=== PATIENT | male | born 1940 | race African-American/Black ===

== ENCOUNTER 2018-01-08 12:09 | Inpatient (IN) ==
[2018-01-08] MEDS ORDERED: FUROSEMIDE 40 MG/4 ML INJECTION IVP ONE (12:33)
--- NOTE | 2018-01-08 12:44 | Emergency Department Report ---
SOB HPI - General Chief Complaint: Shortness of Breath/Dyspnea Stated Complaint: unknown Time Seen by Provider: 01/08/18 12:24 Source: patient, EMS, RN notes reviewed, old records reviewed Mode of arrival: EMS Limitations: no limitations - History of Present Illness 77yo man presents to the ER by EMS for evaluation of dyspnea. Pt was being evaluated by his home health nurse today, when she noted a persistent hypoxemia. Pt has had problems with ERIC and dyspnea since his CABG less than 30 days ago. He was hospitalized less than one week ago for similar sx in [place]; while there, he was diuresed. When discharged, he was not given any diuretics. He normally desat's into the 70-80s with exertion, but pops back up quickly with rest. Today, he did not improve after 10min of rest. Pts legs have been significantly swollen since last night. PT had AMI on 12/25 followed by CABG at [facility]. He was released 12/29 with known slightly elevated creatine. Pt had repeat labs drawn yesterday with an even greater increase and was instructed to go to the ER for further eval. Pt denies any additioanl complaints however family reports decreased appetite, increased foot swelling as well increased difficulty breathing with ambulation. Pt denies fever, chills, cough, nausea, vomiting, diarrhea or chest pain. MD Complaint: shortness of breath Onset (ago): hour(s) Context: recent illness Severity: similar to previous episodes Consistency/Duration: constant Relieving factors: oxygen, rest, upright position Exacerbating factors: lying flat, exertion Known history of: congestive heart failure, other (CABG) Associated symptoms: other (ERIC) Treatment prior to arrival: oxygen - Related Data Home oxygen amount: 4 liters (to 6cm by DE) Home Medications Medication Instructions Recorded Confirmed Aspirin [Adult Aspirin] 81 mg PO DAILY 01/02/18 01/08/18 Atorvastatin [Lipitor] 40 mg PO DAILY 01/02/18 01/08/18 Carvedilol 6.25 mg PO BID 01/02/18 01/08/18 Finasteride [Proscar] 5 mg PO DAILY 01/02/18 01/08/18 Multi-Vitamin Plain [Theragran] 1 tab PO DAILY 01/02/18 01/08/18 PredniSONE [Deltasone 5 mg] 5 mg PO DAILY 01/02/18 01/08/18 Allergies Allergy/AdvReac Type Severity Reaction Status Date / Time No Known Allergies Allergy Verified 01/08/18 12:48 Review of Systems All systems: reviewed and negative except as stated Cardiovascular: Reports: as per HPI, palpitations, dyspnea on exertion, orthopnea, edema. Denies: chest pain, syncope, paroxysmal nocturnal dyspnea Respiratory: Reports: as per HPI, dyspnea. Denies: cough, wheezes, hemoptysis, stridor PFS Patient Stated Medical History Coronary Artery Disease Yes Myocardial Infarction Yes Diabetes Mellitus Type 2 Yes Gastroesophageal Reflux Yes Disease Hx Benign Prostatic Yes Hyperplasia - Social History Smoking status: Former smoker Course - Consultations Consultation #1: Hospitalist: Concern that there is another condition underlying his recent hypoxia, besides just CHF exacerbation. Will admit for further eval. Time: 15:00 Vital Signs Temperature 97.9 F 01/08/18 12:10 Pulse Rate 116 H 01/08/18 12:10 Respiratory Rate 21 01/08/18 12:10 Blood Pressure 135/74 01/08/18 12:10 Pulse Oximetry 91 01/08/18 12:10 Temperature 97.9 F 01/08/18 12:10 Pulse Rate 106 H 01/08/18 13:30 Respiratory Rate 24 01/08/18 13:30 Blood Pressure 139/85 01/08/18 13:30 Pulse Oximetry 93 01/08/18 14:44 Shortness of Breath/Dyspnea - MDM Narrative Medical decision making narrative: Pt with ERIC and hypoxia/dyspnea at rest. Pts renal function has dramatically improved since last ER visit, 6 days ago. However, after diuresis here, hypoxia has not improved to baseline. Discussed care with hospitalist, who has concerns for another, underlying condition contributing to his hypoxia. Will admit for further eval and treatment. - Differential Diagnosis Likely: acute exacerbation of chronic obstructive airways disease, congestive heart failure, community acquired pneumonia, asthma with exacerbation - Medical Records Attestation: I reviewed the patient's medical records. - Lab Data Attestation: I reviewed the patient's lab results. Result diagrams: 01/08/18 13:19 01/08/18 13:19 Lab Results 01/08/18 01/08/18 01/08/18 Range/Units 13:19 13:19 13:24 WBC 13.7 H (4.5-11.0) T/MM3 RBC 4.14 L (4.50-5.90) M/MM3 Hgb 12.3 L (13.5-17.5) GM/DL Hct 38.1 L (41-53) % MCV 92.0 (80-100) UM3 MCH 29.7 (26-34) UUG MCHC 32.3 (31-37) GM/DL RDW Std Deviation 47.9 (36.9-50.2) FL Plt Count 288 (130-400) T/MM3 MPV 8.3 L (9.4-12.4) UM3 Immature Gran % (Auto) 0.2 (0.0-0.5) % Neut % (Auto) 70.9 H (33-66) % Lymph % (Auto) 17.5 L (23-45) % Baldwin % (Auto) 8.4 (0-9.0) % Eos % (Auto) 2.6 (0-4) % Baso % (Auto) 0.4 (0-2) % Neut # (Auto) 9.7 H (1.8-7.7) T/MM3 Lymph # (Auto) 2.4 (1-4.8) T/MM3 Baldwin # (Auto) 1.2 H (0-0.8) T/MM3 Eos # (Auto) 0.4 (0-0.5) T/MM3 Baso # (Auto) 0.1 (0-0.2) T/MM3 Abs Immat Gran (auto) 0.03 (0.00-0.03) T/MM3 Turbidity < 20 (0-20) Sodium 147 H (134-144) MEQ/L Potassium 4.1 (3.6-5) MEQ/L Chloride 110 H (98-107) MEQ/L Carbon Dioxide 26 (22-30) MEQ/L Anion Gap 11 (5-15) meq/L BUN 33.0 H (9-20) MG/DL Creatinine 1.9 H (0.8-1.5) mg/dL GFR Calculation 34 BUN/Creatinine Ratio 17 (6-26) RATIO Glucose 115 H (75-110) MG/DL Glucometer 116 (65-110) mg/dL Calculated Osmolality 290 H (261-280) MOSM/KG Calcium 8.9 (8.4-10.2) MG/DL Icterus Index < 2 (0-7) Troponin I 0.079 (0-0.12) ng/ml NT-Pro-B Natriuret Pep 2370 H (0-175) pg/mL Specimen Hemolysis < 15 (0-25) - Radiology Data Attestation: I reviewed the patient's radiology results. CXR: Findings: Persistent airspace consolidation in the left mid to lower lung field with patchy areas of airspace consolidation in the right midlung and lower lobe. No pneumothorax. No obvious pleural effusion. Heart size and mediastinal contours are stable. Prior CABG. Impression: Stable abnormal appearance of the chest with bilateral airspace disease. - EKG Data EKG #1 EKG attestation: Yes: I reviewed and interpreted this EKG. EKG shows normal: sinus rhythm, intervals, ST-T waves Rate: tachycardia Mckinney/QRS: left axis deviation Voltage: c/w LVH When compared to previous EKG there are: no significant changes Interpretation: no acute changes Disposition Clinical Impression: Hypoxia Congestive heart failure Qualifiers: Heart failure type: unspecified Heart failure chronicity: acute on chronic Qualified Code(s): I50.9 - Heart failure, unspecified CRF (chronic renal failure) Qualifiers: Chronic kidney disease stage: stage 4 (severe) Qualified Code(s): N18.4 - Chronic kidney disease, stage 4 (severe) Disposition: 02 To [facility] Print Language: Romanian Condition: Improved Prescriptions: No Action Aspirin [Adult Aspirin] 81 mg PO DAILY PredniSONE [Deltasone 5 mg] 5 mg PO DAILY Carvedilol 6.25 mg PO BID Atorvastatin [Lipitor] 40 mg PO DAILY Multi-Vitamin Plain [Theragran] 1 tab PO DAILY Finasteride [Proscar] 5 mg PO DAILY Referrals: Ankit Calderón MD [Primary Care Provider] - Time of Disposition: 15:13 - Seen By: physician
[2018-01-08] MEDS: SALINE FLUSH 10ml SYRINGE IVF PRN ×2 (13:05→18:49)
--- NOTE | 2018-01-08 13:10 | XRay Report ---
Indication: dyspnea PROCEDURE: XR chest 1V: Encounter: Initial Comparison: January 02, 2018 Findings: Persistent airspace consolidation in the left mid to lower lung field with patchy areas of airspace consolidation in the right midlung and lower lobe. No pneumothorax. No obvious pleural effusion. Heart size and mediastinal contours are stable. Prior CABG. Impression: Stable abnormal appearance of the chest with bilateral airspace disease. .
[2018-01-08] MEDS ORDERED: SENNA + DOCUSATE TABLET PO PRN (15:19)
[2018-01-08] MEDS ORDERED: ONDANSETRON 4 MG/2 ML INJECTION IVP PRN (15:19)
[2018-01-08] MEDS ORDERED: ACETAMINOPHEN 325 MG TABLET PO PRN (15:19)
[2018-01-08] MEDS ORDERED: MORPHINE SULFATE 4mg INJECTION IVP PRN (15:19)
[2018-01-08] MEDS: BUDESONIDE INH.SOLN 0.5mg/2ml NEB AEROSOL SCH (16:00)
[2018-01-08] MEDS: ALBUTEROL/IPRATROPIUM 2.5mg-0.5mg/3ml NEB AEROSOL SCH ×2 (16:00→21:19)
[2018-01-08 16:37] VITALS: BMI 31.8
--- NOTE | 2018-01-08 17:25 | History & Physical Report ---
History of Present Illness Date: 01/08/18 Chief complaint: acute on chronic respiratory failure, hypernatremia HPI: Jaime Villegas is a very pleasant 77[facility]year-old [facility] today, 01/08/18, for evaluation of hypoxia. He reports that on 12/20/17 he was admitted to [facility] in [place] and found to be having an acute STEMI. He subsequently underwent an emergent CABG x [address] Hawley on 12/20/17. He has a reported history of pulmonary fibrosis which complicated his respiratory status post-operatively. He was noted to have a leukocytosis but remained afebrile. He was treated with prednisone 10mg daily as well as IV Cefepime. Sputum culture on 12/24/17 revealed pseudomonas aeruginosa. He was discharged home on 12/29/17 on Levaquin as well as prednisone 5mg daily for continued pulmonary treatment. He also sustained an acute kidney injury with his SCr increasing to 1.84 post-operatively after receiving Bumex and metolazone. His reported baseline SCr is 1.3-1.6. Diuretics were held and he was given a slow bolus of IV fluids. His renal function slowly began trending down at time of discharge on 12/29/17 at 1.76. He reports that after returning home where he lives alone, he was doing well. He had follow-up labs done on 01/02/18 and was notified by his manufacturing scheduler that his SCr was elevated at 3. He was instructed to go to the emergency department. He presented to [facility] and was transferred to [facility] for continuation of care. Upon arrival to [facility], his weight was noted to be 100.6 kg (decreased from his weight of 106kg at time of CABG). His respiratory status was reportedly stable on his baseline 4L NC with no peripheral edema noted. Dr. Brandon, nephrology, was consulted and all nephrotoxic drugs were held including diuresis. Renal ultrasound was unremarkable. Pulmonary was consulted for further evaluation of his idiopathic pulmonary fibrosis and recommended continuation of prednisone 5mg daily with consideration of PFTs and sleep evaluation as an outpatient. He was treated with gentle hydration with slow improvement in his renal function, trending down to 1.99 on discharge from 3.06 on admission. At the time of discharge, he was recommended to consider SNU but he refused. He was discharged home with home health. Today, 01/08/18, he reports that his home health nurse was checking on him and reported that his oxygen saturation was low at 78% on 4L. He denies any increased shortness of breath, chest pain, abdominal pain, nausea, vomiting or dysuria. He does admit to having increased pedal edema though denies any cough , sputum production, dizziness or lightheadedness. He was brought to [facility] via EMS. Upon arrival, he was requiring 10L high flow oxygen which was able to be decreased to 6L with a pulse ox of 91%. Labs were obtained and revealed persistent leukocytosis (WBC 13.7) which is decreased from prior labs at [facility]. Anemia (Hgb 12.3) also noted with hypernatremia (Na 147). SCr remains elevated from base line at 1.9 with BUN 33. Troponin wsa 0.079 and BNP was 2370. CXR was obtained and revealed stable abnormal appearance of chest with bilateral airspace disease. Given his acute on chronic respiratory failure with leukocytosis and hypernatremia, Dr. Beaver was consulted and he was admitted into observation status for further evaluation and treatment. While in the ED, he was given Lasix 40mg IV x 1 dose. Weight on admission was found to be 101kg (as compared to his prior weight on 01/03/18 at 100.6 kg). Review of Systems All systems PM: 10-point ROS was reviewed, no additional remarkable complaints except - Constitutional Constitutional: Absent: chills, fatigue, fever(s), weakness - EENMT Eyes: Absent: change in vision, photophobia Ears: Absent: ear pain Balance: Absent: falling to one side Nose: Absent: nosebleeds Mouth/Throat: Absent: pain, changes in swallowing, dry mouth - Cardiovascular Cardiovascular: Present: chest pain (secondary to recent surgery), dyspnea on exertion, edema. Absent: palpitations, syncope Rhythm: Present: regular rhythm Vascular: Present: pedal edema. Absent: pallor of an extermity, unilateral swelling - Respiratory Respiratory: Present: dyspnea, dyspnea on exertion. Absent: cough, hemoptysis, wheezing - Gastrointestinal Gastrointestinal: Absent: abdominal pain, diarrhea, melena, nausea, vomiting - Genitourinary Genitourinary: Absent: dysuria, flank pain, hematuria - Musculoskeletal Musculoskeletal: Absent: deformity, muscle weakness - Integumentary/Breasts Integumentary: Absent: rash - Neurological Neurological: Absent: dizziness, headache(s), vertigo, weakness - Psychiatric Psychiatric: Absent: anxiety, depression - Endocrine Endocrine: Absent: flushing, palpitations - Hematologic/Lymphatic Hematologic/Lymphatic: Present: easy bruising (recent treatment with heparin) - Allergic/Immunologic Allergic/Immunologic: Absent: seasonal rhinorrhea Past Medical History Medical History Updates: Chronic hypoxic respiratory failure. Supplemental home oxygen dependence at 4L NC. Idiopathic pulmonary fibrosis. Former tobaccoism. Obesity - BMI >30. CAD - CABG x 3 on 12/20/17. CHF - grade 1 diastolic dysfunction - EF 40-45%, mild MR/TR. Recent AMELIA - SCr increased to 3.06 on 01/02/18. Chronic kidney disease, stage 3 - baseline SCr 1.3-1.6. Hyperlipidemia. BPH. GERD. Surgical History: CABG x 3 - 12/20/17, Dr. Hawley. Tonsillectomy. Family History: Unable to obtain as patient is a poor historian. Possible family history of TB. Family History: As Above - Social History Smoking status: Former smoker (quit 1973) Packs per day: 1 Packs-years: 20 Substance use type: does not use Alcohol intake frequency: does not drink Housing: house Household members: none service: Yes Current occupational status: retired Does patient use chewing tobacco?: No Current residence: Apartment/Private Home Social history: PCP - Dr. Ankit Calderón ([facility]). Nephro - Dr. Brandon. Cardio - Dr. Hawley. Pulm - Dr. Hi. Medications Home Medications Medication Instructions Recorded Confirmed Type Aspirin [Adult Aspirin] 81 mg PO DAILY 01/02/18 01/08/18 History Atorvastatin [Lipitor] 40 mg PO DAILY 01/02/18 01/08/18 History Carvedilol 6.25 mg PO BID 01/02/18 01/08/18 History Finasteride [Proscar] 5 mg PO DAILY 01/02/18 01/08/18 History Multi-Vitamin Plain [Theragran] 1 tab PO DAILY 01/02/18 01/08/18 History PredniSONE [Deltasone 5 mg] 5 mg PO DAILY 01/02/18 01/08/18 History Allergies Allergy/AdvReac Type Severity Reaction Status Date / Time No Known Allergies Allergy Verified 01/08/18 12:48 Exam Vital Signs: Temperature 97.9 F 01/08/18 12:10 Pulse Rate 106 H 01/08/18 16:27 Respiratory Rate 24 01/08/18 16:27 Blood Pressure 135/72 01/08/18 15:44 Pulse Oximetry 97 01/08/18 16:27 Telemetry Rhythm: Sinus Tachycardia Height/Weight/BMI: Height 5 ft 10 in Weight 222 lb 7.143 oz Body Mass Index 31.8 Comments: Patient sitting up in bed having just received a breathing treatment. Breathing easily on 6L NC. - Constitutional Present: no acute distress, well nourished, well developed, obese, cooperative - Routine HEENT Exam Head: Present: normocephalic, atraumatic Eye: Present: PERRL. Absent: conjunctival icterus ENT: Present: mucous membranes moist, oropharynx clear - Routine Neck Exam Present: supple, full ROM, trachea midline - Routine Chest/Breast/Axilla Exam Chest wall: Absent: pacemaker - Routine Respiratory Exam Present: decreased breath sounds. Absent: wheezes Comments: Diminished breath sounds bilaterally with course breath sounds in bilateral bases. - Routine Cardiovascular Exam Present: S1, S2, tachycardia Comments: healing surgical incision along sternum without signs of infection. - Routine Abdominal Exam Present: soft, normoactive bowel sounds, non tender - Routine Extremities Exam Present: edema (2+ bilateral pedal), non tender, full ROM, pulses intact - Routine Back/Spine/Pelvis Exam Back/Spine: Present: full ROM. Absent: vertebral tenderness - Routine Skin Exam Present: intact, dry, warm Comments: Afebrile. - Routine Neurological Exam Present: alert, moving all extremities, hearing grossly intact, normal speech some difficulty recalling details regarding past history and recent events. - Routine Psychiatric Exam Present: cooperative Results - Labs CBC & Chem 7: 01/08/18 13:19 01/08/18 13:19 Assessment and Plan Assessment and Plan: Assessment: Acute medical conditions present on admission: Acute on chronic hypoxic and hypercapnic respiratory failure. Leukocytosis (WBC 13.7). Anemia (Hgb 12.3). Hypernatremia (Na 147). Chronic medical conditions: Supplemental home oxygen dependence at 4L NC. Idiopathic pulmonary fibrosis. Former tobaccoism. Obesity - BMI >30. CAD - CABG x 3 on 12/20/17. CHF - grade 1 diastolic dysfunction - EF 40-45%, mild MR/TR. Recent AMELIA - SCr increased to 3.06 on 01/02/18. Chronic kidney disease, stage 3 - baseline SCr 1.3-1.6. Hyperlipidemia. BPH. GERD. Plan - 01/08/18: Patient admitted to observation status under the care of Dr. Beaver. Concern for SIRS/sepsis, though no infection identified. Suspect pulmonary source. Initiate zosyn IV for empiric pulmonary coverage. Lasix 40mg IV x 1 dose given in ED due to concern for fluid overload. Weight up 1 kg in 1 week. Monitor urinary output closely as well as daily weight. Given persistent leukocytosis with respiratory failure, will obtain blood cultures as well as sputum culture. Sputum culture on 12/24/17 revealed pseudomonas aeruginosa which was treated with Cefepime while inpatient and Levaquin as outpatient - course complete. Initial lactate 1.8. Troponin 0.079 and BNP 2370. Will monitor serial troponins and lactates. Will monitor closely on telemetry with continuous pulse oximetry. Supplemental oxygen as needed to maintain SAO2 >90%. Baseline on 4L NC at home. Will consult pulmonology given history of pulmonary fibrosis. Continue home prednisone 5mg daily. Initiate DuoNeb treatments as well as Pulmicort. Incentive spirometry. SCr elevated compared to baseline at 1.9. 1.99 on 01/06/18. Continue to monitor closely. Recheck labs in AM to monitor blood counts, electrolytes and renal function. Upon discharge, his care will be returned to his PCP at the [place]. He requests to be a FULL CODE. DVT Prophylaxis: SCD's Resuscitation Status: Full Code - Time spent with patient Time with patient PN: 70 minutes - Physician Narrative Physician: Olga Beaver MD Narrative: Date: 01/08/18 Time: 1800 Mr. Villegas was independently interviewed and examined by me. He is resting comfortably. He tells me the only reason he's here is because his home health nurse came and found his oxygen saturation lower than it should be. He denies feeling bad. He denies shortness of breath. He denies cough or sputum production. He denies any fevers or chills. He denies any chest pain or palpitations. He does have lower extremity edema but reports that is actually better than it has been. He denies any nausea, vomiting, diarrhea, constipation. His most recent bowel movement was yesterday. He denies any problems urinating. PE: Gen: alert and oriented. NAD, oxygen in place Skin: warm and dry HEENT: NC/AT PERRL, EOMI, Sclera, lids and conjunctiva wnl, MMM, OP clear Neck: supple. No JVD, Carotids 2+ without bruits. Lungs: coarse BS, No rales or wheezes CV: regular. No murmur, rub or gallop Abd: soft. NT/ND, +BS MS: 2+ edema, some wrinkling indicating decreased edema. SCDs in place. Good strength and ROM. Neuro: No focal deficit Psy: normal mood and affect Assessment and plan: Acute on chronic hypoxic and hypercapnic respiratory failure. -On chronic oxygen therapy -May need diureses but for now will hold off -Antibiotics -Pt did receive Lasix 40mg IV in ED Leukocytosis (WBC 13.7). -Initiate zosyn for pseudomonas -Repeat lab in am Anemia (Hgb 12.3). Hypernatremia (Na 147). -Follow labs Idiopathic pulmonary fibrosis. -Consult Pulm -On predisone Obesity - BMI >30. CAD - CABG x 3 on 12/20/17. -On aspirin, statin and BBL CHF - grade 1 diastolic dysfunction - EF 40-45%, mild MR/TR. -Diurese as needed Recent AMELIA - SCr increased to 3.06 on 01/02/18. Chronic kidney disease, stage 3 - baseline SCr 1.3-1.6. -Follow renal function Hyperlipidemia. -On lipitor BPH. -On finasteride GERD. -Start PPI Upon discharge, [facility] He requests to be a FULL CODE. DVT Prophylaxis: SCD's I have reviewed the patient's labs, notes and imaging. The assessment and plan has been done in conjunction with Edith turner physician ict sales assistant. I agree with was documented above. Hospital Course Summary Disclaimer: The visit summary below is not to be considered part of the above Progress Note. Hospital Course: Plan - 01/08/18: Patient admitted to observation status under the care of Dr. Sd. Concern for SIRS/sepsis, though no infection identified. Suspect pulmonary source. Initiate zosyn IV for empiric pulmonary coverage. Lasix 40mg IV x 1 dose given in ED due to concern for fluid overload. Weight up 1 kg in 1 week. Monitor urinary output closely as well as daily weight. Given persistent leukocytosis with respiratory failure, will obtain blood cultures as well as sputum culture. Sputum culture on 12/24/17 revealed pseudomonas aeruginosa which was treated with Cefepime while inpatient and Levaquin as outpatient - course complete. Initial lactate 1.8. Troponin 0.079 and BNP 2370. Will monitor serial troponins and lactates. Will monitor closely on telemetry with continuous pulse oximetry. Supplemental oxygen as needed to maintain SAO2 >90%. Baseline on 4L NC at home. Will consult pulmonology given history of pulmonary fibrosis. Continue home prednisone 5mg daily. Initiate DuoNeb treatments as well as Pulmicort. Incentive spirometry. SCr elevated compared to baseline at 1.9. 1.99 on 01/06/18. Continue to monitor closely. Recheck labs in AM to monitor blood counts, electrolytes and renal function. Upon discharge, his care will be returned to his PCP at the [place]. He requests to be a FULL CODE.
[2018-01-08] MEDS: CARVEDILOL 6.25 MG TABLET PO SCH (18:04)
[2018-01-08] MEDS: PIPERACILLIN/TAZOBACTAM 3.375 GM in NS 100 ML IV SCH (18:48)
[2018-01-08] MEDS: NS FLUSH BAG 500ml IV PRN (18:53)
[2018-01-08] MEDS ORDERED: ALBUTEROL/IPRATROPIUM 2.5mg-0.5mg/3ml NEB AEROSOL SCH (19:00)
[2018-01-08] MEDS: ATORVASTATIN 40 MG TABLET PO SCH (21:36)
[2018-01-09] MEDS: ALBUTEROL/IPRATROPIUM 2.5mg-0.5mg/3ml NEB AEROSOL SCH ×6 (02:01→21:20)
[2018-01-09] MEDS: PIPERACILLIN/TAZOBACTAM 3.375 GM in NS 100 ML IV SCH ×2 (02:44→11:04)
--- NOTE | 2018-01-09 09:31 | XRay Report ---
INDICATION: Pna PROCEDURE: CHEST 2-VIEWS UPRIGHT (PA & LAT) Encounter: Initial COMPARISON: January 08, 2018 FINDINGS: Lungs are hypoinflated with bilateral airspace disease, much greater on the left. No pneumothorax or obvious pleural effusion. Heart size and mediastinal contours are stable. Prior sternotomy changes. Impression: Continued severe airspace disease on the left could be due to pneumonia, aspiration or edema. Chest CT may be helpful to exclude mass as clinically indicated. .
[2018-01-09] MEDS: BUDESONIDE INH.SOLN 0.5mg/2ml NEB AEROSOL SCH ×2 (09:46→21:20)
--- NOTE | 2018-01-09 10:09 | Progress Note ---
- Date 01/09/18 Subjective: F/U: acute on chronic respiratory failure, anemia, hypernatremia. Jaime is seen while resting in bed. He reports that he is feeling good and denies any complaints or concerns. No chest pain, increased shortness of breath , abdominal pain, nausea, vomiting or dysuria. He states he didn't have much of an appetite today. Urinary output stable. WBC remains stable at 13.7. Slight decrease in hemoglobin at 11.8. Persistent hypernatremia (Na 148) and slight increase in SCr to 2.0 (up from 1.9). Patient received Lasix 40mg IV x 1 dose in ED prior to admission. Serial troponins tended up, but now trending down (0.079, 0.089, 0.105, 0.106, 0.098). He remains tachycardic with low grade temperature at 99.0. Serial lactate 1.8 then decreased to 1.6. Procalcitonin 0.08. Repeat CXR this morning revealed continued severe airspace disease on left could be pneumonia, aspiration or edema. Recommends CT chest. Objective Vital signs: Temperature 99.0 F 01/09/18 04:00 Pulse Rate 103 H 01/09/18 04:00 Respiratory Rate 18 01/09/18 05:41 Blood Pressure 132/79 01/09/18 04:00 Pulse Oximetry 92 01/09/18 05:41 Rhythm: Sinus Tachycardia Height/Weight/BMI: Height 5 ft 10 in Weight 222 lb 7.143 oz Body Mass Index 31.8 Comments: Resting in bed. - Constitutional Present: no acute distress, well nourished, well developed, cooperative - Routine HEENT Exam Head: Present: normocephalic, atraumatic Eye: Present: PERRL. Absent: conjunctival icterus ENT: Present: mucous membranes dry, oropharynx clear - Routine Respiratory Exam Comments: Diminished breath sounds bilaterally with bilateral course sounds. No cough or conversational dyspnea. - Routine Cardiovascular Exam Present: S1, S2, tachycardia - Routine Abdominal Exam Present: soft, normoactive bowel sounds, non tender - Routine Extremities Exam Present: edema (trace), non tender, pulses intact - Routine Back/Spine/Pelvis Exam Back/Spine: Present: full ROM. Absent: vertebral tenderness - Routine Musculoskeletal Exam Musculoskeletal: Present: no clubbing or cyanosis, moving extremities well - Routine Skin Exam Present: intact, dry, warm Comments: low grade temperature 99.0. - Routine Neurological Exam Present: alert, moving all extremities, hearing grossly intact, normal speech - Routine Lymphatic Exam Lymphatic: Absent: lymphedema - Routine Psychiatric Exam Present: cooperative Results - Labs CBC & Chem 7: 01/09/18 04:41 01/09/18 04:41 Microbiology Results: Microbiology 01/08/18 23:55 Sputum, Expectorated Gram Stain - Final Not performed 01/08/18 23:55 Sputum, Expectorated Sputum Culture - Preliminary Culture Initiated - Results Pending 01/08/18 17:35 Sputum, Induced Gram Stain - Final 01/08/18 17:35 Sputum, Induced Sputum Culture - Final 01/08/18 17:12 Peripheral/Iv Start Blood Culture - Preliminary Culture Initiated - Results Pending 01/08/18 17:07 Peripheral/Iv Start Blood Culture - Preliminary Culture Initiated - Results Pending - Imaging and Cardiology Chest x-ray Status: image reviewed by me Additional comments: Date of Exam: 01/09/18 Type of Exam(s): XR chest 2V Reason for Exam(s): Pna INDICATION: Pna PROCEDURE: CHEST 2-VIEWS UPRIGHT (PA & LAT) Encounter: Initial COMPARISON: January 08, 2018 FINDINGS: Lungs are hypoinflated with bilateral airspace disease, much greater on the left. No pneumothorax or obvious pleural effusion. Heart size and mediastinal contours are stable. Prior sternotomy changes. Impression: Continued severe airspace disease on the left could be due to pneumonia, aspiration or edema. Chest CT may be helpful to exclude mass as clinically indicated. Assessment and Plan Assessment and Plan: Assessment: Acute medical conditions present on admission: Pneumonia Acute on chronic hypoxic and hypercapnic respiratory failure. Leukocytosis (WBC 13.7). Anemia (Hgb 12.3). Hypernatremia (Na 147). Chronic medical conditions: Supplemental home oxygen dependence at 4L NC. Idiopathic pulmonary fibrosis. Former tobaccoism. CAD - CABG x 3 on 12/20/17. CHF - grade 1 diastolic dysfunction - EF 40-45%, mild MR/TR. Recent AMELIA - SCr increased to 3.06 on 01/02/18. Chronic kidney disease, stage 3 - baseline SCr 1.3-1.6. Hyperlipidemia. BPH. GERD. Obesity - BMI >30. Plan - 01/09/18: Continued increased oxygen demand, elevated renal function and white count. Continued concern for SIRS/sepsis, though no infection identified. Suspect pulmonary source. Continue Zosyn IV for empiric pulmonary coverage (day 2). Blood and sputum cultures pending. Slight increase in SCr to 2.0 (up from 1.9). Lasix 40mg IV x 1 dose given in ED prior to admission. Urinary output adequate. Continue to monitor urinary output closely. Hypernatremia with slight increase in Na to 148. Patient appears clinical dry. Will initiate NS 75cc/hr for gentle hydration. Sputum culture on 12/24/17 revealed pseudomonas aeruginosa which was treated with Cefepime while inpatient and Levaquin as outpatient - course complete. Initial lactate 1.8 - decreased to 1.6. Troponin 0.079, 0.089, 0.105, 0.106, 0.098. Will consult cardiology given recent CABG and persistent tachycardia. Will monitor closely on telemetry with continuous pulse oximetry. Supplemental oxygen as needed to maintain SAO2 >90%. Baseline on 4L NC at home. Wean as able. Continues to have increased oxygen demands. Will consult pulmonology given history of pulmonary fibrosis. Continue home prednisone 5mg daily. Initiate DuoNeb treatments as well as Pulmicort. Incentive spirometry. Continue respiratory cares. Recheck labs in AM to monitor blood counts, electrolytes and renal function. [place] With continued increased need for oxygen above and beyond baseline, coupled with pneumonia, will change admission status to inpatient. DVT Prophylaxis: SCD's Resuscitation Status: Full Code - Time spent with patient Time with patient PN: 30 minutes - Physician Narrative Physician: Remigio Coleman MD Narrative: Date: 01/09/18 Time: 1317 Have independently interviewed & examined pt. Chart reviewed. Cased discussed with CM & my PA. Care plan developed with my supervision; agree with above. Feel like he is improving. Still notes SOA, notes work of breathing both at rest and with activities increased from baseline. Does feel needs increase O2 flow to help. Not having cough/congestion. No pain with breathing. No f/c. Denies nausea or ab pain. Urinating well - feels is able to empty bladder and not having to struggle or strain at urine. Strength decreased-fatigues with activities. Lungs: decreased breath sounds CV: regular AB: soft nt BS present MSE: awake alert appropriate Plan: With continued increased need for oxygen above and beyond baseline, coupled with pneumonia, will change admission status to inpatient. Continue with Zosyn for pulmonary coverage. Continue supplemental O2, weaning as able. Cautious use of IVF. Monitor lab. Pulm and Cardiology to see today. Hospital Course Summary Disclaimer: The visit summary below is not to be considered part of the above Progress Note. Hospital Course: 01/08/18 OBS Patient admitted to observation status under the care of Dr. Beaver. Concern for SIRS/sepsis, though no infection identified. Suspect pulmonary source. Initiate zosyn IV for empiric pulmonary coverage. Lasix 40mg IV x 1 dose given in ED due to concern for fluid overload. Weight up 1 kg in 1 week. Monitor urinary output closely as well as daily weight. Given persistent leukocytosis with respiratory failure, will obtain blood cultures as well as sputum culture. Sputum culture on 12/24/17 revealed pseudomonas aeruginosa which was treated with Cefepime while inpatient and Levaquin as outpatient - course complete. Initial lactate 1.8. Troponin 0.079 and BNP 2370. Will monitor serial troponins and lactates. Will monitor closely on telemetry with continuous pulse oximetry. Supplemental oxygen as needed to maintain SAO2 >90%. Baseline on 4L NC at home. Will consult pulmonology given history of pulmonary fibrosis. Continue home prednisone 5mg daily. Initiate DuoNeb treatments as well as Pulmicort. Incentive spirometry. SCr elevated compared to baseline at 1.9. 1.99 on 01/06/18. Continue to monitor closely. Recheck labs in AM to monitor blood counts, electrolytes and renal function. Upon discharge, his care will be returned to his PCP at the [facility]. He requests to be a FULL CODE. 01/09/18 With continued increased need for oxygen above and beyond baseline, coupled with pneumonia, will change admission status to inpatient. Continued increased oxygen demand, elevated renal function and white blood count. Suspect pulmonary source - pneumonia. Continue Zosyn IV for empiric pulmonary coverage (day 2). Blood and sputum cultures pending. Slight increase in SCr to 2.0 (up from 1.9). Lasix 40mg IV x 1 dose given in ED prior to admission. Urinary output adequate. Continue to monitor urinary output closely. Hypernatremia with slight increase in Na to 148. Patient appears clinical dry. Will initiate NS 75cc/hr for gentle hydration. Sputum culture on 12/24/17 revealed pseudomonas aeruginosa which was treated with Cefepime while inpatient and Levaquin as outpatient - course complete. Initial lactate 1.8 - decreased to 1.6. Troponin 0.079, 0.089, 0.105, 0.106, 0.098. Will consult cardiology given recent CABG and persistent tachycardia. Will monitor closely on telemetry with continuous pulse oximetry. Supplemental oxygen as needed to maintain SAO2 >90%. Baseline on 4L NC at home. Wean as able. Continues to have increased oxygen demands. Will consult pulmonology given history of pulmonary fibrosis. Continue home prednisone 5mg daily. Initiate DuoNeb treatments as well as Pulmicort. Incentive spirometry. Continue respiratory cares.
[2018-01-09] MEDS: FINASTERIDE 5 MG TABLET PO SCH (10:57)
[2018-01-09] MEDS: ASPIRIN *EC* 81 MG TABLET PO SCH (10:58)
[2018-01-09] MEDS: MULTI-VITAMIN PLAIN TABLET PO SCH (10:58)
[2018-01-09] MEDS: PredniSONE 5 MG TABLET PO SCH (10:58)
[2018-01-09] MEDS: CARVEDILOL 6.25 MG TABLET PO SCH ×2 (10:58→18:39)
[2018-01-09] MEDS: POLYETHYL GLYCOL 3350 17gm PACKET PO SCH (10:58)
[2018-01-09] MEDS: NS 1,000 ML IV SCH ×3 (10:59→23:09)
--- NOTE | 2018-01-09 12:47 | Cardiology Consult Note ---
<Chely Cano - Last Filed: 01/10/18 11:23> History of Present Illness Consult date: 01/09/18 Requesting physician: Remigio Coleman Consult reason: shortness of breath Chief complaint: SOA History of present illness: Jaime is a 77 year old male patient who presented to [facility] for evaluation of hypoxia. He reports that on 12/20/17 he was admitted to [facility] in [place] and found to be having an acute STEMI. He subsequently underwent an emergent LHC with aortic balloon pump placement by Dr. Hawley and CABG x [address] Reena Dean on 12/20/17. He has a reported history of pulmonary fibrosis which complicated his respiratory status post-operatively. He reports that after returning home where he lives alone, he was doing well. He had follow-up labs done on 01/02/18 and was notified by his manager of recruiting that his SCr was elevated at 3. He was instructed to go to the ED. He presented to [facility] and was transferred to [facility] for continuation of care. Upon arrival to [facility], his weight was noted to be 100.6 kg (decreased from his weight of 106kg at time of CABG). His respiratory status was reportedly stable on his baseline 4L NC with no peripheral edema noted. Dr. Brandon, nephrology, was consulted and all nephrotoxic drugs were held including diuresis. Renal ultrasound was unremarkable. Pulmonary was consulted for further evaluation of his idiopathic pulmonary fibrosis and recommended continuation of prednisone 5mg daily with consideration of PFTs and sleep evaluation as an outpatient. He was treated with gentle hydration with slow improvement in his renal function, trending down to 1.99 on discharge from 3.06 on admission. At the time of discharge, he was recommended to consider SNU but he refused. He was discharged home with home health. Yesterday, his home health nurse was checking on him and reported that his oxygen saturation was low at 78% on 4L with increased pedal edema. He was brought to [facility] via EMS. Upon arrival, he was requiring 10L high flow oxygen which was able to be decreased to 6L with a pulse ox of 91%. Labs revealed WBC 13.7, Hgb 12.3, Na 147, SCr 1.9, BUN 33, Troponin 0.079 and BNP 2370. CXR revealed stable abnormal appearance of chest with bilateral airspace disease. He denied any increased shortness of breath, chest pain, abdominal pain, nausea , vomiting or dysuria. Denies any cough, sputum production, dizziness or lightheadedness. Given his acute on chronic respiratory failure with leukocytosis and hypernatremia, Dr. Beaver was consulted and he was admitted into observation status for further evaluation and treatment. Today Dr. Riley is consulted for further evaluation s/p CABG with SOA. Echo obtained 12/23/17: Mildly reduced systolic function with EF 40-45%, moderate concentric hypertrophy, LAD, Mild MR, trivial AoR, mild TR Review of Systems - Constitutional Constitutional: Present: fatigue. Absent: chills, fever(s) - EENMT Eyes: Absent: change in vision Balance: Absent: vertigo Mouth/Throat: Absent: sore throat - Cardiovascular Cardiovascular: Present: dyspnea on exertion, orthopnea, edema. Absent: chest pain, palpitations Vascular: Present: pedal edema - Respiratory Respiratory: Present: dyspnea, dyspnea on exertion. Absent: cough - Gastrointestinal Gastrointestinal: Absent: abdominal pain, diarrhea, nausea, vomiting - Genitourinary Genitourinary: Absent: dysuria - Neurological Neurological: Absent: dizziness - Endocrine Endocrine: Absent: palpitations PFSH Patient Stated Medical History Coronary Artery Disease Yes Myocardial Infarction Yes Diabetes Mellitus Type 2 Yes Gastroesophageal Reflux Yes Disease Hx Benign Prostatic Yes Hyperplasia Depression Yes Medical History Updates: Chronic hypoxic respiratory failure. Supplemental home oxygen dependence at 4L NC. Idiopathic pulmonary fibrosis. Former tobaccoism. Obesity - BMI >30. CAD - CABG x 3 on 12/20/17. CHF - grade 1 diastolic dysfunction - EF 40-45%, mild MR/TR. Recent AMELIA - SCr increased to 3.06 on 01/02/18. Chronic kidney disease, stage 3 - baseline SCr 1.3-1.6. Hyperlipidemia. BPH. GERD. Surgical History: CABG x 3 - 12/20/17, Dr. Reena Dean. . Tonsillectomy. Family History: Unable to obtain as patient is a poor historian. Possible family history of TB. - Social History Smoking status: Former smoker (quit 1973) Packs per day: 1 Packs-years: 20 Substance use type: does not use Alcohol intake frequency: does not drink Housing: house Household members: none service: Yes Current occupational status: retired Does patient use chewing tobacco?: No Current residence: Apartment/Private Home Medications Home Medications Medication Instructions Recorded Confirmed Type Aspirin [Adult Aspirin] 81 mg PO DAILY 01/02/18 01/08/18 History Atorvastatin [Lipitor] 40 mg PO DAILY 01/02/18 01/08/18 History Carvedilol 6.25 mg PO BID 01/02/18 01/08/18 History Finasteride [Proscar] 5 mg PO DAILY 01/02/18 01/08/18 History Multi-Vitamin Plain [Theragran] 1 tab PO DAILY 01/02/18 01/08/18 History PredniSONE [Deltasone 5 mg] 5 mg PO DAILY 01/02/18 01/08/18 History Allergies Allergy/AdvReac Type Severity Reaction Status Date / Time No Known Allergies Allergy Verified 01/08/18 12:48 Exam Vital signs: Temperature 98 F 01/09/18 08:00 Pulse Rate 94 01/09/18 08:00 Respiratory Rate 20 01/09/18 09:50 Blood Pressure 130/83 01/09/18 08:00 Pulse Oximetry 92 01/09/18 09:50 - Constitutional no acute distress, well nourished, cooperative - Routine HEENT Exam Head: Present: normocephalic ENT: Present: mucous membranes dry - Routine Neck Exam Absent: JVD, carotid bruit - Routine Chest/Breast/Axilla Exam Chest wall: Absent: tenderness - Routine Respiratory Exam Present: dyspnea, rhonchi (bases). Absent: CTA bilaterally - Routine Cardiovascular Exam Present: RRR, no murmur. Absent: JVD - Routine Abdominal Exam Present: soft, non tender - Routine Extremities Exam Present: edema - Routine Skin Exam Present: intact, dry, warm - Routine Neurological Exam Present: alert, oriented X3 - Routine Psychiatric Exam Present: normal affect, normal thought process Results 01/10/18 03:53 01/10/18 03:53 Cardiac Enzymes 01/08/18 01/08/18 01/09/18 Range/Units 17:07 22:18 04:41 AST (17-59) U/L Troponin I 0.089 0.105 0.106 (0-0.12) ng/ml 01/09/18 01/09/18 Range/Units 09:24 09:24 AST 37 (17-59) U/L Troponin I 0.098 (0-0.12) ng/ml CBC 01/09/18 Range/Units 04:41 WBC 13.7 H (4.5-11.0) T/MM3 RBC 4.00 L (4.50-5.90) M/MM3 Hgb 11.8 L (13.5-17.5) GM/DL Hct 36.6 L (41-53) % Plt Count 271 (130-400) T/MM3 Neut # (Auto) 10.1 H (1.8-7.7) T/MM3 Lymph # (Auto) 2.2 (1-4.8) T/MM3 [place] # (Auto) 1.0 H (0-0.8) T/MM3 Eos # (Auto) 0.4 (0-0.5) T/MM3 Baso # (Auto) 0.0 (0-0.2) T/MM3 Comprehensive Metabolic Panel 01/09/18 01/09/18 Range/Units 04:41 09:24 Sodium 148 H (134-144) MEQ/L Potassium 4.0 (3.6-5) MEQ/L Chloride 108 H (98-107) MEQ/L Carbon Dioxide 29 (22-30) MEQ/L BUN 30.0 H (9-20) MG/DL Creatinine 2.0 H (0.8-1.5) mg/dL Glucose 112 H (75-110) MG/DL Calcium 8.4 (8.4-10.2) MG/DL Unconjugated Bilirubin 0.70 (0.00-1.1) mg/dL AST 37 (17-59) U/L ALT 53 H (1-50) U/L Alkaline Phosphatase 85 (38-126) U/L Total Protein 6.4 (6.3-8.2) g/dL Albumin 2.9 L (3.5-5.0) g/dL Intake and Output 01/08/18 01/09/18 01/09/18 22:59 06:59 14:59 Intake Total 218 / 218 650 / 650 Output Total 550 / 550 500 / 500 Balance -332 / -332 150 / 150 Intake: IV 100 / 100 100 / 100 Piperacillin/Tazobactam 3.375 100 / 100 100 / 100 gm In Ns 100 ml @ 200 mls/hr IV Q8H [facility] Rx#:[id number] Oral 118 / 118 550 / 550 Output: Urine 550 / 550 500 / 500 Other: Urine Appearance Clear Clear Urine Color Yellow Yellow Urine Odor Normal # Voids 1 Weight 222 lb 7.143 oz 228 lb 6.382 oz Patient Weight 01/10/18 06:59 Weight 228 lb 6.382 oz - Imaging and Cardiology Echo: pending Imaging & Cardiology Narrative: Date of Exam: 01/09/18 Ordering Provider: Olga Beaver MD Type of Exam(s): XR chest 2V Reason for Exam(s): Pna INDICATION: Pna PROCEDURE: CHEST 2-VIEWS UPRIGHT (PA & LAT) Encounter: Initial COMPARISON: January 08, 2018 FINDINGS: Lungs are hypoinflated with bilateral airspace disease, much greater on the left. No pneumothorax or obvious pleural effusion. Heart size and mediastinal contours are stable. Prior sternotomy changes. Impression: Continued severe airspace disease on the left could be due to pneumonia, aspiration or edema. Chest CT may be helpful to exclude mass as clinically indicated. 01/09/18 15:19 EKG interpretations - EKG EKG results cardiology: sinus rhythm EKG shows: tachycardia - Dysrhythmias Ventricular dysrhythmias: ventricular premature complexes (occasional) - Blocks, axis, hypertrophy, ST abn Chamber hypertrophy or enlargement: left ventricular hypertrophy or enlargement (LVE) Assessment and Plan - Assessment and Plan (1) Acute and chronic respiratory failure Current visit: Yes Status: Acute On chronic O2 4L at home - currently on high flow NC at 11L. - Antibiotics, nebulizers per attending (2) Atherosclerotic heart disease of [place] coronary artery without angina pectoris Current visit: Yes Status: Chronic - CABG x 3 on 12/20/17. - On aspirin, statin and BB - Serial troponin negative (3) Congestive heart failure Current visit: Yes Status: Chronic - grade 1 diastolic dysfunction - EF 40-45%, mild MR/TR. - Repeat 2D Echo - BNP (4) CKD (chronic kidney disease) Current visit: Yes Status: Chronic stage 3 - baseline SCr 1.3-1.6. -Follow renal function (5) Mixed hyperlipidemia Current visit: Yes Status: Chronic -On Atorvastatin - Assessment and Plan Acute on chronic Respiratory failure: On chronic O2 4L at home - currently on high flow NC at 11L. 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 Dr. Reena Dean -On aspirin, statin and BB - serial troponin negative CHF - grade 1 diastolic dysfunction - EF 40-45%, mild MR/TR. - Repeat 2 D echo - BNP CKD: Recent AMELIA - SCr increased to 3.06 on 01/02/18. - stage 3 - baseline SCr 1.3-1.6. -Follow renal function HLD: -On Atorvastatin Thank you for allowing us to participate in the care of this patient. Hospital Course Summary Disclaimer: The visit summary below is not to be considered part of the above Progress Note. Hospital Course: Plan - 01/08/18: Patient admitted to observation status under the care of Dr. Beaver. Concern for SIRS/sepsis, though no infection identified. Suspect pulmonary source. Initiate zosyn IV for empiric pulmonary coverage. Lasix 40mg IV x 1 dose given in ED due to concern for fluid overload. Weight up 1 kg in 1 week. Monitor urinary output closely as well as daily weight. Given persistent leukocytosis with respiratory failure, will obtain blood cultures as well as sputum culture. Sputum culture on 12/24/17 revealed pseudomonas aeruginosa which was treated with Cefepime while inpatient and Levaquin as outpatient - course complete. Initial lactate 1.8. Troponin 0.079 and BNP 2370. Will monitor serial troponins and lactates. Will monitor closely on telemetry with continuous pulse oximetry. Supplemental oxygen as needed to maintain SAO2 >90%. Baseline on 4L NC at home. Will consult pulmonology given history of pulmonary fibrosis. Continue home prednisone 5mg daily. Initiate DuoNeb treatments as well as Pulmicort. Incentive spirometry. SCr elevated compared to baseline at 1.9. 1.99 on 01/06/18. Continue to monitor closely. Recheck labs in AM to monitor blood counts, electrolytes and renal function. Upon discharge, [facility] He requests to be a FULL CODE. Plan - 01/09/18: Continued increased oxygen demand, elevated renal function and Continued concern for SIRS/sepsis, though no infection identified. Suspect pulmonary source. Continue zosyn IV for empiric pulmonary coverage (day 2). Blood and sputum cultures pending. Slight increase in SCr to 2.0 (up from 1.9). Lasix 40mg IV x 1 dose given in ED prior to admission. Urinary output adequate. Continue to monitor urinary output closely. Hypernatremia with slight increase in Na to 148. Patient appears clinical dry. Will initiate NS 75cc/hr for gentle hydration. Sputum culture on 12/24/17 revealed pseudomonas aeruginosa which was treated with Cefepime while inpatient and Levaquin as outpatient - course complete. Initial lactate 1.8 - decreased to 1.6. Troponin 0.079, 0.089, 0.105, 0.106, 0.098. Will consult cardiology given recent CABG and persistent tachycardia. Will monitor closely on telemetry with continuous pulse oximetry. Supplemental oxygen as needed to maintain SAO2 >90%. Baseline on 4L NC at home. Wean as able. Continues to have increased oxygen demands. Will consult pulmonology given history of pulmonary fibrosis. Continue home prednisone 5mg daily. Initiate DuoNeb treatments as well as Pulmicort. Incentive spirometry. Continue respiratory cares. Recheck labs in AM to monitor blood counts, electrolytes and renal function. <Mina Riley - Last Filed: 01/15/18 15:58> Exam Vital signs: Temperature 96.5 F L 01/15/18 15:35 Pulse Rate 75 01/15/18 15:35 Respiratory Rate 22 01/15/18 15:35 Blood Pressure 97/65 01/15/18 15:35 Pulse Oximetry 95 01/15/18 15:35 Results 01/15/18 04:18 01/15/18 04:18 CBC 01/15/18 Range/Units 04:18 WBC 16.4 H (4.5-11.0) T/MM3 RBC 4.08 L (4.50-5.90) M/MM3 Hgb 11.9 L (13.5-17.5) GM/DL Hct 36.5 L (41-53) % Plt Count 232 (130-400) T/MM3 Comprehensive Metabolic Panel 01/15/18 Range/Units 04:18 Sodium 142 (134-144) MEQ/L Potassium 3.6 D (3.6-5) MEQ/L Chloride 92 L (98-107) MEQ/L Carbon Dioxide 40 H (22-30) MEQ/L BUN 54.0 H* (9-20) MG/DL Creatinine 2.5 H D (0.8-1.5) mg/dL Glucose 160 H (75-110) MG/DL Calcium 8.5 (8.4-10.2) MG/DL Albumin 3.3 L (3.5-5.0) g/dL Intake and Output 01/15/18 01/15/18 01/15/18 06:59 14:59 22:59 Intake Total 1000 / 1000 Output Total 1350 / 1350 800 / 800 Balance -1350 / -1350 200 / 200 Intake: IV 200 / 200 Piperacillin/Tazobactam 2.25 gm 200 / 200 In Ns 100 ml @ 200 mls/hr IV Q6H [facility] Rx#:[id number] Oral 800 / 800 Output: Urine 1350 / 1350 800 / 800 Other: Urine Appearance Clear Clear Urine Color Yellow Yellow Weight 100.7 kg Patient Weight 01/16/18 06:59 Weight 100.7 kg Assessment and Plan - Attestation Attestation Narrative: 01/15/18 15:58 Recommendation After examining the patient I agree with the above assessment. I am involved in the formulation of the patient's plan of care. - Assessment and Plan (1) Congestive heart failure Current visit: Yes Status: Chronic (2) Acute and chronic respiratory failure Current visit: Yes Status: Acute (3) Atherosclerotic heart disease of [place] coronary artery without angina pectoris Current visit: Yes Status: Chronic (4) CKD (chronic kidney disease) Current visit: Yes Status: Chronic (5) Mixed hyperlipidemia Current visit: Yes Status: Chronic Hospital Course Summary Disclaimer: The visit summary below is not to be considered part of the above Progress Note.
--- NOTE | 2018-01-09 13:08 | Pulmonology Consult Note ---
History of Present Illness Consult date: 01/09/18 Requesting physician: Olga Beaver Reason for consult: hypoxemia Chief complaint: low oxygen, breathing problems History of present illness: HPI: Jaime Villegas is a 77-year-old male patient of the [place] who [place] [facility] [place] [facility] [place], for evaluation of hypoxia. He states that his home health nurse noted that on his usual 4 lpm O2 his O2 sats were in the upper 70's to low 80's. He has seen a special programs director at the [place] in the past and has been on O2 for the past 4 months, but cannot tell me what his pulmonary diagnosis is. He state he has been on prednisone in the past but that he didn't benefit from that. He reports that on 12/20/17 he was admitted to [facility] in [place] and found to be having an acute STEMI. He subsequently underwent an emergent CABG x [address] Hawley on 12/20/17. He has a reported history of pulmonary fibrosis which complicated his respiratory status post-operatively. He was noted to have a leukocytosis but remained afebrile. He was treated with prednisone 10mg daily as well as IV Cefepime. Sputum culture on 12/24/17 revealed pseudomonas aeruginosa. He was discharged home on 12/29/17 on Levaquin as well as prednisone 5mg daily for continued pulmonary treatment. He also sustained an acute kidney injury with his SCr increasing to 1.84 post- operatively after receiving Bumex and metolazone. His reported baseline SCr is 1.3-1.6. Diuretics were held and he was given a slow bolus of IV fluids. His renal function slowly began trending down at time of discharge on 12/29/17 at 1.76. He reports that after returning home where he lives alone, he was doing well. He had follow-up labs done on 01/02/18 and was notified by his [place] [employer] that his SCr was elevated at 3. He was instructed to go to the emergency department. He presented [place] [facility] and was transferred to [facility] for continuation of care. Upon arrival to [facility], his weight was noted to be 100.6 kg (decreased from his weight of 106kg at time of CABG). His respiratory status was reportedly stable on his baseline 4L NC with no peripheral edema noted. Dr. Brandon, nephrology, was consulted and all nephrotoxic drugs were held including diuresis. Renal ultrasound was unremarkable. Pulmonary was consulted for further evaluation of his idiopathic pulmonary fibrosis and recommended continuation of prednisone 5mg daily with consideration of PFTs and sleep evaluation as an outpatient. He was treated with gentle hydration with slow improvement in his renal function, trending down to 1.99 on discharge from 3.06 on admission. At the time of discharge, he was recommended to consider SNU but he refused. He was discharged home with home health. Today, 01/08/18, he reports that his home health nurse was checking on him and reported that his oxygen saturation was low at 78% on 4L. He denies any increased shortness of breath, chest pain, abdominal pain, nausea, vomiting or dysuria. He does admit to having increased pedal edema though denies any cough , sputum production, dizziness or lightheadedness. He was brought to [facility] [place]. Upon arrival, he was requiring 10L high flow oxygen which was able to be decreased to 6L with a pulse ox of 91%. Labs were obtained and revealed persistent leukocytosis (WBC 13.7) which is decreased from prior labs at [facility]. Anemia (Hgb 12.3) also noted with hypernatremia (Na 147). SCr remains elevated from base line at 1.9 with BUN 33. Troponin wsa 0.079 and BNP was 2370. CXR was obtained and revealed stable abnormal appearance of chest with bilateral airspace disease. Given his acute on chronic respiratory failure with leukocytosis and hypernatremia, Dr. Beaver was consulted and he was admitted into observation status for further evaluation and treatment. While in the ED, he was given Lasix 40mg IV x 1 dose. Weight on admission was found to be 101kg (as compared to his prior weight on 01/03/18 at 100.6 kg). Review of Systems All systems PM: 10-point ROS was reviewed, no additional remarkable complaints except - Constitutional Constitutional: Absent: chills, fatigue, fever(s), weakness - EENMT Eyes: Absent: change in vision, photophobia Ears: Absent: ear pain Balance: Absent: falling to one side Nose: Absent: nosebleeds Mouth/Throat: Absent: pain, changes in swallowing, dry mouth - Cardiovascular Cardiovascular: Present: chest pain (secondary to recent surgery), dyspnea on exertion, edema. Absent: palpitations, syncope Rhythm: Present: regular rhythm Vascular: Present: pedal edema. Absent: pallor of an extermity, unilateral swelling - Respiratory Respiratory: Present: dyspnea, dyspnea on exertion. Absent: cough, hemoptysis, wheezing - Gastrointestinal Gastrointestinal: Absent: abdominal pain, diarrhea, melena, nausea, vomiting - Genitourinary Genitourinary: Absent: dysuria, flank pain, hematuria - Musculoskeletal Musculoskeletal: Absent: deformity, muscle weakness - Integumentary/Breasts Integumentary: Absent: rash - Neurological Neurological: Absent: dizziness, headache(s), vertigo, weakness - Psychiatric Psychiatric: Absent: anxiety, depression - Endocrine Endocrine: Absent: flushing, palpitations - Hematologic/Lymphatic Hematologic/Lymphatic: Present: easy bruising (recent treatment with heparin) - Allergic/Immunologic Allergic/Immunologic: Absent: seasonal rhinorrhea Past Medical History Medical History Updates: Chronic hypoxic respiratory failure. Supplemental home oxygen dependence at 4L NC. Idiopathic pulmonary fibrosis. Former tobaccoism. Obesity - BMI >30. CAD - CABG x 3 on 12/20/17. CHF - grade 1 diastolic dysfunction - EF 40-45%, mild MR/TR. Recent AMELIA - SCr increased to 3.06 on 01/02/18. Chronic kidney disease, stage 3 - baseline SCr 1.3-1.6. Hyperlipidemia. BPH. GERD. Surgical History: CABG x 3 - 12/20/17, Dr. Hawley. Tonsillectomy. Family History: Unable to obtain as patient is a poor historian. Possible family history of TB. Family History: As Above - Social History Smoking status: Former smoker (quit 1973) Packs per day: 1 Packs-years: 20 Substance use type: does not use Alcohol intake frequency: does not drink Housing: house Household members: none service: Yes Current occupational status: retired Does patient use chewing tobacco?: No Current residence: Apartment/Private Home Social history: PCP - Dr. Ankit Calderón ([facility] Nephro - Dr. Brandon. Cardio - Dr. Hawley. Pulm - Dr. Hi. Review of Systems All systems: reviewed and no additional remarkable complaints except as stated PFSH Patient Stated Medical History Coronary Artery Disease Yes Myocardial Infarction Yes Diabetes Mellitus Type 2 Yes Gastroesophageal Reflux Yes Disease Hx Benign Prostatic Yes Hyperplasia Depression Yes Medical History Updates: Chronic hypoxic respiratory failure. Supplemental home oxygen dependence at 4L NC. Idiopathic pulmonary fibrosis. Former tobaccoism. Obesity - BMI >30. CAD - CABG x 3 on 12/20/17. CHF - grade 1 diastolic dysfunction - EF 40-45%, mild MR/TR. Recent AMELIA - SCr increased to 3.06 on 01/02/18. Chronic kidney disease, stage 3 - baseline SCr 1.3-1.6. Hyperlipidemia. BPH. GERD. Surgical History: CABG x 3 - 12/20/17, Dr. Hawley. Tonsillectomy. - Social History Smoking status: Former smoker (quit 1973) Packs per day: 1 Packs-years: 20 Substance use type: does not use Alcohol intake frequency: does not drink Housing: house Household members: none service: Yes Current occupational status: retired Does patient use chewing tobacco?: No Current residence: Apartment/Private Home Medications Home Medications Medication Instructions Recorded Confirmed Type Aspirin [Adult Aspirin] 81 mg PO DAILY 01/02/18 01/08/18 History Atorvastatin [Lipitor] 40 mg PO DAILY 01/02/18 01/08/18 History Carvedilol 6.25 mg PO BID 01/02/18 01/08/18 History Finasteride [Proscar] 5 mg PO DAILY 01/02/18 01/08/18 History Multi-Vitamin Plain [Theragran] 1 tab PO DAILY 01/02/18 01/08/18 History PredniSONE [Deltasone 5 mg] 5 mg PO DAILY 01/02/18 01/08/18 History Allergies Allergy/AdvReac Type Severity Reaction Status Date / Time No Known Allergies Allergy Verified 01/08/18 12:48 Exam Vital signs: Temperature 99.3 F 01/09/18 12:00 Pulse Rate 89 01/09/18 12:00 Respiratory Rate 18 01/09/18 12:00 Blood Pressure 124/78 01/09/18 12:00 Pulse Oximetry 97 01/09/18 12:00 - Constitutional no acute distress - Routine HEENT Exam Head: Present: normocephalic Eye: Absent: conjunctival icterus ENT: Present: mucous membranes moist - Routine Neck Exam Present: supple, full ROM - Routine Respiratory Exam Present: rales. Absent: accessory muscle use Comments: bilateral rales on exam - Routine Cardiovascular Exam Present: RRR - Routine Abdominal Exam Present: soft Results - Laboratory Findings CBC and BMP: 01/09/18 04:41 01/09/18 04:41 Abnormal lab findings: Abnormal Labs 01/09/18 01/09/18 01/09/18 04:41 04:41 09:24 WBC 13.7 H RBC 4.00 L Hgb 11.8 L Hct 36.6 L MPV 8.4 L Neut % (Auto) 73.3 H Lymph % (Auto) 16.1 L Neut # (Auto) 10.1 H [place] # (Auto) 1.0 H Sodium 148 H Chloride 108 H BUN 30.0 H Creatinine 2.0 H Glucose 112 H Calculated Osmolality 291 H ALT 53 H Albumin 2.9 L Albumin/Globulin Ratio 0.8 L - Diagnostic Findings Chest x-ray: report reviewed, image reviewed Assessment and Plan - Assessment and Plan Acute on chronic hypoxemic respiratory failure pulmonary fibrosis, unclear etiology Pseudomonas pneumonia PLAN: 1. CT chest, high resolution 2. check sputum culture and start empiric antibiotics to cover MDR Pseudomonas 3. continue prednisone 5 mg daily 4. We will follow with you - Time Spent With Patient Total time spent is greater than 50% in coordination of care (as documented) at patient's floor/unit and/or counseling patient: 25 - 35 minutes
--- NOTE | 2018-01-09 17:50 | CT Scan Report ---
Indication: pulmonary fibrosis, pneumonia PROCEDURE: CT chest high res: Encounter: Initial Comparison: Chest x-ray dated January 09, 2018 Technique: Axial CT images were performed through the chest without intravenous contrast. Coronal and sagittal two-dimensional reformats. Automated Exposure Control and Iterative Reconstruction dose reducing techniques were utilized. Findings: Severe emphysema, fibrosis and honeycombing is seen in both lung apices with regions of cylindrical bronchiectasis in both lower lobes. No discrete lobar pneumonia is seen. There are scattered groundglass opacities with a basilar predominance, greater on the left side. No pleural fluid. No pneumothorax. The heart size is moderately enlarged without significant pericardial effusion. No axillary or mediastinal lymphadenopathy by CT size criteria. The upper abdomen shows no acute findings. Bone windows show no gross lytic or blastic lesions. Prior CABG. Impression: Severe emphysema and pulmonary fibrotic changes. This does not have the typical distribution for usual interstitial pneumonitis. Chronic hypersensitivity pneumonitis and drug reaction are within the differential. Superimposed acute pneumonia cannot be excluded given the lack of comparison studies. .
[2018-01-09] MEDS: PIPERACILLIN/TAZOBACTAM 2.25 GM in NS 100 ML IV SCH ×2 (18:40→22:24)
[2018-01-09] MEDS: ATORVASTATIN 40 MG TABLET PO SCH (20:10)
[2018-01-10] MEDS: ALBUTEROL/IPRATROPIUM 2.5mg-0.5mg/3ml NEB AEROSOL SCH ×6 (00:43→20:49)
[2018-01-10] MEDS: PIPERACILLIN/TAZOBACTAM 2.25 GM in NS 100 ML IV SCH ×4 (04:23→23:51)
[2018-01-10] MEDS ORDERED: LR 1,000 ML IV SCH (04:30)
[2018-01-10] MEDS: BUDESONIDE INH.SOLN 0.5mg/2ml NEB AEROSOL SCH ×2 (07:56→20:49)
[2018-01-10] MEDS: POLYETHYL GLYCOL 3350 17gm PACKET PO SCH (08:25)
[2018-01-10] MEDS: MULTI-VITAMIN PLAIN TABLET PO SCH (08:25)
[2018-01-10] MEDS: CARVEDILOL 6.25 MG TABLET PO SCH (08:25)
[2018-01-10] MEDS: FINASTERIDE 5 MG TABLET PO SCH (08:25)
[2018-01-10] MEDS: PredniSONE 5 MG TABLET PO SCH (08:25)
[2018-01-10] MEDS: ASPIRIN *EC* 81 MG TABLET PO SCH (08:25)
--- NOTE | 2018-01-10 10:01 | Pulmonology Progress Note ---
Subjective Interval history: Pt in bed, states he doesn't feel much better today. + SOB but no real cough or sputum at this time. Exam Vital signs: Temperature 98.7 F 01/10/18 07:00 Pulse Rate 114 H 01/10/18 07:00 Respiratory Rate 22 01/10/18 07:59 Blood Pressure 155/88 H 01/10/18 07:00 Pulse Oximetry 97 01/10/18 07:59 Inpatient Medications: Generic Name Dose Route Start Last Admin Trade Name Freq PRN Reason Stop Dose Admin Acetaminophen 650 mg 01/08/18 15:19 Tylenol PO Q5H PRN Discomfort Albuterol/Ipratropium 3 ml 01/08/18 20:00 01/10/18 07:56 Duoneb AEROSOL 3 ml Q4HR CRISTAL Administration Albuterol/Ipratropium 3 ml 01/08/18 16:36 Duoneb AEROSOL PRN PRN Aspirin 81 mg 01/09/18 09:00 01/10/18 08:25 Ecotrin PO 81 mg DAILY CRISTAL Administration Atorvastatin Calcium 40 mg 01/08/18 21:00 01/09/18 20:10 Lipitor PO 40 mg HS CRISTAL Administration Budesonide 0.5 mg 01/08/18 19:00 01/10/18 07:56 Pulmicort Inhalation AEROSOL 0.5 mg RTBID CRISTAL Administration Carvedilol 6.25 mg 01/08/18 17:30 01/10/18 08:25 Coreg PO 6.25 mg BIDWM CRISTAL Administration Finasteride 5 mg 01/09/18 09:00 01/10/18 08:25 Proscar PO 5 mg DAILY CRISTAL Administration Furosemide 40 mg 01/10/18 10:00 Lasix 40 Mg/4 Ml IVP Q12HR CRISTAL Piperacillin Sod/Tazobactam 100 mls @ 200 mls/hr 01/09/18 17:00 01/10/18 07: 09 Sod 2.25 gm/ Sodium Chloride IV Infused Q6H CRISTAL Infusion Lactated Ringer's 1,000 mls @ 100 mls/hr 01/10/18 04:30 01/10/18 04:25 Lactated Ringers IV 100 mls/hr .Q10H CRISTAL Administration Magnesium Hydroxide 30 ml 01/08/18 15:19 Mom PO DAILY PRN Constipation Morphine Sulfate 1 - 2 mg 01/08/18 15:19 01/10/18 04:48 Morphine Sulfate Inj IVP 2 mg Q2H PRN Administration Pain Multivitamins 1 tab 01/09/18 09:00 01/10/18 08:25 Theragran PO 1 tab DAILY CRISTAL Administration Ondansetron HCl 4 mg 01/08/18 15:19 Zofran IVP Q6H PRN Nausea &/or vomiting Polyethylene Glycol 17 gm 01/09/18 09:00 01/10/18 08:25 Miralax PO Not Given DAILY CRISTAL Prednisone 5 mg 01/09/18 08:00 01/10/18 08:25 Deltasone 5 Mg PO 5 mg WB CRISTAL Administration Senna/Docusate Sodium 1 tab 01/08/18 15:19 Senna Plus Tablet PO BID PRN Constipation Sodium Chloride 10 - 80 ml 01/08/18 12:27 01/08/18 18:49 Iv Flush IVF 10 ml PRN PRN Administration Flushing Sodium Chloride 500 ml 01/08/18 18:49 01/08/18 18:53 Normal Saline IV 500 ml PRN PRN Administration Discontinued Medications Generic Name Dose Route Start Last Admin Trade Name Freq PRN Reason Stop Dose Admin Furosemide 40 mg 01/08/18 12:33 01/08/18 13:04 Lasix 40 Mg/4 Ml IVP 01/08/18 12:34 40 mg O ONE Administration Piperacillin Sod/Tazobactam 100 mls @ 200 mls/hr 01/08/18 18:00 01/09/18 11: 34 Sod 3.375 gm/ Sodium Chloride IV Infused Q8H CRISTAL Infusion Sodium Chloride 1,000 mls @ 75 mls/hr 01/09/18 09:15 01/10/18 04:25 Normal Saline IV Infused .[id number] CRISTAL Infusion - Constitutional mild distress, obese, cooperative - Routine HEENT Exam Head: Present: normocephalic, atraumatic Eye: Present: EOMI, PERRL ENT: Present: mucous membranes moist - Routine Neck Exam Present: supple, full ROM, trachea midline - Routine Respiratory Exam Present: decreased breath sounds, crackles. Absent: patient mechanically ventilated - Routine Cardiovascular Exam Present: RRR, S1, S2, no murmur - Routine Abdominal Exam Present: soft, normoactive bowel sounds - Routine Extremities Exam Present: no edema, non tender, full ROM - Routine Back/Spine/Pelvis Exam Back/Spine: Present: full ROM - Routine Skin Exam Present: intact, dry - Routine Neurological Exam Present: alert, oriented X3, CN II-XII intact - Routine Psychiatric Exam Present: normal affect, normal thought process Results - Laboratory Findings Laboratory: Laboratory Results - last 48 hr 01/09/18 01/09/18 01/10/18 15:06 21:35 03:53 WBC 14.9 H RBC 3.79 L Hgb 11.3 L Hct 34.5 L MCV 91.0 MCH 29.8 MCHC 32.8 RDW Std Deviation 44.8 Plt Count 234 MPV 8.2 L Immature Gran % (Auto) 0.3 Neut % (Auto) 77.0 H Lymph % (Auto) 13.2 L [place] % (Auto) 7.0 Eos % (Auto) 2.4 Baso % (Auto) 0.1 Neut # (Auto) 11.5 H Lymph # (Auto) 2.0 [place] # (Auto) 1.0 H Eos # (Auto) 0.4 Baso # (Auto) 0.0 Abs Immat Gran (auto) 0.04 H Turbidity Sodium Potassium Chloride Carbon Dioxide Anion Gap BUN Creatinine GFR Calculation BUN/Creatinine Ratio Glucose Calculated Osmolality Calcium Total Bilirubin Icterus Index AST ALT Alkaline Phosphatase Troponin I 0.091 0.099 NT-Pro-B Natriuret Pep 4970 H Total Protein Albumin Globulin Albumin/Globulin Ratio Specimen Hemolysis < 15 < 15 01/10/18 03:53 WBC RBC Hgb Hct MCV MCH MCHC RDW Std Deviation Plt Count MPV Immature Gran % (Auto) Neut % (Auto) Lymph % (Auto) [place] % (Auto) Eos % (Auto) Baso % (Auto) Neut # (Auto) Lymph # (Auto) [place] # (Auto) Eos # (Auto) Baso # (Auto) Abs Immat Gran (auto) Turbidity < 20 Sodium 146 H Potassium 3.9 Chloride 110 H Carbon Dioxide 27 Anion Gap 9 BUN 23.0 H Creatinine 1.8 H D GFR Calculation 37 BUN/Creatinine Ratio 13 Glucose 114 H Calculated Osmolality 286 H Calcium 8.4 Total Bilirubin 1.30 Icterus Index < 2 AST 35 ALT 42 Alkaline Phosphatase 80 Troponin I NT-Pro-B Natriuret Pep Total Protein 6.4 Albumin 3.1 L Globulin 3.3 Albumin/Globulin Ratio 0.9 L Specimen Hemolysis < 15 - Diagnostic Findings CT scan - chest: image reviewed (HRCT with severe emphydsema, fibrosis and bronchiectasis noted in bases) Assessment and Plan - Assessment and Plan Acute on chronic hypoxemic respiratory failure pulmonary fibrosis, unclear etiology Pseudomonas pneumonia PLAN: Pt currently on 15L NRB, states his breathing hasn't changed much. Still on BT' s with a/a q4hr, pulmicort BID and prednisone 5mg daily. Previously with psa pna , currently on zosyn, WBC still elevated 13.7>14.9, afebrile, sputum stain with moderate WBC, and few GPC and GPR noted, await final culture, may benefit from adding vanco. Previous terminal gauger steroid use without benefit noted. Will add 3% saline and acapella to help with mucous clearance. - Time Spent With Patient Total time spent is greater than 50% in coordination of care (as documented) at patient's floor/unit and/or counseling patient: less than 15 minutes
[2018-01-10] MEDS ORDERED: VANCOMYCIN - PHARMACY CONSULT MC ONE (10:51)
[2018-01-10] MEDS: FUROSEMIDE 40 MG/4 ML INJECTION IVP SCH ×2 (11:24→21:15)
--- NOTE | 2018-01-10 13:05 | Pharmacy Consult-Antibiotics ---
Pharmacy Consult-Vancomycin - Laboratory Information WBC 14.9 T/MM3 (4.5-11.0) H 01/10/18 03:53 BUN 23.0 MG/DL (9-20) H 01/10/18 03:53 Creatinine 1.8 mg/dL (0.8-1.5) H D 01/10/18 03:53 Procalcitonin 0.08 NG/ML 01/08/18 17:07 - Consult Information Vancomycin consult noted by Dr Coleman for Mr Villegas, who is 77 years old and weighs 82.5kg. His serum creatinine is 1.8 mg/dl. He has a diagnosis of pneumonia. Will give a vancomycin loading dose of 1500mg followed by vancomycin 1250mg q24h. Thank you.
--- NOTE | 2018-01-10 13:15 | Cardiology Progress Note ---
<Chely Cano M - Last Filed: 01/10/18 19:21> Subjective Principal diagnosis: SOA, CHF Interval history: Jaime is seen in follow up for SOA and DCHF. He is in bed on Bi-Pap, his son is at he bedside. He denies chest pain or pressure, falls asleep during exam. Exam Vital signs: Temperature 99.0 F 01/10/18 12:29 Pulse Rate 109 H 01/10/18 12:29 Respiratory Rate 24 01/10/18 12:29 Blood Pressure 117/77 01/10/18 12:29 Pulse Oximetry 91 01/10/18 12:36 Inpatient Medications: Generic Name Dose Route Start Last Admin Trade Name Freq PRN Reason Stop Dose Admin Acetaminophen 650 mg 01/08/18 15:19 Tylenol PO Q5H PRN Discomfort Albuterol/Ipratropium 3 ml 01/08/18 20:00 01/10/18 11:49 Duoneb AEROSOL 3 ml Q4HR C[facility]STAL Administration Albuterol/Ipratropium 3 ml 01/08/18 16:36 Duoneb AEROSOL PRN PRN Aspirin 81 mg 01/09/18 09:00 01/10/18 08:25 Ecotrin PO 81 mg DAILY CRISTAL Administration Atorvastatin Calcium 40 mg 01/08/18 21:00 01/09/18 20:10 Lipitor PO 40 mg HS CRISTAL Administration Budesonide 0.5 mg 01/08/18 19:00 01/10/18 07:56 Pulmicort Inhalation AEROSOL 0.5 mg RTBID CRISTAL Administration Carvedilol 6.25 mg 01/08/18 17:30 01/10/18 08:25 Coreg PO 6.25 mg BIDWM CRISTAL Administration Finasteride 5 mg 01/09/18 09:00 01/10/18 08:25 Proscar PO 5 mg DAILY C[facility]STAL Administration Furosemide 40 mg 01/10/18 10:00 01/10/18 11:24 Lasix 40 Mg/4 Ml IVP 40 mg Q12HR C[facility]STAL Administration Piperacillin Sod/Tazobactam 100 mls @ 200 mls/hr 01/09/18 17:00 01/10/18 12: 04 Sod 2.25 gm/ Sodium Chloride IV Infused Q6H C[facility]STAL Infusion Lactated Ringer's 1,000 mls @ 100 mls/hr 01/10/18 04:30 01/10/18 12:04 Lactated Ringers IV 100 mls/hr .Q10H C[facility]AL Infusion Vancomycin HCl 1,500 mg/ 500 mls @ 250 mls/hr 01/10/18 13:00 Sodium Chloride IV 01/10/18 14:59 O ONE Vancomycin HCl 1,250 mg/ 250 mls @ 200 mls/hr 01/11/18 13:00 Sodium Chloride IV 1300 CRISTAL Magnesium Hydroxide 30 ml 01/08/18 15:19 Mom PO DAILY PRN Constipation Morphine Sulfate 1 - 2 mg 01/08/18 15:19 01/10/18 04:48 Morphine Sulfate Inj IVP 2 mg Q2H PRN Administration Pain Multivitamins 1 tab 01/09/18 09:00 01/10/18 08:25 Theragran PO 1 tab DAILY C[facility]STAL Administration Ondansetron HCl 4 mg 01/08/18 15:19 Zofran IVP Q6H PRN Nausea &/or vomiting Polyethylene Glycol 17 gm 01/09/18 09:00 01/10/18 08:25 Miralax PO Not Given DAILY C[facility]AL Prednisone 5 mg 01/09/18 08:00 01/10/18 08:25 Deltasone 5 Mg PO 5 mg WB CRISTAL Administration Senna/Docusate Sodium 1 tab 01/08/18 15:19 Senna Plus Tablet PO BID PRN Constipation Sodium Chloride 10 - 80 ml 01/08/18 12:27 01/08/18 18:49 Iv Flush IVF 10 ml PRN PRN Administration Flushing Sodium Chloride 500 ml 01/08/18 18:49 01/08/18 18:53 Normal Saline IV 500 ml PRN PRN Administration Sodium Chloride 4 ml 01/10/18 17:00 Hyper-Brant AEROSOL Q8HR [facility] Discontinued Medications Generic Name Dose Route Start Last Admin Trade Name Freq PRN Reason Stop Dose Admin Furosemide 40 mg 01/08/18 12:33 01/08/18 13:04 Lasix 40 Mg/4 Ml IVP 01/08/18 12:34 40 mg O ONE Administration Piperacillin Sod/Tazobactam 100 mls @ 200 mls/hr 01/08/18 18:00 01/09/18 11: 34 Sod 3.375 gm/ Sodium Chloride IV Infused Q8H CRISTAL Infusion Sodium Chloride 1,000 mls @ 75 mls/hr 01/09/18 09:15 01/10/18 04:25 Normal Saline IV Infused .[id number] CRISTAL Infusion Vancomycin HCl 1 each 01/10/18 10:51 01/10/18 11:33 Pharmacy Consult - Vancomycin 01/10/18 10:52 Not Given O ONE - Constitutional no acute distress, well nourished, cooperative - Routine HEENT Exam Head: Present: normocephalic ENT: Present: mucous membranes dry - Routine Neck Exam Absent: JVD, carotid bruit - Routine Chest/Breast/Axilla Exam Chest wall: Absent: tenderness - Routine Respiratory Exam Present: diminished air movement. Absent: dyspnea - Routine Cardiovascular Exam Present: RRR, tachycardia - Routine Abdominal Exam Present: soft, non tender - Routine Extremities Exam Present: edema - Routine Skin Exam Present: intact, dry, warm - Routine Neurological Exam Present: alert, oriented X3 - Routine Psychiatric Exam Present: normal affect, normal thought process Results 01/10/18 03:53 01/10/18 03:53 Cardiac Enzymes 01/09/18 01/09/18 01/10/18 Range/Units 15:06 21:35 03:53 AST 35 (17-59) U/L Troponin I 0.091 0.099 (0-0.12) ng/ml CBC 01/10/18 Range/Units 03:53 WBC 14.9 H (4.5-11.0) T/MM3 RBC 3.79 L (4.50-5.90) M/MM3 Hgb 11.3 L (13.5-17.5) GM/DL Hct 34.5 L (41-53) % Plt Count 234 (130-400) T/MM3 Neut # (Auto) 11.5 H (1.8-7.7) T/MM3 Lymph # (Auto) 2.0 (1-4.8) T/MM3 [place] # (Auto) 1.0 H (0-0.8) T/MM3 Eos # (Auto) 0.4 (0-0.5) T/MM3 Baso # (Auto) 0.0 (0-0.2) T/MM3 Comprehensive Metabolic Panel 01/10/18 Range/Units 03:53 Sodium 146 H (134-144) MEQ/L Potassium 3.9 (3.6-5) MEQ/L Chloride 110 H (98-107) MEQ/L Carbon Dioxide 27 (22-30) MEQ/L BUN 23.0 H (9-20) MG/DL Creatinine 1.8 H D (0.8-1.5) mg/dL Glucose 114 H (75-110) MG/DL Calcium 8.4 (8.4-10.2) MG/DL AST 35 (17-59) U/L ALT 42 (1-50) U/L Alkaline Phosphatase 80 (38-126) U/L Total Protein 6.4 (6.3-8.2) g/dL Albumin 3.1 L (3.5-5.0) g/dL Intake and Output 01/09/18 01/10/18 01/10/18 22:59 06:59 14:59 Intake Total 1596.25 / 1596.25 504.167 / 504.167 895.000 / 895.000 Output Total 600 / 600 300 / 300 900 / 900 Balance 996.25 / 996.25 204.167 / 204.167 -5.000 / -5.000 Intake: IV 956.25 / 956.25 504.167 / 504.167 895.000 / 895.000 Lr 1,000 ml @ 100 mls/hr IV . 701.667 / 701.667 Q10H C[facility]STAL Rx#:[id number] Ns 1,000 ml @ 75 mls/hr IV . 856.25 / 856.25 397.5 / 397.5 [id number] CRISTAL Rx#:[id number] Piperacillin/Tazobactam 2.25 gm 100 / 100 106.667 / 106.667 193.333 / 193.333 In Ns 100 ml @ 200 mls/hr IV Q6H CRISTAL Rx#:[id number] Oral 640 / 640 Output: Urine 600 / 600 300 / 300 900 / 900 Other: Urine Appearance Clear Urine Color Yellow Urine Odor Normal Weight 181 lb 14.102 oz Patient Weight 01/11/18 06:59 Weight 181 lb 14.102 oz - Imaging and Cardiology Imaging & Cardiology Narrative: Date of Exam: 01/09/18 Type of Exam(s): US echo doppler complete DATE OF PROCEDURE January 09, 2018 REFERRING PHYSICIAN Olga Beaver MD This is a two-dimensional echo with spectral Doppler, color-flow and M-mode. It was obtained in a patient with congestive heart failure. Left atrial dimension is normal. Left ventricle end-diastolic dimension is normal. Left ventricle wall thickness is increased. Inferior wall appears to be akinetic with ejection fraction of about 45%. Right atrium is normal. Right ventricle is normal. Aortic root dimension is normal. Mitral valve annulus is calcified. Mitral valve leaflets are normal with mild mitral regurgitation. Aortic valve shows fibrocalcific changes with no stenosis. Mild aortic insufficiency is present. Tricuspid valve shows mild tricuspid regurgitation with moderate to severe pulmonary hypertension with estimated pulmonary artery systolic pressure of 65. Pulmonary valve shows mild pulmonary insufficiency. There is no pericardial effusion. IMPRESSION 1. Inferior akinesia with ejection fraction of about 45%. 2. Concentric left ventricular hypertrophy. 3. Mitral annulus calcification with mild mitral regurgitation. 4. Aortic sclerosis with mild aortic insufficiency. 5. Mild tricuspid regurgitation with moderate to severe pulmonary hypertension with estimated pulmonary artery systolic pressure of 65. 6. Mild pulmonary insufficiency. 01/10/18 14:52 01/10/18 14:53 Date of Exam: 01/09/18 Ordering Provider: Tito Drummond MD Type of Exam(s): CT chest high res Reason for Exam(s): pulmonary fibrosis, pneumonia Indication: pulmonary fibrosis, pneumonia PROCEDURE: CT chest high res: Encounter: Initial Comparison: Chest x-ray dated January 09, 2018 Technique: Axial CT images were performed through the chest without intravenous contrast. Coronal and sagittal two-dimensional reformats. Automated Exposure Control and Iterative Reconstruction dose reducing techniques were utilized. Findings: Severe emphysema, fibrosis and honeycombing is seen in both lung apices with regions of cylindrical bronchiectasis in both lower lobes. No discrete lobar pneumonia is seen. There are scattered groundglass opacities with a basilar predominance, greater on the left side. No pleural fluid. No pneumothorax. The heart size is moderately enlarged without significant pericardial effusion. No axillary or mediastinal lymphadenopathy by CT size criteria. The upper abdomen shows no acute findings. Bone windows show no gross lytic or blastic lesions. Prior CABG. Impression: Severe emphysema and pulmonary fibrotic changes. This does not have the typical distribution for usual interstitial pneumonitis. Chronic hypersensitivity pneumonitis and drug reaction are within the differential. Superimposed acute pneumonia cannot be excluded given the lack of comparison studies. . Assessment and Plan - Assessment and Plan (1) Acute and chronic respiratory failure Current visit: Yes Status: Acute (2) Atherosclerotic heart disease of [place] coronary artery without angina pectoris Current visit: Yes Status: Chronic (3) Congestive heart failure Current visit: Yes Status: Chronic (4) CKD (chronic kidney disease) Current visit: Yes Status: Chronic (5) Mixed hyperlipidemia Current visit: Yes Status: Chronic - Assessment and Plan 01/09/18 Acute on chronic Respiratory failure: On chronic O2 4L at home - currently on high flow NC at 11L. 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 Dr. Reena Dean -On aspirin, statin and BB - serial troponin negative CHF - grade 1 diastolic dysfunction - EF 40-45%, mild MR/TR. - Repeat 2 D echo - BNP CKD: Recent AMELIA - SCr increased to 3.06 on 01/02/18. - stage 3 - baseline SCr 1.3-1.6. -Follow renal function HLD: -On Atorvastatin Thank you for allowing us to participate in the care of this patient. 01/10/18 CHF: EF 45% on echo - PAP 65mmHg - Lasix 40mg IV q12h for diuresis - Monitor renal and electrolytes - Increase Coreg for better HR Hospital Course Summary Disclaimer: The visit summary below is not to be considered part of the above Progress Note. Hospital Course: Plan - 01/08/18: Patient admitted to observation status under the care of Dr. Beaver. Concern for SIRS/sepsis, though no infection identified. Suspect pulmonary source. Initiate zosyn IV for empiric pulmonary coverage. Lasix 40mg IV x 1 dose given in ED due to concern for fluid overload. Weight up 1 kg in 1 week. Monitor urinary output closely as well as daily weight. Given persistent leukocytosis with respiratory failure, will obtain blood cultures as well as sputum culture. Sputum culture on 12/24/17 revealed pseudomonas aeruginosa which was treated with Cefepime while inpatient and Levaquin as outpatient - course complete. Initial lactate 1.8. Troponin 0.079 and BNP 2370. Will monitor serial troponins and lactates. Will monitor closely on telemetry with continuous pulse oximetry. Supplemental oxygen as needed to maintain SAO2 >90%. Baseline on 4L NC at home. Will consult pulmonology given history of pulmonary fibrosis. Continue home prednisone 5mg daily. Initiate DuoNeb treatments as well as Pulmicort. Incentive spirometry. SCr elevated compared to baseline at 1.9. 1.99 on 01/06/18. Continue to monitor closely. Recheck labs in AM to monitor blood counts, electrolytes and renal function. Upon discharge, his care will be returned to his PCP at the [place]. He requests to be a FULL CODE. Plan - 01/09/18: Continued increased oxygen demand, elevated renal function and Continued concern for SIRS/sepsis, though no infection identified. Suspect pulmonary source. Continue zosyn IV for empiric pulmonary coverage (day 2). Blood and sputum cultures pending. Slight increase in SCr to 2.0 (up from 1.9). Lasix 40mg IV x 1 dose given in ED prior to admission. Urinary output adequate. Continue to monitor urinary output closely. Hypernatremia with slight increase in Na to 148. Patient appears clinical dry. Will initiate NS 75cc/hr for gentle hydration. Sputum culture on 12/24/17 revealed pseudomonas aeruginosa which was treated with Cefepime while inpatient and Levaquin as outpatient - course complete. Initial lactate 1.8 - decreased to 1.6. Troponin 0.079, 0.089, 0.105, 0.106, 0.098. Will consult cardiology given recent CABG and persistent tachycardia. Will monitor closely on telemetry with continuous pulse oximetry. Supplemental oxygen as needed to maintain SAO2 >90%. Baseline on 4L NC at home. Wean as able. Continues to have increased oxygen demands. Will consult pulmonology given history of pulmonary fibrosis. Continue home prednisone 5mg daily. Initiate DuoNeb treatments as well as Pulmicort. Incentive spirometry. Continue respiratory cares. Recheck labs in AM to monitor blood counts, electrolytes and renal function. <Mina Riley - Last Filed: 01/16/18 13:28> Exam Vital signs: Temperature 98.0 F 01/16/18 12:00 Pulse Rate 80 01/16/18 12:00 Respiratory Rate 16 01/16/18 12:00 Blood Pressure 100/64 01/16/18 12:00 Pulse Oximetry 92 01/16/18 12:00 Inpatient Medications: Generic Name Dose Route Start Last Admin Trade Name Freq PRN Reason Stop Dose Admin Acetaminophen 650 mg 01/08/18 15:19 Tylenol PO Q5H PRN Discomfort Albuterol/Ipratropium 3 ml 01/08/18 16:36 01/11/18 08:18 Duoneb AEROSOL 3 ml PRN PRN Administration Aspirin 81 mg 01/09/18 09:00 01/16/18 09:32 Ecotrin PO 81 mg DAILY CRISTAL Administration Atorvastatin Calcium 40 mg 01/08/18 21:00 01/15/18 20:46 Lipitor PO 40 mg HS CRISTAL Administration Carvedilol 25 mg 01/11/18 17:30 01/16/18 09:31 Coreg PO 25 mg BIDWM CRISTAL Administration Finasteride 5 mg 01/09/18 09:00 01/16/18 09:31 Proscar PO 5 mg DAILY CRISTAL Administration Furosemide 40 mg 01/16/18 09:00 01/16/18 09:31 Lasix 40 Mg/4 Ml IVP 40 mg DAILY CRISTAL Administration Lorazepam 0.5 mg 01/11/18 16:40 Ativan Inj IVP Q4H PRN Anxiety/Air hunger/Agitation Magnesium Hydroxide 30 ml 01/08/18 15:19 Mom PO DAILY PRN Constipation Multivitamins 1 tab 01/09/18 09:00 01/16/18 09:32 Theragran PO 1 tab DAILY [facility] Administration Ondansetron HCl 4 mg 01/08/18 15:19 Zofran IVP Q6H PRN Nausea &/or vomiting Polyethylene Glycol 17 gm 01/09/18 09:00 01/16/18 09:32 Miralax PO 17 gm DAILY CRISTAL Administration Prednisone 40 mg 01/15/18 10:45 01/16/18 09:31 Deltasone 20 Mg PO 40 mg WB CRISTAL Administration Senna/Docusate Sodium 1 tab 01/08/18 15:19 01/11/18 10:12 Senna Plus Tablet PO 1 tab BID PRN Administration Constipation Sodium Chloride 10 - 80 ml 01/08/18 12:27 01/13/18 13:32 Iv Flush IVF 30 ml PRN PRN Administration Flushing Sodium Chloride 500 ml 01/08/18 18:49 01/13/18 11:57 Normal Saline IV 500 ml PRN PRN Administration Sodium Chloride 2 spray 01/12/18 17:05 01/16/18 13:24 [place] Nasal Moisturizing [place] EA NOSTRIL Not Given QID CRISTAL Discontinued Medications Generic Name Dose Route Start Last Admin Trade Name Freq PRN Reason Stop Dose Admin Albuterol/Ipratropium 3 ml 01/08/18 20:00 01/15/18 08:24 Duoneb AEROSOL 3 ml Q4HR CRISTAL Administration Albuterol/Ipratropium 3 ml 01/15/18 13:00 01/16/18 11:35 Duoneb AEROSOL 3 ml QID CRISTAL Administration Budesonide 0.5 mg 01/08/18 19:00 01/16/18 07:15 Pulmicort Inhalation AEROSOL 0.5 mg RTBID CRISTAL Administration Carvedilol 6.25 mg 01/08/18 17:30 01/10/18 08:25 Coreg PO 6.25 mg BIDWM CRISTAL Administration Carvedilol 12.5 mg 01/10/18 13:46 01/11/18 10:12 Coreg PO 12.5 mg BIDWM CRISTAL Administration Furosemide 40 mg 01/08/18 12:33 01/08/18 13:04 Lasix 40 Mg/4 Ml IVP 01/08/18 12:34 40 mg O ONE Administration Furosemide 40 mg 01/10/18 10:00 01/11/18 10:11 Lasix 40 Mg/4 Ml IVP 40 mg Q12HR CRISTAL Administration Furosemide 40 mg 01/12/18 09:00 01/12/18 16:15 Lasix 40 Mg Tab PO 40 mg 0900,1700 CRISTAL Administration Furosemide 80 mg 01/12/18 17:15 01/13/18 01:54 Lasix 40 Mg Tab PO 80 mg Q8H CRISTAL Administration Furosemide 80 mg 01/13/18 09:00 01/14/18 10:29 Lasix 100 Mg/10 Ml IVP 80 mg Q8HR CRISTAL Administration Furosemide 40 mg 01/14/18 21:00 01/14/18 23:05 Lasix 40 Mg/4 Ml IVP 40 mg Q12HR CRISTAL Administration Piperacillin Sod/Tazobactam 100 mls @ 200 mls/hr 01/08/18 18:00 01/09/18 11: 34 Sod 3.375 gm/ Sodium Chloride IV Infused Q8H C[facility]STAL Infusion Sodium Chloride 1,000 mls @ 75 mls/hr 01/09/18 09:15 01/10/18 04:25 Normal Saline IV Infused .[id number] C[facility]STAL Infusion Piperacillin Sod/Tazobactam 100 mls @ 200 mls/hr 01/09/18 17:00 01/16/18 11: 55 Sod 2.25 gm/ Sodium Chloride IV Infused Q6H C[facility]STAL Infusion Lactated Ringer's 1,000 mls @ 100 mls/hr 01/10/18 04:30 01/10/18 14:14 Lactated Ringers IV Infused .Q10H [facility]STAL Infusion Vancomycin HCl 1,500 mg/ 500 mls @ 250 mls/hr 01/10/18 13:00 01/10/18 16:00 Sodium Chloride IV 01/10/18 14:59 Infused O ONE Infusion Vancomycin HCl 1,250 mg/ 250 mls @ 200 mls/hr 01/11/18 13:00 01/13/18 14:12 Sodium Chloride IV Not Given 1300 CRISTAL Vancomycin HCl 1,750 mg/ 500 mls @ 250 mls/hr 01/13/18 13:00 01/14/18 17:12 Sodium Chloride IV Infused Q24HR [facility]AL Infusion Vancomycin HCl 1,000 mg/ 250 mls @ 250 mls/hr 01/16/18 06:00 01/16/18 07:00 Sodium Chloride IV Infused Q24H [facility] Infusion Metolazone 5 mg 01/13/18 09:00 01/14/18 11:54 Zaroxolyn PO Not Given DAILY C[facility]STAL Morphine Sulfate 1 - 2 mg 01/08/18 15:19 01/10/18 04:48 Morphine Sulfate Inj IVP 2 mg Q2H PRN Administration Pain Potassium Chloride 20 meq 01/14/18 06:03 01/14/18 06:09 K-Dur 20 Meq Tablet PO 20 meq BIDWM CRISTAL Administration Potassium Chloride 40 meq 01/14/18 11:45 01/14/18 23:02 K-Dur 20 Meq Tablet PO 01/14/18 19:46 40 meq Q4H CRISTAL Administration Prednisone 5 mg 01/09/18 08:00 01/11/18 10:12 Deltasone 5 Mg PO 5 mg WB CRISTAL Administration Prednisone 50 mg 01/11/18 16:45 01/13/18 09:42 Deltasone 50 Mg PO 50 mg DAILY CRISTAL Administration Prednisone 50 mg 01/14/18 08:00 01/15/18 11:02 Deltasone 50 Mg PO 01/16/18 08:00 Not Given WB CRISTAL Sodium Chloride 4 ml 01/10/18 17:00 01/12/18 10:06 Hyper-Brant AEROSOL Not Given Q8HR [facility] Sodium Chloride 3 ml 01/11/18 10:00 01/16/18 12:59 Sodium Chloride 3% Inhal AEROSOL Not Given Q8HR [facility] Vancomycin HCl 1 each 01/10/18 10:51 01/10/18 11:33 Pharmacy Consult - Vancomycin MC 01/10/18 10:52 Not Given O ONE Results 01/16/18 05:10 01/16/18 05:11 CBC 01/16/18 Range/Units 05:10 WBC 17.0 H (4.5-11.0) T/MM3 RBC 4.04 L (4.50-5.90) M/MM3 Hgb 11.6 L (13.5-17.5) GM/DL Hct 36.5 L (41-53) % Plt Count 207 (130-400) T/MM3 Neut # (Auto) Not performed Lymph # (Auto) Not performed [place] # (Auto) Not performed Eos # (Auto) Not performed Baso # (Auto) Not performed Comprehensive Metabolic Panel 01/16/18 Range/Units 05:11 Sodium 140 (134-144) MEQ/L Potassium 3.5 L (3.6-5) MEQ/L Chloride 91 L (98-107) MEQ/L Carbon Dioxide 40 H (22-30) MEQ/L BUN 57.0 H* (9-20) MG/DL Creatinine 2.4 H (0.8-1.5) mg/dL Glucose 168 H (75-110) MG/DL Calcium 8.6 (8.4-10.2) MG/DL Intake and Output 01/15/18 01/16/18 01/16/18 22:59 06:59 14:59 Intake Total 400 / 400 100 / 100 1268 / 1268 Output Total 300 / 300 480 / 480 500 / 500 Balance 100 / 100 -380 / -380 768 / 768 Intake: IV 100 / 100 100 / 100 350 / 350 Piperacillin/Tazobactam 2.25 gm 100 / 100 100 / 100 100 / 100 In Ns 100 ml @ 200 mls/hr IV Q6H [facility] Rx#:[id number] Vancomycin 1,000 mg In NS 250ml 250 / 250 250 ml @ 250 mls/hr IV Q24H C[facility]AL Rx#:[id number] Oral 300 / 300 918 / 918 Output: Urine 300 / 300 480 / 480 500 / 500 Other: Urine Appearance Clear Clear Clear Urine Color Yellow Yellow Yellow Urine Odor Normal Normal Stool Color Brown Stool Consistency Soft Formed Size of Bowel Movement Moderate # Voids 1 Weight 100.5 kg Patient Weight 01/17/18 06:59 Weight 100.5 kg Assessment and Plan - Assessment and Plan (1) Congestive heart failure Current visit: Yes Status: Chronic (2) Acute and chronic respiratory failure Current visit: Yes Status: Acute (3) Atherosclerotic heart disease of [place] coronary artery without angina pectoris Current visit: Yes Status: Chronic (4) CKD (chronic kidney disease) Current visit: Yes Status: Chronic (5) Mixed hyperlipidemia Current visit: Yes Status: Chronic - Attestation Attestation Narrative: 01/16/18 13:28 Recommendation After examining the patient I agree with the above assessment. I am involved in the formulation of the patient's plan of care. Hospital Course Summary Disclaimer: The visit summary below is not to be considered part of the above Progress Note.
--- NOTE | 2018-01-10 13:27 | Echocardiogram ---
DATE OF PROCEDURE January 09, 2018 REFERRING PHYSICIAN Olga Beaver MD This is a two-dimensional echo with spectral Doppler, color-flow and M-mode. It was obtained in a patient with congestive heart failure. Left atrial dimension is normal. Left ventricle end-diastolic dimension is normal. Left ventricle wall thickness is increased. Inferior wall appears to be akinetic with ejection fraction of about 45%. Right atrium is normal. Right ventricle is normal. Aortic root dimension is normal. Mitral valve annulus is calcified. Mitral valve leaflets are normal with mild mitral regurgitation. Aortic valve shows fibrocalcific changes with no stenosis. Mild aortic insufficiency is present. Tricuspid valve shows mild tricuspid regurgitation with moderate to severe pulmonary hypertension with estimated pulmonary artery systolic pressure of 65. Pulmonary valve shows mild pulmonary insufficiency. There is no pericardial effusion. IMPRESSION 1. Inferior akinesia with ejection fraction of about 45%. 2. Concentric left ventricular hypertrophy. 3. Mitral annulus calcification with mild mitral regurgitation. 4. Aortic sclerosis with mild aortic insufficiency. 5. Mild tricuspid regurgitation with moderate to severe pulmonary hypertension with estimated pulmonary artery systolic pressure of 65. 6. Mild pulmonary insufficiency. MTDD
--- NOTE | 2018-01-10 13:55 | Progress Note ---
- Date 01/10/18 Subjective: Jaime is seen today in follow up. He is currently on Bi-pap as he feels less respiratory distress. Denies having chest pain or GI complaints. Urinating without difficulty. Weight is noted to be significantly down today (reported-46 lbs) suspect this is not accurate. Appetite is good. Objective Vital signs: Temperature 99.0 F 01/10/18 12:29 Pulse Rate 109 H 01/10/18 12:29 Respiratory Rate 24 01/10/18 12:29 Blood Pressure 117/77 01/10/18 12:29 Pulse Oximetry 91 01/10/18 12:36 Rhythm: Sinus Tachycardia Height/Weight/BMI: Weight 82.5 kg - Constitutional Present: mild distress, well nourished, well developed - Routine HEENT Exam Eye: Present: EOMI ENT: Present: mucous membranes moist, dentition normal - Routine Respiratory Exam Present: diminished air movement. Absent: wheezes - Routine Cardiovascular Exam Present: RRR, S1, S2. Absent: murmur - Routine Abdominal Exam Present: soft, normoactive bowel sounds, non distended. Absent: tenderness - Routine Extremities Exam Present: normal capillary refill - Routine Skin Exam Present: intact, dry, warm - Routine Neurological Exam Present: alert, oriented X3, CN II-XII intact - Routine Lymphatic Exam Lymphatic: Absent: adenopathy - Routine Psychiatric Exam Present: normal affect, cooperative Results - Labs CBC & Chem 7: 01/10/18 03:53 01/10/18 03:53 Microbiology Results: Microbiology 01/09/18 23:25 Sputum, Expectorated Gram Stain - Final 01/09/18 23:25 Sputum, Expectorated Sputum Culture - Preliminary Culture Initiated - Results Pending Assessment and Plan Assessment and Plan: Assessment: Acute medical conditions present on admission: Pneumonia Acute on chronic hypoxic and hypercapnic respiratory failure. Leukocytosis (WBC 13.7). Anemia (Hgb 12.3). Hypernatremia (Na 147). Chronic medical conditions: Supplemental home oxygen dependence at 4L NC. Idiopathic pulmonary fibrosis. Former tobaccoism. CAD - CABG x 3 on 12/20/17. CHF - grade 1 diastolic dysfunction - EF 40-45%, mild MR/TR. Recent AMELIA - SCr increased to 3.06 on 01/02/18. Chronic kidney disease, stage 3 - baseline SCr 1.3-1.6. Hyperlipidemia. BPH. GERD. Obesity - BMI >30. Plan Bi-pap started due to increased labored breathing Continue with scheduled Lasix for diuresis Asked nursing to re-weigh given reported 46lb loss today- suspect error Continue to monitor renal function and electrolytes. Framing Manager decreased to 1.8 today Continues Zosyn, adding IV Vancomycin for pulmonary coverage Sputum culture on 12/24/17 revealed pseudomonas aeruginosa which was treated with Cefepime while inpatient and Levaquin as outpatient - course complete. Continues on chronic home dose of Prednisone Appreciate consultations by Dr. Drummond and Dr. Riley. DVT Prophylaxis: SCD's Resuscitation Status: Full Code - Physician Narrative Physician: Remigio Coleman MD Narrative: Date: 01/10/18 Time: 1605 Have independently interviewed and examined pt. Chart reviewed. Case discussed with patient's sons and my PORTAL ADMINISTRATOR. Care plan developed with my supervision; agree with above. Rough morning - increasing work of breathing. O2 titrated up and still hard for him to maintain. BiPAP added. Notes some cough, but little congestion. No pain with breathing. Not having nausea or ab pain. Appetite fair. No pain or discomfort with urination. Lungs: decreased breath sounds, upper airway noises CV: tachy, regular AB: soft nt/nd +BS MSE: awake alert appropriate. Plan: Bipap to help decrease work of breathing. Add Vanco for expanded pulm coverage. Cardiology increased Coreg to 12.5mg BID and started Lasix 40mg IV BID. Monitor lab. Hospital Course Summary Disclaimer: The visit summary below is not to be considered part of the above Progress Note. Hospital Course: 01/08/18 OBS Patient admitted to observation status under the care of Dr. Beaver. Concern for SIRS/sepsis, though no infection identified. Suspect pulmonary source. Initiate zosyn IV for empiric pulmonary coverage. Lasix 40mg IV x 1 dose given in ED due to concern for fluid overload. Weight up 1 kg in 1 week. Monitor urinary output closely as well as daily weight. Given persistent leukocytosis with respiratory failure, will obtain blood cultures as well as sputum culture. Sputum culture on 12/24/17 revealed pseudomonas aeruginosa which was treated with Cefepime while inpatient and Levaquin as outpatient - course complete. Initial lactate 1.8. Troponin 0.079 and BNP 2370. Will monitor serial troponins and lactates. Will monitor closely on telemetry with continuous pulse oximetry. Supplemental oxygen as needed to maintain SAO2 >90%. Baseline on 4L NC at home. Will consult pulmonology given history of pulmonary fibrosis. Continue home prednisone 5mg daily. Initiate DuoNeb treatments as well as Pulmicort. Incentive spirometry. SCr elevated compared to baseline at 1.9. 1.99 on 01/06/18. Continue to monitor closely. Recheck labs in AM to monitor blood counts, electrolytes and renal function. Upon discharge, his care will be returned to his PCP at the [place]. He requests to be a FULL CODE. 01/09/18 With continued increased need for oxygen above and beyond baseline, coupled with pneumonia, will change admission status to inpatient. Continued increased oxygen demand, elevated renal function and white blood count. Suspect pulmonary source - pneumonia. Continue Zosyn IV for empiric pulmonary coverage (day 2). Blood and sputum cultures pending. Slight increase in SCr to 2.0 (up from 1.9). Lasix 40mg IV x 1 dose given in ED prior to admission. Urinary output adequate. Continue to monitor urinary output closely. Hypernatremia with slight increase in Na to 148. Patient appears clinical dry. Will initiate NS 75cc/hr for gentle hydration. Sputum culture on 12/24/17 revealed pseudomonas aeruginosa which was treated with Cefepime while inpatient and Levaquin as outpatient - course complete. Initial lactate 1.8 - decreased to 1.6. Troponin 0.079, 0.089, 0.105, 0.106, 0.098. Will consult cardiology given recent CABG and persistent tachycardia. Will monitor closely on telemetry with continuous pulse oximetry. Supplemental oxygen as needed to maintain SAO2 >90%. Baseline on 4L NC at home. Wean as able. Continues to have increased oxygen demands. Will consult pulmonology given history of pulmonary fibrosis. Continue home prednisone 5mg daily. Initiate DuoNeb treatments as well as Pulmicort. Incentive spirometry. Continue respiratory cares. 01/10/18 Bi-pap started due to increased labored breathing Asked nursing to re-weigh given reported 46lb loss today- suspect error Continue to monitor renal function and electrolytes. Framing Manager decreased to 1.8 today Continue Zosyn, adding Vancomycin for pulmonary coverage Sputum culture on 12/24/17 revealed pseudomonas aeruginosa which was treated with Cefepime while inpatient and Levaquin as outpatient - course complete. Continues on chronic home dose of Prednisone Cardiology increased Coreg to 12.5mg BID and started Lasix 40mg IV BID. Appreciate consultations by Dr. Drummond and Dr. Riley.
[2018-01-10] MEDS: SODIUM CL 7% INHAL. SOLN 4ml NEB AEROSOL SCH (16:38)
[2018-01-10] MEDS: CARVEDILOL 12.5 MG TABLET PO SCH (17:27)
[2018-01-10] MEDS: ATORVASTATIN 40 MG TABLET PO SCH (21:15)
[2018-01-10] MEDS: SALINE FLUSH 10ml SYRINGE IVF PRN (21:16)
[2018-01-10] MEDS: NS FLUSH BAG 500ml IV PRN (23:51)
[2018-01-11] MEDS: ALBUTEROL/IPRATROPIUM 2.5mg-0.5mg/3ml NEB AEROSOL PRN ×2 (00:53→08:18)
[2018-01-11] MEDS: SODIUM CL 7% INHAL. SOLN 4ml NEB AEROSOL SCH (00:53)
[2018-01-11] MEDS: ALBUTEROL/IPRATROPIUM 2.5mg-0.5mg/3ml NEB AEROSOL SCH ×5 (00:55→21:48)
[2018-01-11] MEDS: PIPERACILLIN/TAZOBACTAM 2.25 GM in NS 100 ML IV SCH ×3 (04:57→17:20)
[2018-01-11] MEDS: BUDESONIDE INH.SOLN 0.5mg/2ml NEB AEROSOL SCH ×2 (08:18→21:48)
[2018-01-11] MEDS: SODIUM CL 3% INHAL.SOLN 15ml NEB AEROSOL SCH ×2 (09:51→16:22)
[2018-01-11] MEDS: FUROSEMIDE 40 MG/4 ML INJECTION IVP SCH (10:11)
[2018-01-11] MEDS: FINASTERIDE 5 MG TABLET PO SCH (10:11)
[2018-01-11] MEDS: MULTI-VITAMIN PLAIN TABLET PO SCH (10:12)
[2018-01-11] MEDS: PredniSONE 5 MG TABLET PO SCH (10:12)
[2018-01-11] MEDS: ASPIRIN *EC* 81 MG TABLET PO SCH (10:12)
[2018-01-11] MEDS: CARVEDILOL 12.5 MG TABLET PO SCH (10:12)
[2018-01-11] MEDS: POLYETHYL GLYCOL 3350 17gm PACKET PO SCH (10:12)
[2018-01-11] MEDS: SALINE FLUSH 10ml SYRINGE IVF PRN ×4 (10:13→17:20)
--- NOTE | 2018-01-11 15:55 | Cardiology Progress Note ---
<Chely Cano M - Last Filed: 01/11/18 19:53> Subjective Principal diagnosis: SOA, CHF Interval history: Jaime is seen in follow up for SOA and DCHF. He is in bed on Bi-Pap, in no distress, his son is at he bedside. He awakes briefly but quickly falls back asleep. He remains tachycardic. Exam Vital signs: Temperature 96.2 F L 01/11/18 08:00 Pulse Rate 120 H 01/11/18 11:53 Respiratory Rate 25 H 01/11/18 12:08 Blood Pressure 126/75 01/11/18 11:53 Pulse Oximetry 94 01/11/18 12:08 Inpatient Medications: Generic Name Dose Route Start Last Admin Trade Name Freq PRN Reason Stop Dose Admin Acetaminophen 650 mg 01/08/18 15:19 Tylenol PO Q5H PRN Discomfort Albuterol/Ipratropium 3 ml 01/08/18 20:00 01/11/18 12:08 Duoneb AEROSOL 3 ml Q4HR CRISTAL Administration Albuterol/Ipratropium 3 ml 01/08/18 16:36 01/11/18 08:18 Duoneb AEROSOL 3 ml PRN PRN Administration Aspirin 81 mg 01/09/18 09:00 01/11/18 10:12 Ecotrin PO 81 mg DAILY CRISTAL Administration Atorvastatin Calcium 40 mg 01/08/18 21:00 01/10/18 21:15 Lipitor PO 40 mg HS CRISTAL Administration Budesonide 0.5 mg 01/08/18 19:00 01/11/18 08:18 Pulmicort Inhalation AEROSOL 0.5 mg RTBID CRISTAL Administration Carvedilol 12.5 mg 01/10/18 13:46 01/11/18 10:12 Coreg PO 12.5 mg BIDWM CRISTAL Administration Finasteride 5 mg 01/09/18 09:00 01/11/18 10:11 Proscar PO 5 mg DAILY CRISTAL Administration Furosemide 40 mg 01/10/18 10:00 01/11/18 10:11 Lasix 40 Mg/4 Ml IVP 40 mg Q12HR CRISTAL Administration Piperacillin Sod/Tazobactam 100 mls @ 200 mls/hr 01/09/18 17:00 01/11/18 11: 57 Sod 2.25 gm/ Sodium Chloride IV Infused Q6H CRISTAL Infusion Vancomycin HCl 1,250 mg/ 250 mls @ 200 mls/hr 01/11/18 13:00 01/11/18 14:45 Sodium Chloride IV Infused 1300 CRISTAL Infusion Magnesium Hydroxide 30 ml 01/08/18 15:19 Mom PO DAILY PRN Constipation Morphine Sulfate 1 - 2 mg 01/08/18 15:19 01/10/18 04:48 Morphine Sulfate Inj IVP 2 mg Q2H PRN Administration Pain Multivitamins 1 tab 01/09/18 09:00 01/11/18 10:12 Theragran PO 1 tab DAILY CRISTAL Administration Ondansetron HCl 4 mg 01/08/18 15:19 Zofran IVP Q6H PRN Nausea &/or vomiting Polyethylene Glycol 17 gm 01/09/18 09:00 01/11/18 10:12 Miralax PO 17 gm DAILY CRISTAL Administration Prednisone 5 mg 01/09/18 08:00 01/11/18 10:12 Deltasone 5 Mg PO 5 mg WB CRISTAL Administration Senna/Docusate Sodium 1 tab 01/08/18 15:19 01/11/18 10:12 Senna Plus Tablet PO 1 tab BID PRN Administration Constipation Sodium Chloride 10 - 80 ml 01/08/18 12:27 01/11/18 15:04 Iv Flush IVF 10 ml PRN PRN Administration Flushing Sodium Chloride 500 ml 01/08/18 18:49 01/10/18 23:51 Normal Saline IV 500 ml PRN PRN Administration Sodium Chloride 3 ml 01/11/18 10:00 01/11/18 09:51 Sodium Chloride 3% Inhal AEROSOL 3 ml Q8HR CRISTAL Administration Discontinued Medications Generic Name Dose Route Start Last Admin Trade Name Freq PRN Reason Stop Dose Admin Carvedilol 6.25 mg 01/08/18 17:30 01/10/18 08:25 Coreg PO 6.25 mg BIDWM CRISTAL Administration Furosemide 40 mg 01/08/18 12:33 01/08/18 13:04 Lasix 40 Mg/4 Ml IVP 01/08/18 12:34 40 mg O ONE Administration Piperacillin Sod/Tazobactam 100 mls @ 200 mls/hr 01/08/18 18:00 01/09/18 11: 34 Sod 3.375 gm/ Sodium Chloride IV Infused Q8H CRISTAL Infusion Sodium Chloride 1,000 mls @ 75 mls/hr 01/09/18 09:15 01/10/18 04:25 Normal Saline IV Infused .[id number] CRISTAL Infusion Lactated Ringer's 1,000 mls @ 100 mls/hr 01/10/18 04:30 01/10/18 14:14 Lactated Ringers IV Infused .Q10H CRISTAL Infusion Vancomycin HCl 1,500 mg/ 500 mls @ 250 mls/hr 01/10/18 13:00 01/10/18 16:00 Sodium Chloride IV 01/10/18 14:59 Infused O ONE Infusion Sodium Chloride 4 ml 01/10/18 17:00 01/11/18 00:53 Hyper-Brant AEROSOL 4 ml Q8HR CRISTAL Administration Vancomycin HCl 1 each 01/10/18 10:51 01/10/18 11:33 Pharmacy Consult - Vancomycin 01/10/18 10:52 Not Given O ONE - Constitutional no acute distress, well nourished, cooperative - Routine HEENT Exam Head: Present: normocephalic ENT: Present: mucous membranes dry - Routine Neck Exam Absent: JVD, carotid bruit - Routine Respiratory Exam Present: diminished air movement. Absent: dyspnea - Routine Cardiovascular Exam Present: tachycardia - Routine Abdominal Exam Present: soft, non tender - Routine Extremities Exam Present: edema - Routine Skin Exam Present: intact, dry, warm - Routine Psychiatric Exam Present: unable to assess (sleeping) Results 01/11/18 04:39 01/11/18 04:39 Cardiac Enzymes 01/11/18 Range/Units 04:39 AST 40 (17-59) U/L CBC 01/11/18 Range/Units 04:39 WBC 14.9 H (4.5-11.0) T/MM3 RBC 3.81 L (4.50-5.90) M/MM3 Hgb 11.1 L (13.5-17.5) GM/DL Hct 35.0 L (41-53) % Plt Count 227 (130-400) T/MM3 Neut # (Auto) 10.7 H (1.8-7.7) T/MM3 Lymph # (Auto) 2.5 (1-4.8) T/MM3 [place] # (Auto) 1.2 H (0-0.8) T/MM3 Eos # (Auto) 0.3 (0-0.5) T/MM3 Baso # (Auto) 0.0 (0-0.2) T/MM3 Comprehensive Metabolic Panel 01/11/18 Range/Units 04:39 Sodium 146 H (134-144) MEQ/L Potassium 3.7 (3.6-5) MEQ/L Chloride 106 (98-107) MEQ/L Carbon Dioxide 32 H (22-30) MEQ/L BUN 23.0 H (9-20) MG/DL Creatinine 2.1 H D (0.8-1.5) mg/dL Glucose 124 H (75-110) MG/DL Calcium 8.4 (8.4-10.2) MG/DL AST 40 (17-59) U/L ALT 37 (1-50) U/L Alkaline Phosphatase 77 (38-126) U/L Total Protein 6.3 (6.3-8.2) g/dL Albumin 3.1 L (3.5-5.0) g/dL Intake and Output 01/11/18 01/11/18 01/11/18 06:59 14:59 22:59 Intake Total 370 / 370 850 / 850 Output Total 525 / 525 275 / 275 400 / 400 Balance -155 / -155 575 / 575 -400 / -400 Intake: IV 200 / 200 350 / 350 Piperacillin/Tazobactam 2.25 gm 200 / 200 100 / 100 In Ns 100 ml @ 200 mls/hr IV Q6H CRISTAL Rx#:[id number] Vancomycin 1,250 mg In NS 250ml 250 / 250 250 ml @ 200 mls/hr IV 1300 CRISTAL Rx#:[id number] Oral 170 / 170 500 / 500 Output: Urine 525 / 525 275 / 275 400 / 400 Other: Urine Appearance Clear Clear Urine Color Yellow Yellow Urine Odor Normal # Voids 2 Assessment and Plan - Assessment and Plan (1) Acute and chronic respiratory failure Status: Acute (2) Atherosclerotic heart disease of [place] coronary artery without angina pectoris Status: Chronic (3) Congestive heart failure Status: Chronic (4) CKD (chronic kidney disease) Status: Chronic (5) Mixed hyperlipidemia Status: Chronic - Assessment and Plan 01/09/18 Acute on chronic Respiratory failure: On chronic O2 4L at home - currently on high flow NC at 11L. 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 Dr. G. Khicha -On aspirin, statin and BB - serial troponin negative CHF - grade 1 diastolic dysfunction - EF 40-45%, mild MR/TR. - Repeat 2 D echo - BNP CKD: Recent AMELIA - SCr increased to 3.06 on 01/02/18. - stage 3 - baseline SCr 1.3-1.6. -Follow renal function HLD: -On Atorvastatin Thank you for allowing us to participate in the care of this patient. 01/10/18 CHF: EF 45% on echo - PAP 65mmHg - Lasix 40mg IV q12h for diuresis - Monitor renal and electrolytes - Increase Coreg for better HR 01/11/18 Increase Coreg to 25mg as HR remains low 100s Change Lasix to 40mg po BID, DC IV Lasix Hospital Course Summary Disclaimer: The visit summary below is not to be considered part of the above Progress Note. Hospital Course: Plan - 01/08/18: Patient admitted to observation status under the care of Dr. Beaver. Concern for SIRS/sepsis, though no infection identified. Suspect pulmonary source. Initiate zosyn IV for empiric pulmonary coverage. Lasix 40mg IV x 1 dose given in ED due to concern for fluid overload. Weight up 1 kg in 1 week. Monitor urinary output closely as well as daily weight. Given persistent leukocytosis with respiratory failure, will obtain blood cultures as well as sputum culture. Sputum culture on 12/24/17 revealed pseudomonas aeruginosa which was treated with Cefepime while inpatient and Levaquin as outpatient - course complete. Initial lactate 1.8. Troponin 0.079 and BNP 2370. Will monitor serial troponins and lactates. Will monitor closely on telemetry with continuous pulse oximetry. Supplemental oxygen as needed to maintain SAO2 >90%. Baseline on 4L NC at home. Will consult pulmonology given history of pulmonary fibrosis. Continue home prednisone 5mg daily. Initiate DuoNeb treatments as well as Pulmicort. Incentive spirometry. SCr elevated compared to baseline at 1.9. 1.99 on 01/06/18. Continue to monitor closely. Recheck labs in AM to monitor blood counts, electrolytes and renal function. Upon discharge, his care will be returned to his PCP at the [place]. He requests to be a FULL CODE. Plan - 01/09/18: Continued increased oxygen demand, elevated renal function and Continued concern for SIRS/sepsis, though no infection identified. Suspect pulmonary source. Continue zosyn IV for empiric pulmonary coverage (day 2). Blood and sputum cultures pending. Slight increase in SCr to 2.0 (up from 1.9). Lasix 40mg IV x 1 dose given in ED prior to admission. Urinary output adequate. Continue to monitor urinary output closely. Hypernatremia with slight increase in Na to 148. Patient appears clinical dry. Will initiate NS 75cc/hr for gentle hydration. Sputum culture on 12/24/17 revealed pseudomonas aeruginosa which was treated with Cefepime while inpatient and Levaquin as outpatient - course complete. Initial lactate 1.8 - decreased to 1.6. Troponin 0.079, 0.089, 0.105, 0.106, 0.098. Will consult cardiology given recent CABG and persistent tachycardia. Will monitor closely on telemetry with continuous pulse oximetry. Supplemental oxygen as needed to maintain SAO2 >90%. Baseline on 4L NC at home. Wean as able. Continues to have increased oxygen demands. Will consult pulmonology given history of pulmonary fibrosis. Continue home prednisone 5mg daily. Initiate DuoNeb treatments as well as Pulmicort. Incentive spirometry. Continue respiratory cares. Recheck labs in AM to monitor blood counts, electrolytes and renal function. <Mina Riley - Last Filed: 01/18/18 13:41> Exam Vital signs: Temperature 97.0 F 01/17/18 15:22 Pulse Rate 71 01/17/18 16:00 Respiratory Rate 16 01/17/18 08:00 Blood Pressure 103/65 01/17/18 15:22 Pulse Oximetry 96 01/17/18 15:22 Inpatient Medications: Discontinued Medications Generic Name Dose Route Start Last Admin Trade Name Freq PRN Reason Stop Dose Admin Acetaminophen 650 mg 01/08/18 15:19 Tylenol PO Q5H PRN Discomfort Albuterol/Ipratropium 3 ml 01/08/18 20:00 01/15/18 08:24 Duoneb AEROSOL 3 ml Q4HR CRISTAL Administration Albuterol/Ipratropium 3 ml 01/08/18 16:36 01/11/18 08:18 Duoneb AEROSOL 3 ml PRN PRN Administration Albuterol/Ipratropium 3 ml 01/15/18 13:00 01/16/18 11:35 Duoneb AEROSOL 3 ml QID CRISTAL Administration Aspirin 81 mg 01/09/18 09:00 01/17/18 09:05 Ecotrin PO 81 mg DAILY CRISTAL Administration Atorvastatin Calcium 40 mg 01/08/18 21:00 01/16/18 20:02 Lipitor PO 40 mg HS CRISTAL Administration Budesonide 0.5 mg 01/08/18 19:00 01/16/18 07:15 Pulmicort Inhalation AEROSOL 0.5 mg RTBID CRISTAL Administration Carvedilol 6.25 mg 01/08/18 17:30 01/10/18 08:25 Coreg PO 6.25 mg BIDWM CRISTAL Administration Carvedilol 12.5 mg 01/10/18 13:46 01/11/18 10:12 Coreg PO 12.5 mg BIDWM CRISTAL Administration Carvedilol 25 mg 01/11/18 17:30 01/17/18 17:46 Coreg PO 25 mg BIDWM CRISTAL Administration Finasteride 5 mg 01/09/18 09:00 01/17/18 09:05 Proscar PO 5 mg DAILY CRISTAL Administration Furosemide 40 mg 01/08/18 12:33 01/08/18 13:04 Lasix 40 Mg/4 Ml IVP 01/08/18 12:34 40 mg O ONE Administration Furosemide 40 mg 01/10/18 10:00 01/11/18 10:11 Lasix 40 Mg/4 Ml IVP 40 mg Q12HR CRISTAL Administration Furosemide 40 mg 01/12/18 09:00 01/12/18 16:15 Lasix 40 Mg Tab PO 40 mg 0900,1700 CRISTAL Administration Furosemide 80 mg 01/12/18 17:15 01/13/18 01:54 Lasix 40 Mg Tab PO 80 mg Q8H CRISTAL Administration Furosemide 80 mg 01/13/18 09:00 01/14/18 10:29 Lasix 100 Mg/10 Ml IVP 80 mg Q8HR CRISTAL Administration Furosemide 40 mg 01/14/18 21:00 01/14/18 23:05 Lasix 40 Mg/4 Ml IVP 40 mg Q12HR CRISTAL Administration Furosemide 40 mg 01/16/18 09:00 01/17/18 09:04 Lasix 40 Mg/4 Ml IVP 40 mg DAILY CRISTAL Administration Piperacillin Sod/Tazobactam 100 mls @ 200 mls/hr 01/08/18 18:00 01/09/18 11: 34 Sod 3.375 gm/ Sodium Chloride IV Infused Q8H CRISTAL Infusion Sodium Chloride 1,000 mls @ 75 mls/hr 01/09/18 09:15 01/10/18 04:25 Normal Saline IV Infused .[id number] CRISTAL Infusion Piperacillin Sod/Tazobactam 100 mls @ 200 mls/hr 01/09/18 17:00 01/16/18 11: 55 Sod 2.25 gm/ Sodium Chloride IV Infused Q6H CRISTAL Infusion Lactated Ringer's 1,000 mls @ 100 mls/hr 01/10/18 04:30 01/10/18 14:14 Lactated Ringers IV Infused .Q10H CRISTAL Infusion Vancomycin HCl 1,500 mg/ 500 mls @ 250 mls/hr 01/10/18 13:00 01/10/18 16:00 Sodium Chloride IV 01/10/18 14:59 Infused O ONE Infusion Vancomycin HCl 1,250 mg/ 250 mls @ 200 mls/hr 01/11/18 13:00 01/13/18 14:12 Sodium Chloride IV Not Given 1300 CRISTAL Vancomycin HCl 1,750 mg/ 500 mls @ 250 mls/hr 01/13/18 13:00 01/14/18 17:12 Sodium Chloride IV Infused Q24HR CRISTAL Infusion Vancomycin HCl 1,000 mg/ 250 mls @ 250 mls/hr 01/16/18 06:00 01/16/18 07:00 Sodium Chloride IV Infused Q24H CRISTAL Infusion Lorazepam 0.5 mg 01/11/18 16:40 Ativan Inj IVP Q4H PRN Anxiety/Air hunger/Agitation Magnesium Hydroxide 30 ml 01/08/18 15:19 Mom PO DAILY PRN Constipation Metolazone 5 mg 01/13/18 09:00 01/14/18 11:54 Zaroxolyn PO Not Given DAILY CRISTAL Morphine Sulfate 1 - 2 mg 01/08/18 15:19 01/10/18 04:48 Morphine Sulfate Inj IVP 2 mg Q2H PRN Administration Pain Multivitamins 1 tab 01/09/18 09:00 01/17/18 09:05 Theragran PO 1 tab DAILY CRISTAL Administration Ondansetron HCl 4 mg 01/08/18 15:19 Zofran IVP Q6H PRN Nausea &/or vomiting Polyethylene Glycol 17 gm 01/09/18 09:00 01/17/18 09:04 Miralax PO 17 gm DAILY CRISTAL Administration Potassium Chloride 20 meq 01/14/18 06:03 01/14/18 06:09 K-Dur 20 Meq Tablet PO 20 meq BIDWM CRISTAL Administration Potassium Chloride 40 meq 01/14/18 11:45 01/14/18 23:02 K-Dur 20 Meq Tablet PO 01/14/18 19:46 40 meq Q4H CRISTAL Administration Potassium Chloride 40 meq 01/16/18 14:15 01/16/18 15:51 K-Dur 20 Meq Tablet PO 01/16/18 14:16 40 meq O ONE Administration Potassium Chloride 40 meq 01/17/18 08:17 01/17/18 09:04 K-Dur 20 Meq Tablet PO 01/17/18 08:18 40 meq O ONE Administration Prednisone 5 mg 01/09/18 08:00 01/11/18 10:12 Deltasone 5 Mg PO 5 mg WB CRISTAL Administration Prednisone 50 mg 01/11/18 16:45 01/13/18 09:42 Deltasone 50 Mg PO 50 mg DAILY CRISTAL Administration Prednisone 50 mg 01/14/18 08:00 01/15/18 11:02 Deltasone 50 Mg PO 01/16/18 08:00 Not Given WB CRISTAL Prednisone 40 mg 01/15/18 10:45 01/17/18 09:05 Deltasone 20 Mg PO 40 mg WB CRISTAL Administration Senna/Docusate Sodium 1 tab 01/08/18 15:19 01/11/18 10:12 Senna Plus Tablet PO 1 tab BID PRN Administration Constipation Sodium Chloride 10 - 80 ml 01/08/18 12:27 01/13/18 13:32 Iv Flush IVF 30 ml PRN PRN Administration Flushing Sodium Chloride 500 ml 01/08/18 18:49 01/13/18 11:57 Normal Saline IV 500 ml PRN PRN Administration Sodium Chloride 4 ml 01/10/18 17:00 01/12/18 10:06 Hyper-Brant AEROSOL Not Given Q8HR CRISTAL Sodium Chloride 3 ml 01/11/18 10:00 01/16/18 12:59 Sodium Chloride 3% Inhal AEROSOL Not Given Q8HR CRISTAL Sodium Chloride 2 spray 01/12/18 17:05 01/17/18 17:46 [place] Nasal Moisturizing [place] EA NOSTRIL 2 spray QID CRISTAL Administration Vancomycin HCl 1 each 01/10/18 10:51 01/10/18 11:33 Pharmacy Consult - Vancomycin MC 01/10/18 10:52 Not Given O ONE Results 01/16/18 05:10 01/17/18 07:44 Intake and Output 01/17/18 01/18/18 01/18/18 22:59 06:59 14:59 Output Total 225 / 225 Balance -225 / -225 Output: Urine 225 / 225 Assessment and Plan - Assessment and Plan (1) Congestive heart failure Status: Chronic (2) Acute and chronic respiratory failure Status: Acute (3) Atherosclerotic heart disease of [place] coronary artery without angina pectoris Status: Chronic (4) CKD (chronic kidney disease) Status: Chronic (5) Mixed hyperlipidemia Status: Chronic - Attestation Attestation Narrative: 01/18/18 13:41 Recommendation After examining the patient I agree with the above assessment. I am involved in the formulation of the patient's plan of care. Hospital Course Summary Disclaimer: The visit summary below is not to be considered part of the above Progress Note.
--- NOTE | 2018-01-11 16:56 | Progress Note ---
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 Resting in bed on BiPAP. Easily awakened. Breathing feeling about the same- notes little cough/congestion but just not feeling like he is improving. Not feeling work of breathing too excessive-does tolerate BiPAP and feels helping. Not feeling chest pressure or pain. No nausea or ab pain. Not had stool for 2 days. Urinating well. Objective Vital signs: Temperature 96.2 F L 01/11/18 08:00 Pulse Rate 84 01/11/18 16:09 Respiratory Rate 30 H 01/11/18 16:09 Blood Pressure 109/65 01/11/18 16:09 Pulse Oximetry 95 01/11/18 16:09 Rhythm: Sinus Tachycardia Height/Weight/BMI: Weight 103.4 kg - Constitutional Present: mild distress, well nourished, well developed, average body habitus, cooperative, other (Appears tired and weak.) - Routine HEENT Exam Head: Present: normocephalic, atraumatic Eye: Present: EOMI, PERRL ENT: Present: mucous membranes moist - Routine Respiratory Exam Present: decreased breath sounds, distant breath sounds, diminished air movement. Absent: wheezes, crackles - Routine Cardiovascular Exam Present: no murmur, tachycardia (Regular) - Routine Abdominal Exam Present: soft, non distended, non tender. Absent: normoactive bowel sounds ( Decreased), guarding - Routine Extremities Exam Present: no edema, pulses intact. Absent: cyanosis, clubbing - Routine Musculoskeletal Exam Musculoskeletal: Present: no clubbing or cyanosis - Routine Neurological Exam Present: alert, oriented X3, CN II-XII intact, moving all extremities, vision grossly intact, hearing grossly intact, normal speech. 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 Recent AMELIA - SCr increased to 3.06 on 01/02/18. Chronic kidney disease, stage 3 - baseline SCr 1.3-1.6 Hyperlipidemia BPH GERD Former tobaccoism Obesity - BMI >30 Plan Continue with Zosyn (Day 4) and Vancomycin (Day 2) for pulmonary coverage. Will increase Prednisone to 50mg to try to help respiratory status. May have lorazepam 0.5mg IV q 4 hours prn anxiety/air hunger. Not having symptoms, but prudent to be available. Continues with BiPAP to help decrease work of breathing Saturations 94-95% on 60% FIO2. Resp rate increased at 25-34. With findings on CT scan, Dr Drummond recommended pulmonary Bx. Patient and family not wanting this procedure. Cardiology increased carvedilol to 25mg due to persistent tachycardic. Lasix still at 40mg IV BID - will need to monitor BP/Creatinine due to potential for overdiuresis. CO2 increased to 32. Creatinine 2.1. Will recheck CBC, BMP, and Mg in am due to pneumonia and medication use. Recheck CXR in am for f/u. Case discussed with CM and Pulm. Time spent with patient care 25 minutes. DVT Prophylaxis: SCD's Resuscitation Status: Full Code - Time spent with patient Time with patient PN: 25 minutes - Physician Narrative Physician: Remigio Coleman MD Narrative: Date: 01/11/18 Time: 165 Hospital Course Summary Disclaimer: The visit summary below is not to be considered part of the above Progress Note. Hospital Course: 01/08/18 OBS Patient admitted to observation status under the care of Dr. Beaver. Concern for SIRS/sepsis, though no infection identified. Suspect pulmonary source. Initiate zosyn IV for empiric pulmonary coverage. Lasix 40mg IV x 1 dose given in ED due to concern for fluid overload. Weight up 1 kg in 1 week. Monitor urinary output closely as well as daily weight. Given persistent leukocytosis with respiratory failure, will obtain blood cultures as well as sputum culture. Sputum culture on 12/24/17 revealed pseudomonas aeruginosa which was treated with Cefepime while inpatient and Levaquin as outpatient - course complete. Initial lactate 1.8. Troponin 0.079 and BNP 2370. Will monitor serial troponins and lactates. Will monitor closely on telemetry with continuous pulse oximetry. Supplemental oxygen as needed to maintain SAO2 >90%. Baseline on 4L NC at home. Will consult pulmonology given history of pulmonary fibrosis. Continue home prednisone 5mg daily. Initiate DuoNeb treatments as well as Pulmicort. Incentive spirometry. SCr elevated compared to baseline at 1.9. 1.99 on 01/06/18. Continue to monitor closely. Recheck labs in AM to monitor blood counts, electrolytes and renal function. Upon discharge, his care will be returned to his PCP at the [facility]. He requests to be a FULL CODE. 01/09/18 With continued increased need for oxygen above and beyond baseline, coupled with pneumonia, will change admission status to inpatient. Continued increased oxygen demand, elevated renal function and white blood count. Suspect pulmonary source - pneumonia. Continue Zosyn IV for empiric pulmonary coverage (day 2). Blood and sputum cultures pending. Slight increase in SCr to 2.0 (up from 1.9). Lasix 40mg IV x 1 dose given in ED prior to admission. Urinary output adequate. Continue to monitor urinary output closely. Hypernatremia with slight increase in Na to 148. Patient appears clinical dry. Will initiate NS 75cc/hr for gentle hydration. Initial lactate 1.8 - decreased to 1.6. Troponin 0.079, 0.089, 0.105, 0.106, 0.098. Will consult cardiology given recent CABG and persistent tachycardia. Will monitor closely on telemetry with continuous pulse oximetry. Supplemental oxygen as needed to maintain SAO2 >90%. Baseline on 4L NC at home. Wean as able. Continues to have increased oxygen demands. Will consult pulmonology given history of pulmonary fibrosis. Continue home prednisone 5mg daily. Initiate DuoNeb treatments as well as Pulmicort. Incentive spirometry. Continue respiratory cares. 01/10/18 Bi-pap started due to increased labored breathing. Continue to monitor renal function and electrolytes. Creatinine decreased to 1.8 today. Continue Zosyn, adding Vancomycin for pulmonary coverage. Continues on chronic home dose of Prednisone. Cardiology increased Coreg to 12.5mg BID and started Lasix 40mg IV BID. Appreciate consultations by Dr. Drummond and Dr. Riley. 01/11/18 Continue with Zosyn (Day 4) and Vancomycin (Day 2) for pulmonary coverage. Will increase Prednisone to 50mg to try to help respiratory status. May have lorazepam 0.5mg IV q 4 hours prn anxiety/air hunger Not having symptoms, but prudent to be available. Continues with BiPAP to help decrease work of breathing Saturations 94-95% on 60% FIO2. Resp rate increased at 25-34. With findings on CT scan, Dr Drummond recommended pulmonary Bx. Patient and family not wanting this procedure. Cardiology increased carvedilol to 25mg due to persistent tachycardic. Lasix still at 40mg IV BID - will need to monitor BP/Creatinine due to potential for overdiuresis. CO2 increased to 32. Creatinine 2.1.
--- NOTE | 2018-01-11 17:03 | Pulmonology Progress Note ---
Subjective Principal diagnosis: SOA, CHF Interval history: He is on BIPAP this afternoon. He isn't feeling a lot better yet. I discussed the case with patient and son William as discussed below Exam Vital signs: Temperature 96.2 F L 01/11/18 08:00 Pulse Rate 84 01/11/18 16:09 Respiratory Rate 30 H 01/11/18 16:09 Blood Pressure 109/65 01/11/18 16:09 Pulse Oximetry 95 01/11/18 16:09 Inpatient Medications: Generic Name Dose Route Start Last Admin Trade Name Freq PRN Reason Stop Dose Admin Acetaminophen 650 mg 01/08/18 15:19 Tylenol PO Q5H PRN Discomfort Albuterol/Ipratropium 3 ml 01/08/18 20:00 01/11/18 16:02 Duoneb AEROSOL 3 ml Q4HR CRISTAL Administration Albuterol/Ipratropium 3 ml 01/08/18 16:36 01/11/18 08:18 Duoneb AEROSOL 3 ml PRN PRN Administration Aspirin 81 mg 01/09/18 09:00 01/11/18 10:12 Ecotrin PO 81 mg DAILY CRISTAL Administration Atorvastatin Calcium 40 mg 01/08/18 21:00 01/10/18 21:15 Lipitor PO 40 mg HS CRISTAL Administration Budesonide 0.5 mg 01/08/18 19:00 01/11/18 08:18 Pulmicort Inhalation AEROSOL 0.5 mg RTBID CRISTAL Administration Carvedilol 25 mg 01/11/18 17:30 Coreg PO BIDWM CRISTAL Finasteride 5 mg 01/09/18 09:00 01/11/18 10:11 Proscar PO 5 mg DAILY CRISTAL Administration Furosemide 40 mg 01/10/18 10:00 01/11/18 10:11 Lasix 40 Mg/4 Ml IVP 40 mg Q12HR CRISTAL Administration Piperacillin Sod/Tazobactam 100 mls @ 200 mls/hr 01/09/18 17:00 01/11/18 11: 57 Sod 2.25 gm/ Sodium Chloride IV Infused Q6H CRISTAL Infusion Vancomycin HCl 1,250 mg/ 250 mls @ 200 mls/hr 01/11/18 13:00 01/11/18 14:45 Sodium Chloride IV Infused 1300 CRISTAL Infusion Lorazepam 0.5 mg 01/11/18 16:40 Ativan Inj IVP Q4H PRN Anxiety/Air hunger/Agitation Magnesium Hydroxide 30 ml 01/08/18 15:19 Mom PO DAILY PRN Constipation Morphine Sulfate 1 - 2 mg 01/08/18 15:19 01/10/18 04:48 Morphine Sulfate Inj IVP 2 mg Q2H PRN Administration Pain Multivitamins 1 tab 01/09/18 09:00 01/11/18 10:12 Theragran PO 1 tab DAILY CRISTAL Administration Ondansetron HCl 4 mg 01/08/18 15:19 Zofran IVP Q6H PRN Nausea &/or vomiting Polyethylene Glycol 17 gm 01/09/18 09:00 01/11/18 10:12 Miralax PO 17 gm DAILY CRISTAL Administration Prednisone 50 mg 01/11/18 16:45 Deltasone 50 Mg PO DAILY CRISTAL Senna/Docusate Sodium 1 tab 01/08/18 15:19 01/11/18 10:12 Senna Plus Tablet PO 1 tab BID PRN Administration Constipation Sodium Chloride 10 - 80 ml 01/08/18 12:27 01/11/18 15:04 Iv Flush IVF 10 ml PRN PRN Administration Flushing Sodium Chloride 500 ml 01/08/18 18:49 01/10/18 23:51 Normal Saline IV 500 ml PRN PRN Administration Sodium Chloride 3 ml 01/11/18 10:00 01/11/18 16:22 Sodium Chloride 3% Inhal AEROSOL 3 ml Q8HR CRISTAL Administration Discontinued Medications Generic Name Dose Route Start Last Admin Trade Name Freq PRN Reason Stop Dose Admin Carvedilol 6.25 mg 01/08/18 17:30 01/10/18 08:25 Coreg PO 6.25 mg BIDWM CRISTAL Administration Carvedilol 12.5 mg 01/10/18 13:46 01/11/18 10:12 Coreg PO 12.5 mg BIDWM CRISTAL Administration Furosemide 40 mg 01/08/18 12:33 01/08/18 13:04 Lasix 40 Mg/4 Ml IVP 01/08/18 12:34 40 mg O ONE Administration Piperacillin Sod/Tazobactam 100 mls @ 200 mls/hr 01/08/18 18:00 01/09/18 11: 34 Sod 3.375 gm/ Sodium Chloride IV Infused Q8H CRISTAL Infusion Sodium Chloride 1,000 mls @ 75 mls/hr 01/09/18 09:15 01/10/18 04:25 Normal Saline IV Infused .[id number] CRISTAL Infusion Lactated Ringer's 1,000 mls @ 100 mls/hr 01/10/18 04:30 01/10/18 14:14 Lactated Ringers IV Infused .Q10H CRISTAL Infusion Vancomycin HCl 1,500 mg/ 500 mls @ 250 mls/hr 01/10/18 13:00 01/10/18 16:00 Sodium Chloride IV 01/10/18 14:59 Infused O ONE Infusion Prednisone 5 mg 01/09/18 08:00 01/11/18 10:12 Deltasone 5 Mg PO 5 mg WB CRISTAL Administration Sodium Chloride 4 ml 01/10/18 17:00 01/11/18 00:53 Hyper-Brant AEROSOL 4 ml Q8HR CRISTAL Administration Vancomycin HCl 1 each 01/10/18 10:51 01/10/18 11:33 Pharmacy Consult - Vancomycin 01/10/18 10:52 Not Given O ONE - Constitutional no acute distress - Routine HEENT Exam Head: Present: normocephalic, atraumatic Eye: Present: EOMI. Absent: conjunctival icterus - Routine Neck Exam Present: supple. Absent: JVD - Routine Respiratory Exam Present: accessory muscle use, patient mechanically ventilated, crackles - Routine Cardiovascular Exam Present: RRR - Routine Abdominal Exam Present: soft. Absent: guarding - Routine Neurological Exam Present: alert, oriented X3. Absent: motor deficit Results - Laboratory Findings Laboratory: Laboratory Results - last 48 hr 01/09/18 01/10/18 01/10/18 21:35 03:53 03:53 WBC 14.9 H RBC 3.79 L Hgb 11.3 L Hct 34.5 L MCV 91.0 MCH 29.8 MCHC 32.8 RDW Std Deviation 44.8 Plt Count 234 MPV 8.2 L Immature Gran % (Auto) 0.3 Neut % (Auto) 77.0 H Lymph % (Auto) 13.2 L [place] % (Auto) 7.0 Eos % (Auto) 2.4 Baso % (Auto) 0.1 Neut # (Auto) 11.5 H Lymph # (Auto) 2.0 [place] # (Auto) 1.0 H Eos # (Auto) 0.4 Baso # (Auto) 0.0 Abs Immat Gran (auto) 0.04 H Turbidity < 20 Sodium 146 H Potassium 3.9 Chloride 110 H Carbon Dioxide 27 Anion Gap 9 BUN 23.0 H Creatinine 1.8 H D GFR Calculation 37 BUN/Creatinine Ratio 13 Glucose 114 H Calculated Osmolality 286 H Calcium 8.4 Total Bilirubin 1.30 Icterus Index < 2 AST 35 ALT 42 Alkaline Phosphatase 80 Troponin I 0.099 Total Protein 6.4 Albumin 3.1 L Globulin 3.3 Albumin/Globulin Ratio 0.9 L Specimen Hemolysis < 15 < 15 01/11/18 01/11/18 04:39 04:39 WBC 14.9 H RBC 3.81 L Hgb 11.1 L Hct 35.0 L MCV 91.9 MCH 29.1 MCHC 31.7 RDW Std Deviation 45.8 Plt Count 227 MPV 8.6 L Immature Gran % (Auto) 0.3 Neut % (Auto) 72.3 H Lymph % (Auto) 16.8 L [place] % (Auto) 8.3 Eos % (Auto) 2.2 Baso % (Auto) 0.1 Neut # (Auto) 10.7 H Lymph # (Auto) 2.5 [place] # (Auto) 1.2 H Eos # (Auto) 0.3 Baso # (Auto) 0.0 Abs Immat Gran (auto) 0.05 H Turbidity < 20 Sodium 146 H Potassium 3.7 Chloride 106 Carbon Dioxide 32 H Anion Gap 8 BUN 23.0 H Creatinine 2.1 H D GFR Calculation 31 BUN/Creatinine Ratio 11 Glucose 124 H Calculated Osmolality 286 H Calcium 8.4 Total Bilirubin 1.20 Icterus Index < 2 AST 40 ALT 37 Alkaline Phosphatase 77 Troponin I Total Protein 6.3 Albumin 3.1 L Globulin 3.2 Albumin/Globulin Ratio 1.0 L Specimen Hemolysis < 15 - Diagnostic Findings CT scan - chest: report reviewed, image reviewed Assessment and Plan (1) Interstitial lung disease Status: Acute Assessment and plan: This is a 77 year old gentleman with ILD, seen in the past by pulm at the [facility]. He was treated with prednisone for a prolonged course with limited benefit His HRCT shows ground glass opacities and reticular markings with some honeycombing but less architectural distortion than one would normally see in UIP/IPF. The atypical presentation of his case required surgical lung biopsy for accurate diagnosis, and unfortunately the patient is not willing to undergo that procedure. I discussed the case with Dr Coleman. I vita with increasing his dose of corticosteroids at this time. Current Visit: Yes - Assessment and Plan Acute on chronic hypoxemic respiratory failure pulmonary fibrosis, unclear etiology Pseudomonas pneumonia - Time Spent With Patient Total time spent is greater than 50% in coordination of care (as documented) at patient's floor/unit and/or counseling patient: less than 15 minutes
[2018-01-11] MEDS: CARVEDILOL 25 MG TABLET PO SCH (17:20)
[2018-01-11] MEDS: ATORVASTATIN 40 MG TABLET PO SCH (21:54)
[2018-01-12] MEDS: PIPERACILLIN/TAZOBACTAM 2.25 GM in NS 100 ML IV SCH ×4 (00:19→16:15)
[2018-01-12] MEDS: SODIUM CL 3% INHAL.SOLN 15ml NEB AEROSOL SCH ×2 (02:55→10:14)
[2018-01-12] MEDS: ALBUTEROL/IPRATROPIUM 2.5mg-0.5mg/3ml NEB AEROSOL SCH ×6 (02:56→19:47)
[2018-01-12] MEDS: BUDESONIDE INH.SOLN 0.5mg/2ml NEB AEROSOL SCH ×2 (07:52→19:47)
--- NOTE | 2018-01-12 09:55 | Pulmonology Progress Note ---
Subjective Principal diagnosis: SOA, CHF Interval history: Pt currently on bipap, states he feels his breathing isn't much better. Still with SOB noted, not much cough and sputum noted. Exam Vital signs: Temperature 96.2 F L 01/12/18 09:00 Pulse Rate 81 01/12/18 09:00 Respiratory Rate 39 H 01/12/18 09:00 Blood Pressure 127/79 01/12/18 09:00 Pulse Oximetry 92 01/12/18 09:00 Inpatient Medications: Generic Name Dose Route Start Last Admin Trade Name Freq PRN Reason Stop Dose Admin Acetaminophen 650 mg 01/08/18 15:19 Tylenol PO Q5H PRN Discomfort Albuterol/Ipratropium 3 ml 01/08/18 20:00 01/12/18 07:53 Duoneb AEROSOL 3 ml Q4HR CRISTAL Administration Albuterol/Ipratropium 3 ml 01/08/18 16:36 01/11/18 08:18 Duoneb AEROSOL 3 ml PRN PRN Administration Aspirin 81 mg 01/09/18 09:00 01/11/18 10:12 Ecotrin PO 81 mg DAILY CRISTAL Administration Atorvastatin Calcium 40 mg 01/08/18 21:00 01/11/18 21:54 Lipitor PO 40 mg HS CRISTAL Administration Budesonide 0.5 mg 01/08/18 19:00 01/12/18 07:52 Pulmicort Inhalation AEROSOL 0.5 mg RTBID CRISTAL Administration Carvedilol 25 mg 01/11/18 17:30 01/11/18 17:20 Coreg PO 25 mg BIDWM CRISTAL Administration Finasteride 5 mg 01/09/18 09:00 01/11/18 10:11 Proscar PO 5 mg DAILY CRISTAL Administration Furosemide 40 mg 01/12/18 09:00 Lasix 40 Mg Tab PO 0900,1700 CRISTAL Piperacillin Sod/Tazobactam 100 mls @ 200 mls/hr 01/09/18 17:00 01/12/18 06: 20 Sod 2.25 gm/ Sodium Chloride IV Infused Q6H CRISTAL Infusion Vancomycin HCl 1,250 mg/ 250 mls @ 200 mls/hr 01/11/18 13:00 01/11/18 14:45 Sodium Chloride IV Infused 1300 CRISTAL Infusion Lorazepam 0.5 mg 01/11/18 16:40 Ativan Inj IVP Q4H PRN Anxiety/Air hunger/Agitation Magnesium Hydroxide 30 ml 01/08/18 15:19 Mom PO DAILY PRN Constipation Morphine Sulfate 1 - 2 mg 01/08/18 15:19 01/10/18 04:48 Morphine Sulfate Inj IVP 2 mg Q2H PRN Administration Pain Multivitamins 1 tab 01/09/18 09:00 01/11/18 10:12 Theragran PO 1 tab DAILY CRISTAL Administration Ondansetron HCl 4 mg 01/08/18 15:19 Zofran IVP Q6H PRN Nausea &/or vomiting Polyethylene Glycol 17 gm 01/09/18 09:00 01/11/18 10:12 Miralax PO 17 gm DAILY CRISTAL Administration Prednisone 50 mg 01/11/18 16:45 01/11/18 17:20 Deltasone 50 Mg PO 50 mg DAILY CRISTAL Administration Senna/Docusate Sodium 1 tab 01/08/18 15:19 01/11/18 10:12 Senna Plus Tablet PO 1 tab BID PRN Administration Constipation Sodium Chloride 10 - 80 ml 01/08/18 12:27 01/11/18 17:20 Iv Flush IVF 10 ml PRN PRN Administration Flushing Sodium Chloride 500 ml 01/08/18 18:49 01/10/18 23:51 Normal Saline IV 500 ml PRN PRN Administration Sodium Chloride 3 ml 01/11/18 10:00 01/12/18 02:55 Sodium Chloride 3% Inhal AEROSOL 3 ml Q8HR CRISTAL Administration Discontinued Medications Generic Name Dose Route Start Last Admin Trade Name Freq PRN Reason Stop Dose Admin Carvedilol 6.25 mg 01/08/18 17:30 01/10/18 08:25 Coreg PO 6.25 mg BIDWM CRISTAL Administration Carvedilol 12.5 mg 01/10/18 13:46 01/11/18 10:12 Coreg PO 12.5 mg BIDWM CRISTAL Administration Furosemide 40 mg 01/08/18 12:33 01/08/18 13:04 Lasix 40 Mg/4 Ml IVP 01/08/18 12:34 40 mg O ONE Administration Furosemide 40 mg 01/10/18 10:00 01/11/18 10:11 Lasix 40 Mg/4 Ml IVP 40 mg Q12HR CRISTAL Administration Piperacillin Sod/Tazobactam 100 mls @ 200 mls/hr 01/08/18 18:00 01/09/18 11: 34 Sod 3.375 gm/ Sodium Chloride IV Infused Q8H CRISTAL Infusion Sodium Chloride 1,000 mls @ 75 mls/hr 01/09/18 09:15 01/10/18 04:25 Normal Saline IV Infused .[id number] CRISTAL Infusion Lactated Ringer's 1,000 mls @ 100 mls/hr 01/10/18 04:30 01/10/18 14:14 Lactated Ringers IV Infused .Q10H CRISTAL Infusion Vancomycin HCl 1,500 mg/ 500 mls @ 250 mls/hr 01/10/18 13:00 01/10/18 16:00 Sodium Chloride IV 01/10/18 14:59 Infused O ONE Infusion Prednisone 5 mg 01/09/18 08:00 01/11/18 10:12 Deltasone 5 Mg PO 5 mg WB CRISTAL Administration Sodium Chloride 4 ml 01/10/18 17:00 01/11/18 00:53 Hyper-Brant AEROSOL 4 ml Q8HR CRISTAL Administration Vancomycin HCl 1 each 01/10/18 10:51 01/10/18 11:33 Pharmacy Consult - Vancomycin 01/10/18 10:52 Not Given O ONE - Constitutional no acute distress, obese, cooperative - Routine HEENT Exam Head: Present: normocephalic, atraumatic Eye: Present: EOMI, PERRL - Routine Neck Exam Present: supple, full ROM, trachea midline - Routine Respiratory Exam Present: decreased breath sounds, crackles. Absent: accessory muscle use, patient mechanically ventilated - Routine Cardiovascular Exam Present: RRR, S1, S2 - Routine Abdominal Exam Present: soft, normoactive bowel sounds - Routine Extremities Exam Present: no edema, non tender, full ROM - Routine Back/Spine/Pelvis Exam Back/Spine: Present: full ROM - Routine Skin Exam Present: intact, dry - Routine Neurological Exam Present: alert, oriented X3, CN II-XII intact - Routine Psychiatric Exam Present: normal affect, normal thought process Results - Laboratory Findings Laboratory: Laboratory Results - last 48 hr 01/11/18 01/11/18 01/12/18 04:39 04:39 04:08 WBC 14.9 H RBC 3.81 L Hgb 11.1 L Hct 35.0 L MCV 91.9 MCH 29.1 MCHC 31.7 RDW Std Deviation 45.8 Plt Count 227 MPV 8.6 L Immature Gran % (Auto) 0.3 Neut % (Auto) 72.3 H Lymph % (Auto) 16.8 L [place] % (Auto) 8.3 Eos % (Auto) 2.2 Baso % (Auto) 0.1 Neut # (Auto) 10.7 H Lymph # (Auto) 2.5 [place] # (Auto) 1.2 H Eos # (Auto) 0.3 Baso # (Auto) 0.0 Abs Immat Gran (auto) 0.05 H Turbidity < 20 < 20 Sodium 146 H 145 H Potassium 3.7 4.0 Chloride 106 104 Carbon Dioxide 32 H 29 Anion Gap 8 12 BUN 23.0 H 31.0 H Creatinine 2.1 H D 1.9 H D GFR Calculation 31 34 BUN/Creatinine Ratio 11 16 Glucose 124 H 139 H Calculated Osmolality 286 H 288 H Calcium 8.4 8.1 L Total Bilirubin 1.20 Icterus Index < 2 < 2 AST 40 ALT 37 Alkaline Phosphatase 77 Total Protein 6.3 Albumin 3.1 L Globulin 3.2 Albumin/Globulin Ratio 1.0 L Specimen Hemolysis < 15 45 H 01/12/18 04:08 WBC 10.6 RBC 3.83 L Hgb 11.2 L Hct 35.3 L MCV 92.2 MCH 29.2 MCHC 31.7 RDW Std Deviation 45.7 Plt Count 229 MPV 8.8 L Immature Gran % (Auto) 0.3 Neut % (Auto) 84.4 H Lymph % (Auto) 12.0 L [place] % (Auto) 3.1 Eos % (Auto) 0.1 Baso % (Auto) 0.1 Neut # (Auto) 9.0 H Lymph # (Auto) 1.3 [place] # (Auto) 0.3 Eos # (Auto) 0.0 Baso # (Auto) 0.0 Abs Immat Gran (auto) 0.03 Turbidity Sodium Potassium Chloride Carbon Dioxide Anion Gap BUN Creatinine GFR Calculation BUN/Creatinine Ratio Glucose Calculated Osmolality Calcium Total Bilirubin Icterus Index AST ALT Alkaline Phosphatase Total Protein Albumin Globulin Albumin/Globulin Ratio Specimen Hemolysis Assessment and Plan - Assessment and Plan Acute on chronic hypoxemic respiratory failure pulmonary fibrosis, unclear etiology Pseudomonas pneumonia Plan: Pt currently on bipap f14, 16/5, Vt 550. Continues on BT's with A/A q4hr and pulmicort BID with prednisone 50mg daily. On Zosyn/vanco for pna along with 3% q8hr. Will continue to follow CXR. Per Hoda's note: His HRCT shows ground glass opacities and reticular markings with some honeycombing but less architectural distortion than one would normally see in UIP/IPF. The atypical presentation of his case required surgical lung biopsy for accurate diagnosis, and unfortunately the patient is not willing to undergo that procedure. Previously has had prolonged prednisone use without benefit. - Time Spent With Patient Total time spent is greater than 50% in coordination of care (as documented) at patient's floor/unit and/or counseling patient: less than 15 minutes
[2018-01-12] MEDS: ASPIRIN *EC* 81 MG TABLET PO SCH (10:02)
[2018-01-12] MEDS: FINASTERIDE 5 MG TABLET PO SCH (10:02)
[2018-01-12] MEDS: MULTI-VITAMIN PLAIN TABLET PO SCH (10:03)
[2018-01-12] MEDS: POLYETHYL GLYCOL 3350 17gm PACKET PO SCH (10:03)
[2018-01-12] MEDS: FUROSEMIDE 40 MG TABLET PO SCH ×3 (10:03→17:43)
[2018-01-12] MEDS: CARVEDILOL 25 MG TABLET PO SCH ×2 (10:04→17:35)
[2018-01-12] MEDS: SALINE FLUSH 10ml SYRINGE IVF PRN (10:04)
[2018-01-12] MEDS: SODIUM CL 7% INHAL. SOLN 4ml NEB AEROSOL SCH (10:06)
--- NOTE | 2018-01-12 12:49 | Cardiology Progress Note ---
<Chely Cano - Last Filed: 01/12/18 15:44> Subjective Principal diagnosis: SOA, CHF Interval history: Jaime is seen in follow up for SOA and DCHF, his son is at he bedside. His heart rate is improved, mostly 70-80s with increased Coreg. He is tolerating it well, remains on Bi-Pap. He denies chest pain, palpitations or other complaints. Exam Vital signs: Temperature 95.8 F L 01/12/18 11:26 Pulse Rate 72 01/12/18 11:26 Respiratory Rate 27 H 01/12/18 11:53 Blood Pressure 123/72 01/12/18 11:26 Pulse Oximetry 93 01/12/18 11:53 Inpatient Medications: Generic Name Dose Route Start Last Admin Trade Name Freq PRN Reason Stop Dose Admin Acetaminophen 650 mg 01/08/18 15:19 Tylenol PO Q5H PRN Discomfort Albuterol/Ipratropium 3 ml 01/08/18 20:00 01/12/18 11:49 Duoneb AEROSOL 3 ml Q4HR CRISTAL Administration Albuterol/Ipratropium 3 ml 01/08/18 16:36 01/11/18 08:18 Duoneb AEROSOL 3 ml PRN PRN Administration Aspirin 81 mg 01/09/18 09:00 01/12/18 10:02 Ecotrin PO 81 mg DAILY CRISTAL Administration Atorvastatin Calcium 40 mg 01/08/18 21:00 01/11/18 21:54 Lipitor PO 40 mg HS CRISTAL Administration Budesonide 0.5 mg 01/08/18 19:00 01/12/18 07:52 Pulmicort Inhalation AEROSOL 0.5 mg RTBID CRISTAL Administration Carvedilol 25 mg 01/11/18 17:30 01/12/18 10:04 Coreg PO 25 mg BIDWM CRISTAL Administration Finasteride 5 mg 01/09/18 09:00 01/12/18 10:02 Proscar PO 5 mg DAILY CRISTAL Administration Furosemide 40 mg 01/12/18 09:00 01/12/18 10:03 Lasix 40 Mg Tab PO 40 mg 0900,1700 CRISTAL Administration Piperacillin Sod/Tazobactam 100 mls @ 200 mls/hr 01/09/18 17:00 01/12/18 10: 35 Sod 2.25 gm/ Sodium Chloride IV Infused Q6H CRISTAL Infusion Vancomycin HCl 1,250 mg/ 250 mls @ 200 mls/hr 01/11/18 13:00 01/11/18 14:45 Sodium Chloride IV Infused 1300 CRISTAL Infusion Lorazepam 0.5 mg 01/11/18 16:40 Ativan Inj IVP Q4H PRN Anxiety/Air hunger/Agitation Magnesium Hydroxide 30 ml 01/08/18 15:19 Mom PO DAILY PRN Constipation Morphine Sulfate 1 - 2 mg 01/08/18 15:19 01/10/18 04:48 Morphine Sulfate Inj IVP 2 mg Q2H PRN Administration Pain Multivitamins 1 tab 01/09/18 09:00 01/12/18 10:03 Theragran PO 1 tab DAILY CRISTAL Administration Ondansetron HCl 4 mg 01/08/18 15:19 Zofran IVP Q6H PRN Nausea &/or vomiting Polyethylene Glycol 17 gm 01/09/18 09:00 01/12/18 10:03 Miralax PO 17 gm DAILY CRISTAL Administration Prednisone 50 mg 01/11/18 16:45 01/12/18 10:03 Deltasone 50 Mg PO 50 mg DAILY CRISTAL Administration Senna/Docusate Sodium 1 tab 01/08/18 15:19 01/11/18 10:12 Senna Plus Tablet PO 1 tab BID PRN Administration Constipation Sodium Chloride 10 - 80 ml 01/08/18 12:27 01/12/18 10:04 Iv Flush IVF 10 ml PRN PRN Administration Flushing Sodium Chloride 500 ml 01/08/18 18:49 01/10/18 23:51 Normal Saline IV 500 ml PRN PRN Administration Sodium Chloride 3 ml 01/11/18 10:00 01/12/18 10:14 Sodium Chloride 3% Inhal AEROSOL 3 ml Q8HR CRISTAL Administration Discontinued Medications Generic Name Dose Route Start Last Admin Trade Name Freq PRN Reason Stop Dose Admin Carvedilol 6.25 mg 01/08/18 17:30 01/10/18 08:25 Coreg PO 6.25 mg BIDWM CRISTAL Administration Carvedilol 12.5 mg 01/10/18 13:46 01/11/18 10:12 Coreg PO 12.5 mg BIDWM CRISTAL Administration Furosemide 40 mg 01/08/18 12:33 01/08/18 13:04 Lasix 40 Mg/4 Ml IVP 01/08/18 12:34 40 mg O ONE Administration Furosemide 40 mg 01/10/18 10:00 01/11/18 10:11 Lasix 40 Mg/4 Ml IVP 40 mg Q12HR CRISTAL Administration Piperacillin Sod/Tazobactam 100 mls @ 200 mls/hr 01/08/18 18:00 01/09/18 11: 34 Sod 3.375 gm/ Sodium Chloride IV Infused Q8H CRISTAL Infusion Sodium Chloride 1,000 mls @ 75 mls/hr 01/09/18 09:15 01/10/18 04:25 Normal Saline IV Infused .[id number] CRISTAL Infusion Lactated Ringer's 1,000 mls @ 100 mls/hr 01/10/18 04:30 01/10/18 14:14 Lactated Ringers IV Infused .Q10H CRISTAL Infusion Vancomycin HCl 1,500 mg/ 500 mls @ 250 mls/hr 01/10/18 13:00 01/10/18 16:00 Sodium Chloride IV 01/10/18 14:59 Infused O ONE Infusion Prednisone 5 mg 01/09/18 08:00 01/11/18 10:12 Deltasone 5 Mg PO 5 mg WB CRISTAL Administration Sodium Chloride 4 ml 01/10/18 17:00 01/12/18 10:06 Hyper-Brant AEROSOL Not Given Q8HR CRISTAL Vancomycin HCl 1 each 01/10/18 10:51 01/10/18 11:33 Pharmacy Consult - Vancomycin MC 01/10/18 10:52 Not Given O ONE - Constitutional no acute distress, well nourished, cooperative - Routine HEENT Exam Head: Present: normocephalic ENT: Present: mucous membranes dry - Routine Neck Exam Absent: JVD, carotid bruit - Routine Chest/Breast/Axilla Exam Chest wall: Absent: tenderness - Routine Respiratory Exam Present: decreased breath sounds, crackles. Absent: dyspnea, CTA bilaterally - Routine Cardiovascular Exam Present: RRR, no murmur, rubs - Routine Abdominal Exam Present: soft, non tender - Routine Extremities Exam Present: edema - Routine Skin Exam Present: intact, dry, warm - Routine Neurological Exam Present: alert - Routine Psychiatric Exam Present: normal affect Results 01/12/18 04:08 01/12/18 04:08 CBC 01/12/18 Range/Units 04:08 WBC 10.6 (4.5-11.0) T/MM3 RBC 3.83 L (4.50-5.90) M/MM3 Hgb 11.2 L (13.5-17.5) GM/DL Hct 35.3 L (41-53) % Plt Count 229 (130-400) T/MM3 Neut # (Auto) 9.0 H (1.8-7.7) T/MM3 Lymph # (Auto) 1.3 (1-4.8) T/MM3 [place] # (Auto) 0.3 (0-0.8) T/MM3 Eos # (Auto) 0.0 (0-0.5) T/MM3 Baso # (Auto) 0.0 (0-0.2) T/MM3 Comprehensive Metabolic Panel 01/12/18 Range/Units 04:08 Sodium 145 H (134-144) MEQ/L Potassium 4.0 (3.6-5) MEQ/L Chloride 104 (98-107) MEQ/L Carbon Dioxide 29 (22-30) MEQ/L BUN 31.0 H (9-20) MG/DL Creatinine 1.9 H D (0.8-1.5) mg/dL Glucose 139 H (75-110) MG/DL Calcium 8.1 L (8.4-10.2) MG/DL Intake and Output 01/11/18 01/12/18 01/12/18 22:59 06:59 14:59 Intake Total 220 / 220 300 / 300 100 / 100 Output Total 400 / 400 350 / 350 Balance -180 / -180 -50 / -50 100 / 100 Intake: IV 100 / 100 200 / 200 100 / 100 Piperacillin/Tazobactam 2.25 gm 100 / 100 200 / 200 100 / 100 In Ns 100 ml @ 200 mls/hr IV Q6H [facility] Rx#:[id number] Oral 120 / 120 100 / 100 Output: Urine 400 / 400 350 / 350 Other: Urine Appearance Clear Clear Urine Color Yellow Dark Yellow Urine Odor Normal Stool Color Brown Stool Consistency Soft Size of Bowel Movement Large # Voids 1 # Bowel Movements 1 Weight 225 lb 8.526 oz Patient Weight 01/13/18 06:59 Weight 225 lb 8.526 oz Assessment and Plan - Assessment and Plan (1) Acute and chronic respiratory failure Status: Acute (2) 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 Dr. Reena Dean -On aspirin, statin and BB - serial troponin negative CHF - grade 1 diastolic dysfunction - EF 40-45%, mild MR/TR. - Repeat 2 D echo - BNP CKD: Recent AMELIA - SCr increased to 3.06 on 01/02/18. - stage 3 - baseline SCr 1.3-1.6. -Follow renal function HLD: -On Atorvastatin Thank you for allowing us to participate in the care of this patient. 01/10/18 CHF: EF 45% on echo - PAP 65mmHg - Lasix 40mg IV q12h for diuresis - Monitor renal and electrolytes - Increase Coreg for better HR 01/11/18 Increase Coreg to 25mg as HR remains low 100s Change Lasix to 40mg po BID, DC IV Lasix 01/12/18 HR controlled with Coreg 25mg BID - BUN/ SCr 31/1.9, improving - BNP 8010 - CXR now Hospital Course Summary Disclaimer: The visit summary below is not to be considered part of the above Progress Note. Hospital Course: Plan - 01/08/18: Patient admitted to observation status under the care of Dr. Beaver. Concern for SIRS/sepsis, though no infection identified. Suspect pulmonary source. Initiate zosyn IV for empiric pulmonary coverage. Lasix 40mg IV x 1 dose given in ED due to concern for fluid overload. Weight up 1 kg in 1 week. Monitor urinary output closely as well as daily weight. Given persistent leukocytosis with respiratory failure, will obtain blood cultures as well as sputum culture. Sputum culture on 12/24/17 revealed pseudomonas aeruginosa which was treated with Cefepime while inpatient and Levaquin as outpatient - course complete. Initial lactate 1.8. Troponin 0.079 and BNP 2370. Will monitor serial troponins and lactates. Will monitor closely on telemetry with continuous pulse oximetry. Supplemental oxygen as needed to maintain SAO2 >90%. Baseline on 4L NC at home. Will consult pulmonology given history of pulmonary fibrosis. Continue home prednisone 5mg daily. Initiate DuoNeb treatments as well as Pulmicort. Incentive spirometry. SCr elevated compared to baseline at 1.9. 1.99 on 01/06/18. Continue to monitor closely. Recheck labs in AM to monitor blood counts, electrolytes and renal function. Upon discharge, his care will be returned to his PCP at the [facility]. He requests to be a FULL CODE. Plan - 01/09/18: Continued increased oxygen demand, elevated renal function and Continued concern for SIRS/sepsis, though no infection identified. Suspect pulmonary source. Continue zosyn IV for empiric pulmonary coverage (day 2). Blood and sputum cultures pending. Slight increase in SCr to 2.0 (up from 1.9). Lasix 40mg IV x 1 dose given in ED prior to admission. Urinary output adequate. Continue to monitor urinary output closely. Hypernatremia with slight increase in Na to 148. Patient appears clinical dry. Will initiate NS 75cc/hr for gentle hydration. Sputum culture on 12/24/17 revealed pseudomonas aeruginosa which was treated with Cefepime while inpatient and Levaquin as outpatient - course complete. Initial lactate 1.8 - decreased to 1.6. Troponin 0.079, 0.089, 0.105, 0.106, 0.098. Will consult cardiology given recent CABG and persistent tachycardia. Will monitor closely on telemetry with continuous pulse oximetry. Supplemental oxygen as needed to maintain SAO2 >90%. Baseline on 4L NC at home. Wean as able. Continues to have increased oxygen demands. Will consult pulmonology given history of pulmonary fibrosis. Continue home prednisone 5mg daily. Initiate DuoNeb treatments as well as Pulmicort. Incentive spirometry. Continue respiratory cares. Recheck labs in AM to monitor blood counts, electrolytes and renal function. <Mina Riley - Last Filed: 01/18/18 15:06> Exam Vital signs: Temperature 97.0 F 01/17/18 15:22 Pulse Rate 71 01/17/18 16:00 Respiratory Rate 16 01/17/18 08:00 Blood Pressure 103/65 01/17/18 15:22 Pulse Oximetry 96 01/17/18 15:22 Inpatient Medications: Discontinued Medications Generic Name Dose Route Start Last Admin Trade Name Freq PRN Reason Stop Dose Admin Acetaminophen 650 mg 01/08/18 15:19 Tylenol PO Q5H PRN Discomfort Albuterol/Ipratropium 3 ml 01/08/18 20:00 01/15/18 08:24 Duoneb AEROSOL 3 ml Q4HR CRISTAL Administration Albuterol/Ipratropium 3 ml 01/08/18 16:36 01/11/18 08:18 Duoneb AEROSOL 3 ml PRN PRN Administration Albuterol/Ipratropium 3 ml 01/15/18 13:00 01/16/18 11:35 Duoneb AEROSOL 3 ml QID CRISTAL Administration Aspirin 81 mg 01/09/18 09:00 01/17/18 09:05 Ecotrin PO 81 mg DAILY CRISTAL Administration Atorvastatin Calcium 40 mg 01/08/18 21:00 01/16/18 20:02 Lipitor PO 40 mg HS CRISTAL Administration Budesonide 0.5 mg 01/08/18 19:00 01/16/18 07:15 Pulmicort Inhalation AEROSOL 0.5 mg RTBID CRISTAL Administration Carvedilol 6.25 mg 01/08/18 17:30 01/10/18 08:25 Coreg PO 6.25 mg BIDWM CRISTAL Administration Carvedilol 12.5 mg 01/10/18 13:46 01/11/18 10:12 Coreg PO 12.5 mg BIDWM CRITSAL Administration Carvedilol 25 mg 01/11/18 17:30 01/17/18 17:46 Coreg PO 25 mg BIDWM CRISTAL Administration Finasteride 5 mg 01/09/18 09:00 01/17/18 09:05 Proscar PO 5 mg DAILY CRISTAL Administration Furosemide 40 mg 01/08/18 12:33 01/08/18 13:04 Lasix 40 Mg/4 Ml IVP 01/08/18 12:34 40 mg O ONE Administration Furosemide 40 mg 01/10/18 10:00 01/11/18 10:11 Lasix 40 Mg/4 Ml IVP 40 mg Q12HR CRISTAL Administration Furosemide 40 mg 01/12/18 09:00 01/12/18 16:15 Lasix 40 Mg Tab PO 40 mg 0900,1700 CRISTAL Administration Furosemide 80 mg 01/12/18 17:15 01/13/18 01:54 Lasix 40 Mg Tab PO 80 mg Q8H CRISTAL Administration Furosemide 80 mg 01/13/18 09:00 01/14/18 10:29 Lasix 100 Mg/10 Ml IVP 80 mg Q8HR CRISTAL Administration Furosemide 40 mg 01/14/18 21:00 01/14/18 23:05 Lasix 40 Mg/4 Ml IVP 40 mg Q12HR CRISTAL Administration Furosemide 40 mg 01/16/18 09:00 01/17/18 09:04 Lasix 40 Mg/4 Ml IVP 40 mg DAILY CRISTAL Administration Piperacillin Sod/Tazobactam 100 mls @ 200 mls/hr 01/08/18 18:00 01/09/18 11: 34 Sod 3.375 gm/ Sodium Chloride IV Infused Q8H CRISTAL Infusion Sodium Chloride 1,000 mls @ 75 mls/hr 01/09/18 09:15 01/10/18 04:25 Normal Saline IV Infused .[id number] CRISTAL Infusion Piperacillin Sod/Tazobactam 100 mls @ 200 mls/hr 01/09/18 17:00 01/16/18 11: 55 Sod 2.25 gm/ Sodium Chloride IV Infused Q6H CRISTAL Infusion Lactated Ringer's 1,000 mls @ 100 mls/hr 01/10/18 04:30 01/10/18 14:14 Lactated Ringers IV Infused .Q10H CRISTAL Infusion Vancomycin HCl 1,500 mg/ 500 mls @ 250 mls/hr 01/10/18 13:00 01/10/18 16:00 Sodium Chloride IV 01/10/18 14:59 Infused O ONE Infusion Vancomycin HCl 1,250 mg/ 250 mls @ 200 mls/hr 01/11/18 13:00 01/13/18 14:12 Sodium Chloride IV Not Given 1300 CRISTAL Vancomycin HCl 1,750 mg/ 500 mls @ 250 mls/hr 01/13/18 13:00 01/14/18 17:12 Sodium Chloride IV Infused Q24HR CRISTAL Infusion Vancomycin HCl 1,000 mg/ 250 mls @ 250 mls/hr 01/16/18 06:00 01/16/18 07:00 Sodium Chloride IV Infused Q24H CRISTAL Infusion Lorazepam 0.5 mg 01/11/18 16:40 Ativan Inj IVP Q4H PRN Anxiety/Air hunger/Agitation Magnesium Hydroxide 30 ml 01/08/18 15:19 Mom PO DAILY PRN Constipation Metolazone 5 mg 01/13/18 09:00 01/14/18 11:54 Zaroxolyn PO Not Given DAILY CRISTAL Morphine Sulfate 1 - 2 mg 01/08/18 15:19 01/10/18 04:48 Morphine Sulfate Inj IVP 2 mg Q2H PRN Administration Pain Multivitamins 1 tab 01/09/18 09:00 01/17/18 09:05 Theragran PO 1 tab DAILY CRISTAL Administration Ondansetron HCl 4 mg 01/08/18 15:19 Zofran IVP Q6H PRN Nausea &/or vomiting Polyethylene Glycol 17 gm 01/09/18 09:00 01/17/18 09:04 Miralax PO 17 gm DAILY CRISTAL Administration Potassium Chloride 20 meq 01/14/18 06:03 01/14/18 06:09 K-Dur 20 Meq Tablet PO 20 meq BIDWM CRISTAL Administration Potassium Chloride 40 meq 01/14/18 11:45 01/14/18 23:02 K-Dur 20 Meq Tablet PO 01/14/18 19:46 40 meq Q4H CRISTAL Administration Potassium Chloride 40 meq 01/16/18 14:15 01/16/18 15:51 K-Dur 20 Meq Tablet PO 01/16/18 14:16 40 meq O ONE Administration Potassium Chloride 40 meq 01/17/18 08:17 01/17/18 09:04 K-Dur 20 Meq Tablet PO 01/17/18 08:18 40 meq O ONE Administration Prednisone 5 mg 01/09/18 08:00 01/11/18 10:12 Deltasone 5 Mg PO 5 mg WB CRISTAL Administration Prednisone 50 mg 01/11/18 16:45 01/13/18 09:42 Deltasone 50 Mg PO 50 mg DAILY CRISTAL Administration Prednisone 50 mg 01/14/18 08:00 01/15/18 11:02 Deltasone 50 Mg PO 01/16/18 08:00 Not Given WB CRISTAL Prednisone 40 mg 01/15/18 10:45 01/17/18 09:05 Deltasone 20 Mg PO 40 mg WB CRISTAL Administration Senna/Docusate Sodium 1 tab 01/08/18 15:19 01/11/18 10:12 Senna Plus Tablet PO 1 tab BID PRN Administration Constipation Sodium Chloride 10 - 80 ml 01/08/18 12:27 01/13/18 13:32 Iv Flush IVF 30 ml PRN PRN Administration Flushing Sodium Chloride 500 ml 01/08/18 18:49 01/13/18 11:57 Normal Saline IV 500 ml PRN PRN Administration Sodium Chloride 4 ml 01/10/18 17:00 01/12/18 10:06 Hyper-Brant AEROSOL Not Given Q8HR CRISTAL Sodium Chloride 3 ml 01/11/18 10:00 01/16/18 12:59 Sodium Chloride 3% Inhal AEROSOL Not Given Q8HR CRISTAL Sodium Chloride 2 spray 01/12/18 17:05 01/17/18 17:46 [place] Nasal Moisturizing Semora EA NOSTRIL 2 spray QID CRISTAL Administration Vancomycin HCl 1 each 01/10/18 10:51 01/10/18 11:33 Pharmacy Consult - Vancomycin MC 01/10/18 10:52 Not Given O ONE Results 01/16/18 05:10 01/17/18 07:44 Assessment and Plan - Assessment and Plan (1) Congestive heart failure Status: Chronic (2) Acute and chronic respiratory failure Status: Acute (3) 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 I am involved in the formulation of the patient's plan of care. Hospital Course Summary Disclaimer: The visit summary below is not to be considered part of the above Progress Note.
--- NOTE | 2018-01-12 16:21 | XRay Report ---
Indication: chf PROCEDURE: XR chest 1V: Encounter: Initial Comparison: Chest x-ray and chest CT dated January 09, 2018 Findings: Severe emphysema is again noted. Patchy interstitial and airspace opacities are noted in both lungs, similar to the prior study. Many of these may be chronic although superimposed acute edema or infiltrate cannot be excluded. No obvious pleural effusion. No pneumothorax. Prior sternotomy. Heart size and mediastinal contours are grossly stable. Impression: Abnormal chest with a complex constellation of findings including emphysema, fibrosis and a probable superimposed acute process that may be due to edema or infection/inflammation. .
--- NOTE | 2018-01-12 16:56 | Progress Note ---
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 Feeling a little better today. Breathing slightly easier. Encourage that was able to transition from BiPAP to High flow O2 this afternoon. Not feeling too tired or worn out from not using BiPAP. Little cough, rare brown sputum. Denies pain with breathing. No chest pressure or discomfort. No having nausea. Appetite fair-eating routinely. Did pass LARGE stool yesterday. Urine stable. Objective Vital signs: Temperature 96.3 F L 01/12/18 16:13 Pulse Rate 79 01/12/18 16:13 Respiratory Rate 22 01/12/18 16:13 Blood Pressure 133/75 01/12/18 16:13 Pulse Oximetry 95 01/12/18 16:13 Rhythm: Sinus Tachycardia Height/Weight/BMI: Weight 102.3 kg - Constitutional Present: well nourished, well developed, average body habitus, cooperative - Routine HEENT Exam Head: Present: normocephalic, atraumatic Eye: Present: EOMI, PERRL ENT: Present: mucous membranes moist - Routine Respiratory Exam Present: decreased breath sounds, diminished air movement. Absent: rales, rhonchi, wheezes, crackles - Routine Cardiovascular Exam Present: RRR, no murmur - Routine Abdominal Exam Present: soft, normoactive bowel sounds, non distended, non tender, guarding - Routine Extremities Exam Present: no edema, pulses intact. Absent: cyanosis, clubbing - Routine Musculoskeletal Exam Musculoskeletal: Present: no clubbing or cyanosis - Routine Skin Exam Present: dry, warm - Routine Neurological Exam Present: alert, oriented X3, CN II-XII intact, moving all extremities, vision grossly intact, hearing grossly intact, normal speech. 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 Recent AMELIA - SCr increased to 3.06 on 01/02/18. Chronic kidney disease, stage 3 - baseline SCr 1.3-1.6 Hyperlipidemia BPH GERD Former tobaccoism Obesity - BMI >30 Plan Continue with Zosyn (Day 5) and Vancomycin (Day 3) for pulmonary coverage. Able to transition from BiPAP to high flow O2 - Have BiPAP available as needed. Will place consult for PT/OT to help with improving functional status and activities. HR and BP stable with current CV medications. Creatinine stable at 1.9. Check BMP and Mg in am due to medication use. Will check CBC in am secondary to pneumonia. Case discussed with CM and patient's sons. Time spent with patient care 25 minutes. DVT Prophylaxis: SCD's Resuscitation Status: Full Code - Time spent with patient Time with patient PN: 25 minutes - Physician Narrative Physician: Remigio Coleman MD Narrative: Date: 01/12/18 Time: 165 Hospital Course Summary Disclaimer: The visit summary below is not to be considered part of the above Progress Note. Hospital Course: 01/08/18 OBS Patient admitted to observation status under the care of Dr. Beaver. Concern for SIRS/sepsis, though no infection identified. Suspect pulmonary source. Initiate zosyn IV for empiric pulmonary coverage. Lasix 40mg IV x 1 dose given in ED due to concern for fluid overload. Weight up 1 kg in 1 week. Monitor urinary output closely as well as daily weight. Given persistent leukocytosis with respiratory failure, will obtain blood cultures as well as sputum culture. Sputum culture on 12/24/17 revealed pseudomonas aeruginosa which was treated with Cefepime while inpatient and Levaquin as outpatient - course complete. Initial lactate 1.8. Troponin 0.079 and BNP 2370. Will monitor serial troponins and lactates. Will monitor closely on telemetry with continuous pulse oximetry. Supplemental oxygen as needed to maintain SAO2 >90%. Baseline on 4L NC at home. Will consult pulmonology given history of pulmonary fibrosis. Continue home prednisone 5mg daily. Initiate DuoNeb treatments as well as Pulmicort. Incentive spirometry. SCr elevated compared to baseline at 1.9. 1.99 on 01/06/18. Continue to monitor closely. Recheck labs in AM to monitor blood counts, electrolytes and renal function. Upon discharge, his care will be returned to his PCP at the [facility]. He requests to be a FULL CODE. 01/09/18 With continued increased need for oxygen above and beyond baseline, coupled with pneumonia, will change admission status to inpatient. Continued increased oxygen demand, elevated renal function and white blood count. Suspect pulmonary source - pneumonia. Continue Zosyn IV for empiric pulmonary coverage (day 2). Blood and sputum cultures pending. Slight increase in SCr to 2.0 (up from 1.9). Lasix 40mg IV x 1 dose given in ED prior to admission. Urinary output adequate. Continue to monitor urinary output closely. Hypernatremia with slight increase in Na to 148. Patient appears clinical dry. Will initiate NS 75cc/hr for gentle hydration. Initial lactate 1.8 - decreased to 1.6. Troponin 0.079, 0.089, 0.105, 0.106, 0.098. Will consult cardiology given recent CABG and persistent tachycardia. Will monitor closely on telemetry with continuous pulse oximetry. Supplemental oxygen as needed to maintain SAO2 >90%. Baseline on 4L NC at home. Wean as able. Continues to have increased oxygen demands. Will consult pulmonology given history of pulmonary fibrosis. Continue home prednisone 5mg daily. Initiate DuoNeb treatments as well as Pulmicort. Incentive spirometry. Continue respiratory cares. 01/10/18 Bi-pap started due to increased labored breathing. Continue to monitor renal function and electrolytes. Creatinine decreased to 1.8 today. Continue Zosyn, adding Vancomycin for pulmonary coverage. Continues on chronic home dose of Prednisone. Cardiology increased Coreg to 12.5mg BID and started Lasix 40mg IV BID. Appreciate consultations by Dr. Drummond and Dr. Riley. 01/11/18 Continue with Zosyn (Day 4) and Vancomycin (Day 2) for pulmonary coverage. Will increase Prednisone to 50mg to try to help respiratory status. May have lorazepam 0.5mg IV q 4 hours prn anxiety/air hunger Not having symptoms, but prudent to be available. Continues with BiPAP to help decrease work of breathing Saturations 94-95% on 60% FIO2. Resp rate increased at 25-34. With findings on CT scan, Dr Drummond recommended pulmonary Bx. Patient and family not wanting this procedure. Cardiology increased carvedilol to 25mg due to persistent tachycardic. Lasix change to 40mg po BID - will need to monitor BP/Creatinine due to potential for overdiuresis. CO2 increased to 32. Creatinine 2.1. 01/12/18 Continue with Zosyn (Day 5) and Vancomycin (Day 3) for pulmonary coverage. Able to transition from BiPAP to high flow O2 - Have BiPAP available as needed. Will place consult for PT/OT to help with improving functional status and activities. HR and BP stable with current CV medications. Creatinine stable at 1.9. CO2 with slight decrease to 29
[2018-01-12] MEDS: SALINE 0.65% NASAL SPRAY 44 ML BOTTLE EA NOSTRIL SCH ×2 (17:44→20:39)
[2018-01-12] MEDS: ATORVASTATIN 40 MG TABLET PO SCH (20:40)
[2018-01-13] MEDS: PIPERACILLIN/TAZOBACTAM 2.25 GM in NS 100 ML IV SCH ×5 (00:26→23:52)
[2018-01-13] MEDS: ALBUTEROL/IPRATROPIUM 2.5mg-0.5mg/3ml NEB AEROSOL SCH ×6 (00:38→19:35)
[2018-01-13] MEDS: SODIUM CL 3% INHAL.SOLN 15ml NEB AEROSOL SCH ×4 (00:38→19:34)
[2018-01-13] MEDS: FUROSEMIDE 40 MG TABLET PO SCH (01:54)
[2018-01-13] MEDS: BUDESONIDE INH.SOLN 0.5mg/2ml NEB AEROSOL SCH ×2 (07:56→19:35)
[2018-01-13] MEDS: FUROSEMIDE 100 MG/10 ML INJECTION IVP SCH ×2 (09:41→17:11)
[2018-01-13] MEDS: MULTI-VITAMIN PLAIN TABLET PO SCH (09:42)
[2018-01-13] MEDS: FINASTERIDE 5 MG TABLET PO SCH (09:42)
[2018-01-13] MEDS: ASPIRIN *EC* 81 MG TABLET PO SCH (09:42)
[2018-01-13] MEDS: POLYETHYL GLYCOL 3350 17gm PACKET PO SCH (09:43)
[2018-01-13] MEDS: CARVEDILOL 25 MG TABLET PO SCH ×2 (09:43→17:11)
[2018-01-13] MEDS: SALINE 0.65% NASAL SPRAY 44 ML BOTTLE EA NOSTRIL SCH ×4 (09:44→20:38)
[2018-01-13] MEDS: NS FLUSH BAG 500ml IV PRN (11:57)
[2018-01-13] MEDS: SALINE FLUSH 10ml SYRINGE IVF PRN ×2 (11:58→13:32)
--- NOTE | 2018-01-13 12:50 | Pulmonology Progress Note ---
Subjective Principal diagnosis: SOA, CHF Interval history: Pt in bed on 7L states his breathing is a little better today. + cough with more clear sputum noted today. Exam Vital signs: Temperature 96 F L 01/13/18 08:35 Pulse Rate 78 01/13/18 08:35 Respiratory Rate 20 01/13/18 11:00 Blood Pressure 120/77 01/13/18 08:35 Pulse Oximetry 96 01/13/18 11:00 Inpatient Medications: Generic Name Dose Route Start Last Admin Trade Name Freq PRN Reason Stop Dose Admin Acetaminophen 650 mg 01/08/18 15:19 Tylenol PO Q5H PRN Discomfort Albuterol/Ipratropium 3 ml 01/08/18 20:00 01/13/18 11:37 Duoneb AEROSOL 3 ml Q4HR CRISTAL Administration Albuterol/Ipratropium 3 ml 01/08/18 16:36 01/11/18 08:18 Duoneb AEROSOL 3 ml PRN PRN Administration Aspirin 81 mg 01/09/18 09:00 01/13/18 09:42 Ecotrin PO 81 mg DAILY CRISTAL Administration Atorvastatin Calcium 40 mg 01/08/18 21:00 01/12/18 20:40 Lipitor PO 40 mg HS CRISTAL Administration Budesonide 0.5 mg 01/08/18 19:00 01/13/18 07:56 Pulmicort Inhalation AEROSOL 0.5 mg RTBID CRISTAL Administration Carvedilol 25 mg 01/11/18 17:30 01/13/18 09:43 Coreg PO 25 mg BIDWM CRISTAL Administration Finasteride 5 mg 01/09/18 09:00 01/13/18 09:42 Proscar PO 5 mg DAILY CRISTAL Administration Furosemide 80 mg 01/13/18 09:00 01/13/18 09:41 Lasix 100 Mg/10 Ml IVP 80 mg Q8HR CRISTAL Administration Piperacillin Sod/Tazobactam 100 mls @ 200 mls/hr 01/09/18 17:00 01/13/18 11: 58 Sod 2.25 gm/ Sodium Chloride IV 200 mls/hr Q6H CRISTAL Administration Vancomycin HCl 1,250 mg/ 250 mls @ 200 mls/hr 01/11/18 13:00 01/12/18 16:15 Sodium Chloride IV Infused 1300 CRISTAL Infusion Lorazepam 0.5 mg 01/11/18 16:40 Ativan Inj IVP Q4H PRN Anxiety/Air hunger/Agitation Magnesium Hydroxide 30 ml 01/08/18 15:19 Mom PO DAILY PRN Constipation Metolazone 5 mg 01/13/18 09:00 01/13/18 09:42 Zaroxolyn PO 5 mg DAILY CRISTAL Administration Morphine Sulfate 1 - 2 mg 01/08/18 15:19 01/10/18 04:48 Morphine Sulfate Inj IVP 2 mg Q2H PRN Administration Pain Multivitamins 1 tab 01/09/18 09:00 01/13/18 09:42 Theragran PO 1 tab DAILY CRISTAL Administration Ondansetron HCl 4 mg 01/08/18 15:19 Zofran IVP Q6H PRN Nausea &/or vomiting Polyethylene Glycol 17 gm 01/09/18 09:00 01/13/18 09:43 Miralax PO 17 gm DAILY CRISTAL Administration Prednisone 50 mg 01/14/18 08:00 Deltasone 50 Mg PO WB CRISTAL Senna/Docusate Sodium 1 tab 01/08/18 15:19 01/11/18 10:12 Senna Plus Tablet PO 1 tab BID PRN Administration Constipation Sodium Chloride 10 - 80 ml 01/08/18 12:27 01/13/18 11:58 Iv Flush IVF 10 ml PRN PRN Administration Flushing Sodium Chloride 500 ml 01/08/18 18:49 01/13/18 11:57 Normal Saline IV 500 ml PRN PRN Administration Sodium Chloride 3 ml 01/11/18 10:00 01/13/18 11:37 Sodium Chloride 3% Inhal AEROSOL 3 ml Q8HR CRISTAL Administration Sodium Chloride 2 spray 01/12/18 17:05 01/13/18 09:44 Deep Sea Nasal Moisturizing [place] EA NOSTRIL 2 spray QID CRISTAL Administration Discontinued Medications Generic Name Dose Route Start Last Admin Trade Name Freq PRN Reason Stop Dose Admin Carvedilol 6.25 mg 01/08/18 17:30 01/10/18 08:25 Coreg PO 6.25 mg BIDWM CRISTAL Administration Carvedilol 12.5 mg 01/10/18 13:46 01/11/18 10:12 Coreg PO 12.5 mg BIDWM CRISTAL Administration Furosemide 40 mg 01/08/18 12:33 01/08/18 13:04 Lasix 40 Mg/4 Ml IVP 01/08/18 12:34 40 mg O ONE Administration Furosemide 40 mg 01/10/18 10:00 01/11/18 10:11 Lasix 40 Mg/4 Ml IVP 40 mg Q12HR CRISTAL Administration Furosemide 40 mg 01/12/18 09:00 01/12/18 16:15 Lasix 40 Mg Tab PO 40 mg 0900,1700 CRISTAL Administration Furosemide 80 mg 01/12/18 17:15 01/13/18 01:54 Lasix 40 Mg Tab PO 80 mg Q8H CRISTAL Administration Piperacillin Sod/Tazobactam 100 mls @ 200 mls/hr 01/08/18 18:00 01/09/18 11: 34 Sod 3.375 gm/ Sodium Chloride IV Infused Q8H CRISTAL Infusion Sodium Chloride 1,000 mls @ 75 mls/hr 01/09/18 09:15 01/10/18 04:25 Normal Saline IV Infused .[id number] CRISTAL Infusion Lactated Ringer's 1,000 mls @ 100 mls/hr 01/10/18 04:30 01/10/18 14:14 Lactated Ringers IV Infused .Q10H CRISTAL Infusion Vancomycin HCl 1,500 mg/ 500 mls @ 250 mls/hr 01/10/18 13:00 01/10/18 16:00 Sodium Chloride IV 01/10/18 14:59 Infused O ONE Infusion Prednisone 5 mg 01/09/18 08:00 01/11/18 10:12 Deltasone 5 Mg PO 5 mg WB CRISTAL Administration Prednisone 50 mg 01/11/18 16:45 01/13/18 09:42 Deltasone 50 Mg PO 50 mg DAILY CRISTAL Administration Sodium Chloride 4 ml 01/10/18 17:00 01/12/18 10:06 Hyper-Brant AEROSOL Not Given Q8HR CRISTAL Vancomycin HCl 1 each 01/10/18 10:51 01/10/18 11:33 Pharmacy Consult - Vancomycin MC 01/10/18 10:52 Not Given O ONE - Constitutional no acute distress, obese, cooperative - Routine HEENT Exam Head: Present: normocephalic, atraumatic Eye: Present: EOMI, PERRL - Routine Neck Exam Present: supple, full ROM, trachea midline - Routine Respiratory Exam Present: decreased breath sounds, crackles. Absent: patient mechanically ventilated - Routine Cardiovascular Exam Present: RRR, S1, S2, no murmur - Routine Abdominal Exam Present: soft, normoactive bowel sounds - Routine Extremities Exam Present: clubbing, no edema, non tender, full ROM. Absent: cyanosis - Routine Back/Spine/Pelvis Exam Back/Spine: Present: full ROM - Routine Skin Exam Present: intact, dry - Routine Neurological Exam Present: alert, oriented X3, CN II-XII intact - Routine Psychiatric Exam Present: normal affect, normal thought process, cooperative, good judgment Results - Laboratory Findings Laboratory: Laboratory Results - last 48 hr 01/12/18 01/12/18 01/12/18 04:07 04:08 04:08 WBC 10.6 RBC 3.83 L Hgb 11.2 L Hct 35.3 L MCV 92.2 MCH 29.2 MCHC 31.7 RDW Std Deviation 45.7 Plt Count 229 MPV 8.8 L Immature Gran % (Auto) 0.3 Neut % (Auto) 84.4 H Lymph % (Auto) 12.0 L Roane % (Auto) 3.1 Eos % (Auto) 0.1 Baso % (Auto) 0.1 Neut # (Auto) 9.0 H Lymph # (Auto) 1.3 [place] # (Auto) 0.3 Eos # (Auto) 0.0 Baso # (Auto) 0.0 Abs Immat Gran (auto) 0.03 Turbidity < 20 Sodium 145 H Potassium 4.0 Chloride 104 Carbon Dioxide 29 Anion Gap 12 BUN 31.0 H Creatinine 1.9 H D GFR Calculation 34 BUN/Creatinine Ratio 16 Glucose 139 H Calculated Osmolality 288 H Calcium 8.1 L Magnesium Icterus Index < 2 NT-Pro-B Natriuret Pep 8010 H Specimen Hemolysis 45 H 01/13/18 01/13/18 04:16 04:16 WBC 14.4 H RBC 3.77 L Hgb 11.0 L Hct 34.3 L MCV 91.0 MCH 29.2 MCHC 32.1 RDW Std Deviation 43.7 Plt Count 237 MPV 8.7 L Immature Gran % (Auto) 0.1 Neut % (Auto) 81.3 H Lymph % (Auto) 11.8 L Ro[place] % (Auto) 6.6 Eos % (Auto) 0.1 Baso % (Auto) 0.1 Neut # (Auto) 11.7 H Lymph # (Auto) 1.7 Roane # (Auto) 1.0 H Eos # (Auto) 0.0 Baso # (Auto) 0.0 Abs Immat Gran (auto) 0.02 Turbidity < 20 Sodium 143 Potassium 3.5 L Chloride 104 Carbon Dioxide 29 Anion Gap 10 BUN 36.0 H Creatinine 1.9 H GFR Calculation 34 BUN/Creatinine Ratio 19 Glucose 136 H Calculated Osmolality 285 H Calcium 8.1 L Magnesium 2.0 Icterus Index < 2 NT-Pro-B Natriuret Pep Specimen Hemolysis < 15 - Diagnostic Findings Chest x-ray: image reviewed (Poor inspiratory effort, cont with diffuse interstitial infiltrates but appears worse) Assessment and Plan - Assessment and Plan Acute on chronic hypoxemic respiratory failure pulmonary fibrosis, unclear etiology Pseudomonas pneumonia Plan: Pt currently on 7L per HFNC, otherwise on bipap f14, 16/5, Vt 550. Continues on BT's with A/A q4hr and pulmicort BID with prednisone 50mg daily. On Zosyn/vanco for pna along with 3% q8hr. CXR with worsening interstitial infiltrates, ProBNP doubled to 8,000, diuresis increased to lasix 80mg q8hr and metolazone 5mg daily. follow labs and UOP along with CXR. Per Hoda's note: His HRCT shows ground glass opacities and reticular markings with some honeycombing but less architectural distortion than one would normally see in UIP/IPF. The atypical presentation of his case required surgical lung biopsy for accurate diagnosis, and unfortunately the patient is not willing to undergo that procedure. Previously has had prolonged prednisone use without benefit. - Time Spent With Patient Total time spent is greater than 50% in coordination of care (as documented) at patient's floor/unit and/or counseling patient: less than 15 minutes
--- NOTE | 2018-01-13 13:18 | Pharmacy Consult-Antibiotics ---
Pharmacy Consult-Vancomycin - Laboratory Information WBC 14.4 T/MM3 (4.5-11.0) H 01/13/18 04:16 BUN 36.0 MG/DL (9-20) H 01/13/18 04:16 Creatinine 1.9 mg/dL (0.8-1.5) H 01/13/18 04:16 Procalcitonin 0.08 NG/ML 01/08/18 17:07 Vancomycin Trough 12.98 ug/mL (15-20) L 01/13/18 12:38 VANCOMYCIN THERAPY: DAY 5 Received Vancomycin LOADING DOSE of 1500mg, the Vancomycin 1250mg IV q24hrs, secondary to impaired renal fx. Vancomycin Trough = 12.98 mcg/ml Target Trough = 15-20mcg/ml Will increase Vanco to 1750mg IV q24hrs, starting with dose today. Renal fx remains impaired, but seems stable at impaired level. Will watch levels closely and adjust regimen as needed. Thank you.
--- NOTE | 2018-01-13 13:45 | Progress Note ---
- Date 01/13/18 Subjective: Feeling better today but still very short of air. Discussed increasing his diuretics and he is agreeable. No acute events overnight. Appetite a little better today. Son at bedside with appropriate questions. Objective Vital signs: Temperature 97.4 F 01/13/18 13:01 Pulse Rate 79 01/13/18 13:01 Respiratory Rate 22 01/13/18 13:01 Blood Pressure 121/71 01/13/18 13:01 Pulse Oximetry 98 01/13/18 13:01 Rhythm: Sinus Tachycardia Height/Weight/BMI: Weight 104 kg - Constitutional Present: no acute distress, well nourished, well developed, obese - Routine HEENT Exam Head: Present: normocephalic Eye: Present: PERRL ENT: Present: mucous membranes moist, oropharynx clear - Routine Respiratory Exam Present: decreased breath sounds, rales, wheezes - Routine Cardiovascular Exam Present: RRR. Absent: murmur Comments: sternal incision healing well without drainage or erythema - Routine Abdominal Exam Present: soft, non distended, non tender - Routine Extremities Exam Present: edema (trace BLE) - Routine Skin Exam Present: dry, warm. Absent: rash Comments: healing sternal incision as above - Routine Neurological Exam Present: alert, oriented X3, vision grossly intact, hearing grossly intact, normal speech - Routine Psychiatric Exam Present: normal affect, normal thought process Results - Labs CBC & Chem 7: 01/13/18 04:16 01/13/18 04:16 Microbiology Results: Microbiology 01/09/18 23:25 Sputum, Expectorated Gram Stain - Final 01/09/18 23:25 Sputum, Expectorated Sputum Culture - Final Kalyani albicans Normal Respiratory Lilia - Impressions CXR this AM reviewed by me with bilateral effusions and pulm edema Assessment and Plan Assessment and Plan: Assessment Pneumonia 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 Recent AMELIA - SCr increased to 3.06 on 01/02/18. Chronic kidney disease, stage 3 - baseline SCr 1.3-1.6 Hyperlipidemia BPH GERD Former tobaccoism Obesity - BMI >30 Plan Continue with Zosyn (Day 6) and Vancomycin (Day 4) for pulmonary coverage. Continue to use high flow 02 and bipap prn. Work with PT today to determine functional status and recommendations for post- DC care. Continue current meds but change lasix to IV 80 mg Q8H today and monitor I/O. Add metolazone 5 mg daily today and assess response. Renal panel, Mg, CBC in AM for surveillance of electrolytes with diuretics and assessment of WBC. HR and BP stable with current CV medications. Creatinine stable at 1.9; monitor with more aggressive diuresis. Case discussed with the patient and his son at bedside. DVT Prophylaxis: Lovenox Resuscitation Status: Full Code - Physician Narrative Narrative: Date: 01/13/18 Time: 1342 Hospital Course Summary Disclaimer: The visit summary below is not to be considered part of the above Progress Note. Hospital Course: 01/08/18 OBS Patient admitted to observation status under the care of Dr. Beaver. Concern for SIRS/sepsis, though no infection identified. Suspect pulmonary source. Initiate zosyn IV for empiric pulmonary coverage. Lasix 40mg IV x 1 dose given in ED due to concern for fluid overload. Weight up 1 kg in 1 week. Monitor urinary output closely as well as daily weight. Given persistent leukocytosis with respiratory failure, will obtain blood cultures as well as sputum culture. Sputum culture on 12/24/17 revealed pseudomonas aeruginosa which was treated with Cefepime while inpatient and Levaquin as outpatient - course complete. Initial lactate 1.8. Troponin 0.079 and BNP 2370. Will monitor serial troponins and lactates. Will monitor closely on telemetry with continuous pulse oximetry. Supplemental oxygen as needed to maintain SAO2 >90%. Baseline on 4L NC at home. Will consult pulmonology given history of pulmonary fibrosis. Continue home prednisone 5mg daily. Initiate DuoNeb treatments as well as Pulmicort. Incentive spirometry. SCr elevated compared to baseline at 1.9. 1.99 on 01/06/18. Continue to monitor closely. Recheck labs in AM to monitor blood counts, electrolytes and renal function. Upon discharge, his care will be returned to his PCP at the [facility]. He requests to be a FULL CODE. 01/09/18 With continued increased need for oxygen above and beyond baseline, coupled with pneumonia, will change admission status to inpatient. Continued increased oxygen demand, elevated renal function and white blood count. Suspect pulmonary source - pneumonia. Continue Zosyn IV for empiric pulmonary coverage (day 2). Blood and sputum cultures pending. Slight increase in SCr to 2.0 (up from 1.9). Lasix 40mg IV x 1 dose given in ED prior to admission. Urinary output adequate. Continue to monitor urinary output closely. Hypernatremia with slight increase in Na to 148. Patient appears clinical dry. Will initiate NS 75cc/hr for gentle hydration. Initial lactate 1.8 - decreased to 1.6. Troponin 0.079, 0.089, 0.105, 0.106, 0.098. Will consult cardiology given recent CABG and persistent tachycardia. Will monitor closely on telemetry with continuous pulse oximetry. Supplemental oxygen as needed to maintain SAO2 >90%. Baseline on 4L NC at home. Wean as able. Continues to have increased oxygen demands. Will consult pulmonology given history of pulmonary fibrosis. Continue home prednisone 5mg daily. Initiate DuoNeb treatments as well as Pulmicort. Incentive spirometry. Continue respiratory cares. 01/10/18 Bi-pap started due to increased labored breathing. Continue to monitor renal function and electrolytes. Creatinine decreased to 1.8 today. Continue Zosyn, adding Vancomycin for pulmonary coverage. Continues on chronic home dose of Prednisone. Cardiology increased Coreg to 12.5mg BID and started Lasix 40mg IV BID. Appreciate consultations by Dr. Drummond and Dr. Riley. 01/11/18 Continue with Zosyn (Day 4) and Vancomycin (Day 2) for pulmonary coverage. Will increase Prednisone to 50mg to try to help respiratory status. May have lorazepam 0.5mg IV q 4 hours prn anxiety/air hunger Not having symptoms, but prudent to be available. Continues with BiPAP to help decrease work of breathing Saturations 94-95% on 60% FIO2. Resp rate increased at 25-34. With findings on CT scan, Dr Drummond recommended pulmonary Bx. Patient and family not wanting this procedure. Cardiology increased carvedilol to 25mg due to persistent tachycardic. Lasix change to 40mg po BID - will need to monitor BP/Creatinine due to potential for overdiuresis. CO2 increased to 32. Creatinine 2.1. 01/12/18 Continue with Zosyn (Day 5) and Vancomycin (Day 3) for pulmonary coverage. Able to transition from BiPAP to high flow O2 - Have BiPAP available as needed. Will place consult for PT/OT to help with improving functional status and activities. HR and BP stable with current CV medications. Creatinine stable at 1.9. CO2 with slight decrease to 29 01/13/18 Continue with Zosyn (Day 6) and Vancomycin (Day 4) for pulmonary coverage. Continue to use high flow 02 and bipap prn. Work with PT today to determine functional status and recommendations for post- DC care. Continue current meds but change lasix to IV 80 mg Q8H today and monitor I/O. Add metolazone 5 mg daily today and assess response. Renal panel, Mg, CBC in AM for surveillance of electrolytes with diuretics and assessment of WBC. HR and BP stable with current CV medications. Creatinine stable at 1.9; monitor with more aggressive diuresis.
[2018-01-13] MEDS: ATORVASTATIN 40 MG TABLET PO SCH (20:37)
[2018-01-14] MEDS: FUROSEMIDE 100 MG/10 ML INJECTION IVP SCH ×2 (00:37→10:29)
[2018-01-14] MEDS: SODIUM CL 3% INHAL.SOLN 15ml NEB AEROSOL SCH ×4 (00:44→23:18)
[2018-01-14] MEDS: ALBUTEROL/IPRATROPIUM 2.5mg-0.5mg/3ml NEB AEROSOL SCH ×7 (00:45→23:18)
[2018-01-14] MEDS: PIPERACILLIN/TAZOBACTAM 2.25 GM in NS 100 ML IV SCH ×3 (04:30→19:00)
--- NOTE | 2018-01-14 09:35 | XRay Report ---
Indication: pna PROCEDURE: XR chest 1V: Encounter: Initial Comparison: January 12, 2018 Findings: Lungs are hypoinflated. Continued airspace disease in the left mid to lower lung field may be slightly worsened. Elevated right hemidiaphragm. No pneumothorax. Cardiac silhouette is obscured. Mediastinal contours are grossly stable. Prior CABG. Impression: Worsening hypoinflation and left basilar airspace disease. .
--- NOTE | 2018-01-14 09:43 | XRay Report ---
INDICATION: infiltrates/edema PROCEDURE: CHEST 2-VIEWS UPRIGHT (PA & LAT) Encounter: Initial COMPARISON: January 13, 2018 FINDINGS: Continued severe airspace consolidation in the left lower lobe with moderate airspace infiltrate in the right lower lobe. Small effusions. No pneumothorax. Heart size and mediastinal contours are stable. Pulmonary vascularity is indistinct. Impression: Overall stable bilateral basilar infiltrates. .
[2018-01-14] MEDS: CARVEDILOL 25 MG TABLET PO SCH ×2 (10:28→19:01)
[2018-01-14] MEDS: ASPIRIN *EC* 81 MG TABLET PO SCH (10:28)
[2018-01-14] MEDS: MULTI-VITAMIN PLAIN TABLET PO SCH (10:28)
[2018-01-14] MEDS: FINASTERIDE 5 MG TABLET PO SCH (10:28)
[2018-01-14] MEDS: POLYETHYL GLYCOL 3350 17gm PACKET PO SCH (10:29)
[2018-01-14] MEDS: SALINE 0.65% NASAL SPRAY 44 ML BOTTLE EA NOSTRIL SCH ×4 (10:30→23:04)
[2018-01-14] MEDS: BUDESONIDE INH.SOLN 0.5mg/2ml NEB AEROSOL SCH ×2 (11:10→19:10)
--- NOTE | 2018-01-14 13:57 | Progress Note ---
- Date 01/14/18 Subjective: Feeling better today, down to 5L high flow 02. Good appetite. Tolerating po potassium as his UOP has been robust (almost 5 liters) and K now low. Visiting with family, no complaints currently. Objective Vital signs: Temperature 96.5 F L 01/14/18 08:00 Pulse Rate 80 01/14/18 08:00 Respiratory Rate 20 01/14/18 11:21 Blood Pressure 100/64 01/14/18 08:00 Pulse Oximetry 98 01/14/18 11:21 Rhythm: Normal Sinus Rhythm Height/Weight/BMI: Weight 101.4 kg - Constitutional Present: no acute distress, well nourished, well developed, obese - Routine HEENT Exam Head: Present: normocephalic, atraumatic Eye: Present: PERRL. Absent: conjunctival icterus ENT: Present: mucous membranes moist, oropharynx clear - Routine Respiratory Exam Present: decreased breath sounds, wheezes. Absent: rales - Routine Cardiovascular Exam Present: RRR. Absent: murmur - Routine Abdominal Exam Present: soft, non distended, non tender - Routine Extremities Exam Present: no edema, normal capillary refill - Routine Musculoskeletal Exam Musculoskeletal: Present: no tenderness, no erythema - Routine Skin Exam Present: dry, warm. Absent: rash - Routine Neurological Exam Present: alert, oriented X3, normal speech - Routine Psychiatric Exam Present: normal affect, normal thought process Results - Labs CBC & Chem 7: 01/14/18 04:23 01/14/18 04:23 Microbiology Results: Microbiology 01/09/18 23:25 Sputum, Expectorated Gram Stain - Final 01/09/18 23:25 Sputum, Expectorated Sputum Culture - Final Kalyani albicans Normal Respiratory Lilia - Impressions Date of Exam: 01/14/18 Ordering Provider: Marisel Villegas APRN Type of Exam(s): XR chest 2V Reason for Exam(s): infiltrates/edema INDICATION: infiltrates/edema PROCEDURE: CHEST 2-VIEWS UPRIGHT (PA & LAT) Encounter: Initial COMPARISON: January 13, 2018 FINDINGS: Continued severe airspace consolidation in the left lower lobe with moderate airspace infiltrate in the right lower lobe. Small effusions. No pneumothorax. Heart size and mediastinal contours are stable. Pulmonary vascularity is indistinct. Impression: Overall stable bilateral basilar infiltrates. 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 Recent AMELIA - SCr increased to 3.06 on 01/02/18. Chronic kidney disease, stage 3 - baseline SCr 1.3-1.6 Hyperlipidemia BPH GERD Former tobaccoism Obesity - BMI >30 Hypokalemia Plan Continue with Zosyn (Day 7) and Vancomycin (Day 5) for pulmonary coverage; may be able to stop tomorrow if still improving Continue to use high flow 02 and bipap prn; wean 02 as tolerated Work with PT to determine functional status and recommendations for post-DC care. Decrease lasix to 40 mg IV Q12H today Hold further metolazone Continue daily weights and strict I/Os Replete potassium po 120 meq and monitor recheck Renal panel, Mg, CBC in AM for surveillance of electrolytes with diuretics and assessment of WBC. HR and BP stable with current CV medications. Creatinine stable at 2.1; monitor with more aggressive diuresis, has some prerenal azotemia but within his chronic range and he will do better from a pulm standpoint if he is kept on the dry side. Case discussed with the patient and family at bedside. DVT Prophylaxis: SCD's Resuscitation Status: Full Code - Physician Narrative Narrative: Date: 01/14/18 Time: 1352 Hospital Course Summary Disclaimer: The visit summary below is not to be considered part of the above Progress Note. Hospital Course: 01/08/18 OBS Patient admitted to observation status under the care of Dr. Beaver. Concern for SIRS/sepsis, though no infection identified. Suspect pulmonary source. Initiate zosyn IV for empiric pulmonary coverage. Lasix 40mg IV x 1 dose given in ED due to concern for fluid overload. Weight up 1 kg in 1 week. Monitor urinary output closely as well as daily weight. Given persistent leukocytosis with respiratory failure, will obtain blood cultures as well as sputum culture. Sputum culture on 12/24/17 revealed pseudomonas aeruginosa which was treated with Cefepime while inpatient and Levaquin as outpatient - course complete. Initial lactate 1.8. Troponin 0.079 and BNP 2370. Will monitor serial troponins and lactates. Will monitor closely on telemetry with continuous pulse oximetry. Supplemental oxygen as needed to maintain SAO2 >90%. Baseline on 4L NC at home. Will consult pulmonology given history of pulmonary fibrosis. Continue home prednisone 5mg daily. Initiate DuoNeb treatments as well as Pulmicort. Incentive spirometry. SCr elevated compared to baseline at 1.9. 1.99 on 01/06/18. Continue to monitor closely. Recheck labs in AM to monitor blood counts, electrolytes and renal function. Upon discharge, his care will be returned to his PCP at the [facility]. He requests to be a FULL CODE. 01/09/18 With continued increased need for oxygen above and beyond baseline, coupled with pneumonia, will change admission status to inpatient. Continued increased oxygen demand, elevated renal function and white blood count. Suspect pulmonary source - pneumonia. Continue Zosyn IV for empiric pulmonary coverage (day 2). Blood and sputum cultures pending. Slight increase in SCr to 2.0 (up from 1.9). Lasix 40mg IV x 1 dose given in ED prior to admission. Urinary output adequate. Continue to monitor urinary output closely. Hypernatremia with slight increase in Na to 148. Patient appears clinical dry. Will initiate NS 75cc/hr for gentle hydration. Initial lactate 1.8 - decreased to 1.6. Troponin 0.079, 0.089, 0.105, 0.106, 0.098. Will consult cardiology given recent CABG and persistent tachycardia. Will monitor closely on telemetry with continuous pulse oximetry. Supplemental oxygen as needed to maintain SAO2 >90%. Baseline on 4L NC at home. Wean as able. Continues to have increased oxygen demands. Will consult pulmonology given history of pulmonary fibrosis. Continue home prednisone 5mg daily. Initiate DuoNeb treatments as well as Pulmicort. Incentive spirometry. Continue respiratory cares. 01/10/18 Bi-pap started due to increased labored breathing. Continue to monitor renal function and electrolytes. Creatinine decreased to 1.8 today. Continue Zosyn, adding Vancomycin for pulmonary coverage. Continues on chronic home dose of Prednisone. Cardiology increased Coreg to 12.5mg BID and started Lasix 40mg IV BID. Appreciate consultations by Dr. Drummond and Dr. Riley. 01/11/18 Continue with Zosyn (Day 4) and Vancomycin (Day 2) for pulmonary coverage. Will increase Prednisone to 50mg to try to help respiratory status. May have lorazepam 0.5mg IV q 4 hours prn anxiety/air hunger Not having symptoms, but prudent to be available. Continues with BiPAP to help decrease work of breathing Saturations 94-95% on 60% FIO2. Resp rate increased at 25-34. With findings on CT scan, Dr Drummond recommended pulmonary Bx. Patient and family not wanting this procedure. Cardiology increased carvedilol to 25mg due to persistent tachycardic. Lasix change to 40mg po BID - will need to monitor BP/Creatinine due to potential for overdiuresis. CO2 increased to 32. Creatinine 2.1. 01/12/18 Continue with Zosyn (Day 5) and Vancomycin (Day 3) for pulmonary coverage. Able to transition from BiPAP to high flow O2 - Have BiPAP available as needed. Will place consult for PT/OT to help with improving functional status and activities. HR and BP stable with current CV medications. Creatinine stable at 1.9. CO2 with slight decrease to 29 01/13/18 Continue with Zosyn (Day 6) and Vancomycin (Day 4) for pulmonary coverage. Continue to use high flow 02 and bipap prn. Work with PT today to determine functional status and recommendations for post- DC care. Continue current meds but change lasix to IV 80 mg Q8H today and monitor I/O. Add metolazone 5 mg daily today and assess response. Renal panel, Mg, CBC in AM for surveillance of electrolytes with diuretics and assessment of WBC. HR and BP stable with current CV medications. Creatinine stable at 1.9; monitor with more aggressive diuresis. 01/14/18 Continue with Zosyn (Day 7) and Vancomycin (Day 5) for pulmonary coverage; may be able to stop tomorrow if still improving Continue to use high flow 02 and bipap prn; wean 02 as tolerated Work with PT to determine functional status and recommendations for post-DC care. Decrease lasix to 40 mg IV Q12H today Hold further metolazone Continue daily weights and strict I/Os Replete potassium po 120 meq and monitor recheck Renal panel, Mg, CBC in AM for surveillance of electrolytes with diuretics and assessment of WBC. HR and BP stable with current CV medications. Creatinine stable at 2.1; monitor with more aggressive diuresis, has some prerenal azotemia but within his chronic range and he will do better from a pulm standpoint if he is kept on the dry side.
[2018-01-14] MEDS ORDERED: FUROSEMIDE 40 MG/4 ML INJECTION IVP SCH (21:00)
[2018-01-14] MEDS: ATORVASTATIN 40 MG TABLET PO SCH (23:03)
[2018-01-15] MEDS: PIPERACILLIN/TAZOBACTAM 2.25 GM in NS 100 ML IV SCH ×5 (00:01→23:25)
[2018-01-15] MEDS: ALBUTEROL/IPRATROPIUM 2.5mg-0.5mg/3ml NEB AEROSOL SCH ×5 (04:39→19:23)
[2018-01-15] MEDS: BUDESONIDE INH.SOLN 0.5mg/2ml NEB AEROSOL SCH ×2 (08:24→19:23)
--- NOTE | 2018-01-15 09:31 | Pulmonology Progress Note ---
Subjective Principal diagnosis: SOA, CHF Interval history: Pt in bed on 3L HFNC, farideh well. States he is basically back to norm. Minimal cough and sputum noted, minimal SOB noted. Exam Vital signs: Temperature 97.9 F 01/15/18 07:30 Pulse Rate 68 01/15/18 07:30 Respiratory Rate 20 01/15/18 08:24 Blood Pressure 103/65 01/15/18 07:30 Pulse Oximetry 97 01/15/18 08:24 Inpatient Medications: Generic Name Dose Route Start Last Admin Trade Name Freq PRN Reason Stop Dose Admin Acetaminophen 650 mg 01/08/18 15:19 Tylenol PO Q5H PRN Discomfort Albuterol/Ipratropium 3 ml 01/08/18 20:00 01/15/18 08:24 Duoneb AEROSOL 3 ml Q4HR CRISTAL Administration Albuterol/Ipratropium 3 ml 01/08/18 16:36 01/11/18 08:18 Duoneb AEROSOL 3 ml PRN PRN Administration Aspirin 81 mg 01/09/18 09:00 01/14/18 10:28 Ecotrin PO 81 mg DAILY CRISTAL Administration Atorvastatin Calcium 40 mg 01/08/18 21:00 01/14/18 23:03 Lipitor PO 40 mg HS CRISTAL Administration Budesonide 0.5 mg 01/08/18 19:00 01/15/18 08:24 Pulmicort Inhalation AEROSOL 0.5 mg RTBID CRISTAL Administration Carvedilol 25 mg 01/11/18 17:30 01/14/18 19:01 Coreg PO 25 mg BIDWM CRISTAL Administration Finasteride 5 mg 01/09/18 09:00 01/14/18 10:28 Proscar PO 5 mg DAILY CRISTAL Administration Furosemide 40 mg 01/14/18 21:00 01/14/18 23:05 Lasix 40 Mg/4 Ml IVP 40 mg Q12HR CRISTAL Administration Piperacillin Sod/Tazobactam 100 mls @ 200 mls/hr 01/09/18 17:00 01/15/18 00: 01 Sod 2.25 gm/ Sodium Chloride IV 200 mls/hr Q6H CRISTAL Administration Vancomycin HCl 1,750 mg/ 500 mls @ 250 mls/hr 01/13/18 13:00 01/14/18 17:12 Sodium Chloride IV Infused Q24HR CRISTAL Infusion Lorazepam 0.5 mg 01/11/18 16:40 Ativan Inj IVP Q4H PRN Anxiety/Air hunger/Agitation Magnesium Hydroxide 30 ml 01/08/18 15:19 Mom PO DAILY PRN Constipation Multivitamins 1 tab 01/09/18 09:00 01/14/18 10:28 Theragran PO 1 tab DAILY CRISTAL Administration Ondansetron HCl 4 mg 01/08/18 15:19 Zofran IVP Q6H PRN Nausea &/or vomiting Polyethylene Glycol 17 gm 01/09/18 09:00 01/14/18 10:29 Miralax PO Not Given DAILY CRISTAL Prednisone 50 mg 01/14/18 08:00 01/14/18 10:28 Deltasone 50 Mg PO 50 mg WB CRISTAL Administration Senna/Docusate Sodium 1 tab 01/08/18 15:19 01/11/18 10:12 Senna Plus Tablet PO 1 tab BID PRN Administration Constipation Sodium Chloride 10 - 80 ml 01/08/18 12:27 01/13/18 13:32 Iv Flush IVF 30 ml PRN PRN Administration Flushing Sodium Chloride 500 ml 01/08/18 18:49 01/13/18 11:57 Normal Saline IV 500 ml PRN PRN Administration Sodium Chloride 3 ml 01/11/18 10:00 01/14/18 23:18 Sodium Chloride 3% Inhal AEROSOL 3 ml Q8HR CRISTAL Administration Sodium Chloride 2 spray 01/12/18 17:05 01/14/18 23:04 [place] Nasal Moisturizing [place] EA NOSTRIL 2 spray QID CRISTAL Administration Discontinued Medications Generic Name Dose Route Start Last Admin Trade Name Freq PRN Reason Stop Dose Admin Carvedilol 6.25 mg 01/08/18 17:30 01/10/18 08:25 Coreg PO 6.25 mg BIDWM CRISTAL Administration Carvedilol 12.5 mg 01/10/18 13:46 01/11/18 10:12 Coreg PO 12.5 mg BIDWM CRISTAL Administration Furosemide 40 mg 01/08/18 12:33 01/08/18 13:04 Lasix 40 Mg/4 Ml IVP 01/08/18 12:34 40 mg O ONE Administration Furosemide 40 mg 01/10/18 10:00 01/11/18 10:11 Lasix 40 Mg/4 Ml IVP 40 mg Q12HR CRISTAL Administration Furosemide 40 mg 01/12/18 09:00 01/12/18 16:15 Lasix 40 Mg Tab PO 40 mg 0900,1700 CRISTAL Administration Furosemide 80 mg 01/12/18 17:15 01/13/18 01:54 Lasix 40 Mg Tab PO 80 mg Q8H CRISTAL Administration Furosemide 80 mg 01/13/18 09:00 01/14/18 10:29 Lasix 100 Mg/10 Ml IVP 80 mg Q8HR CRISTAL Administration Piperacillin Sod/Tazobactam 100 mls @ 200 mls/hr 01/08/18 18:00 01/09/18 11: 34 Sod 3.375 gm/ Sodium Chloride IV Infused Q8H CRISTAL Infusion Sodium Chloride 1,000 mls @ 75 mls/hr 01/09/18 09:15 01/10/18 04:25 Normal Saline IV Infused .[id number] CRISTAL Infusion Lactated Ringer's 1,000 mls @ 100 mls/hr 01/10/18 04:30 01/10/18 14:14 Lactated Ringers IV Infused .Q10H CRISTAL Infusion Vancomycin HCl 1,500 mg/ 500 mls @ 250 mls/hr 01/10/18 13:00 01/10/18 16:00 Sodium Chloride IV 01/10/18 14:59 Infused O ONE Infusion Vancomycin HCl 1,250 mg/ 250 mls @ 200 mls/hr 01/11/18 13:00 01/13/18 14:12 Sodium Chloride IV Not Given 1300 [facility] Metolazone 5 mg 01/13/18 09:00 01/14/18 11:54 Zaroxolyn PO Not Given DAILY [facility] Morphine Sulfate 1 - 2 mg 01/08/18 15:19 01/10/18 04:48 Morphine Sulfate Inj IVP 2 mg Q2H PRN Administration Pain Potassium Chloride 20 meq 01/14/18 06:03 01/14/18 06:09 K-Dur 20 Meq Tablet PO 20 meq BIDWM CRISTAL Administration Potassium Chloride 40 meq 01/14/18 11:45 01/14/18 23:02 K-Dur 20 Meq Tablet PO 01/14/18 19:46 40 meq Q4H CRISTAL Administration Prednisone 5 mg 01/09/18 08:00 01/11/18 10:12 Deltasone 5 Mg PO 5 mg WB CRISTAL Administration Prednisone 50 mg 01/11/18 16:45 01/13/18 09:42 Deltasone 50 Mg PO 50 mg DAILY CRISTAL Administration Sodium Chloride 4 ml 01/10/18 17:00 01/12/18 10:06 Hyper-Brant AEROSOL Not Given Q8HR [facility] Vancomycin HCl 1 each 01/10/18 10:51 01/10/18 11:33 Pharmacy Consult - Vancomycin 01/10/18 10:52 Not Given O ONE - Constitutional no acute distress, average body habitus, cooperative - Routine HEENT Exam Head: Present: normocephalic, atraumatic Eye: Present: EOMI, PERRL - Routine Neck Exam Present: supple, full ROM, trachea midline - Routine Respiratory Exam Present: crackles. Absent: accessory muscle use, patient mechanically ventilated - Routine Cardiovascular Exam Present: RRR, S1, S2, no murmur - Routine Abdominal Exam Present: soft, normoactive bowel sounds - Routine Extremities Exam Present: clubbing, no edema, non tender, full ROM. Absent: cyanosis - Routine Back/Spine/Pelvis Exam Back/Spine: Present: full ROM - Routine Skin Exam Present: intact, dry - Routine Neurological Exam Present: alert, oriented X3, CN II-XII intact - Routine Psychiatric Exam Present: normal affect, normal thought process Results - Laboratory Findings Laboratory: Laboratory Results - last 48 hr 01/13/18 01/14/18 01/14/18 12:38 04:23 04:23 WBC 15.3 H RBC 4.15 L Hgb 12.2 L Hct 36.9 L MCV 88.9 MCH 29.4 MCHC 33.1 RDW Std Deviation 42.3 Plt Count 251 MPV 8.7 L Turbidity < 20 Sodium 142 Potassium 2.8 L* D Chloride 94 L D Carbon Dioxide 35 H Anion Gap 13 BUN 41.0 H Creatinine 2.1 H D GFR Calculation 31 BUN/Creatinine Ratio 20 Glucose 146 H Calculated Osmolality 286 H Calcium 8.6 Phosphorus 4.5 Magnesium 1.9 Icterus Index < 2 Albumin 3.4 L Specimen Hemolysis < 15 Vancomycin Trough 12.98 L 01/15/18 01/15/18 04:18 04:18 WBC 16.4 H RBC 4.08 L Hgb 11.9 L Hct 36.5 L MCV 89.5 MCH 29.2 MCHC 32.6 RDW Std Deviation 42.1 Plt Count 232 MPV 8.7 L Turbidity < 20 Sodium 142 Potassium 3.6 D Chloride 92 L Carbon Dioxide 40 H Anion Gap 10 BUN 54.0 H* Creatinine 2.5 H D GFR Calculation 25 BUN/Creatinine Ratio 22 Glucose 160 H Calculated Osmolality 291 H Calcium 8.5 Phosphorus 4.3 Magnesium 2.0 Icterus Index < 2 Albumin 3.3 L Specimen Hemolysis < 15 Vancomycin Trough - Diagnostic Findings Chest x-ray: image reviewed (CXR with much improved congestion.) Assessment and Plan - Assessment and Plan Acute on chronic hypoxemic respiratory failure pulmonary fibrosis, unclear etiology Pseudomonas pneumonia Pulmonary edema AMELIA on CKD - Cr baseline 1.3-1.6 Plan: Pt currently on 3L per HFNC, has not used bipap since 01/12, change to prn. Continues on BT's with A/A change to QID and pulmicort BID with prednisone 50mg daily, will wean to 40mg . On Zosyn/vanco for pna along with 3% q8hr, cultures NTD. Cr up to 2.5, lasix 40mg q12hr, follow lab closely per primary. Per [facility] 's note: His HRCT shows ground glass opacities and reticular markings with some honeycombing but less architectural distortion than one would normally see in UIP/IPF. The atypical presentation of his case required surgical lung biopsy for accurate diagnosis, and unfortunately the patient is not willing to undergo that procedure. Previously has had prolonged prednisone use without benefit. - Time Spent With Patient Total time spent is greater than 50% in coordination of care (as documented) at patient's floor/unit and/or counseling patient: less than 15 minutes
[2018-01-15] MEDS: POLYETHYL GLYCOL 3350 17gm PACKET PO SCH (10:04)
[2018-01-15] MEDS: ASPIRIN *EC* 81 MG TABLET PO SCH (10:04)
[2018-01-15] MEDS: CARVEDILOL 25 MG TABLET PO SCH ×2 (10:04→17:18)
[2018-01-15] MEDS: MULTI-VITAMIN PLAIN TABLET PO SCH (10:04)
[2018-01-15] MEDS: FINASTERIDE 5 MG TABLET PO SCH (10:04)
[2018-01-15] MEDS: SALINE 0.65% NASAL SPRAY 44 ML BOTTLE EA NOSTRIL SCH ×3 (10:05→17:19)
[2018-01-15] MEDS: PredniSONE 20 MG TABLET PO SCH (11:18)
[2018-01-15] MEDS: SODIUM CL 3% INHAL.SOLN 15ml NEB AEROSOL SCH ×2 (12:46→21:37)
--- NOTE | 2018-01-15 15:43 | Progress Note ---
- Date 01/15/18 Subjective: Jaime is seen today in follow up. He is up in the chair on 3 liters of oxygen talking to his son. He reports that overall the last few days. He is feeling much better. He was able to get up and walk with therapy today. He denies having any pain, shortness of breath or GI complaints. Noted blood pressure was slightly on the low side this afternoon 97/65. Objective Vital signs: Temperature 96.5 F L 01/15/18 15:35 Pulse Rate 75 01/15/18 15:35 Respiratory Rate 22 01/15/18 15:35 Blood Pressure 97/65 01/15/18 15:35 Pulse Oximetry 95 01/15/18 15:35 Rhythm: Normal Sinus Rhythm Height/Weight/BMI: Weight 100.7 kg - Constitutional Present: no acute distress, well nourished, well developed - Routine HEENT Exam Eye: Present: EOMI ENT: Present: mucous membranes moist, dentition normal - Routine Respiratory Exam Present: diminished air movement. Absent: wheezes - Routine Cardiovascular Exam Present: RRR, S1, S2. Absent: murmur - Routine Abdominal Exam Present: soft, normoactive bowel sounds, non distended. Absent: tenderness - Routine Extremities Exam Present: no edema - Routine Skin Exam Present: intact, dry, warm - Routine Neurological Exam Present: alert, oriented X3, CN II-XII intact, moving all extremities - Routine Lymphatic Exam Lymphatic: Absent: adenopathy - Routine Psychiatric Exam Present: normal affect, normal thought process, cooperative Results - Labs CBC & Chem 7: 01/15/18 04:18 01/15/18 04:18 Microbiology Results: Microbiology 01/09/18 23:25 Sputum, Expectorated Gram Stain - Final 01/09/18 23:25 Sputum, Expectorated Sputum Culture - Final Kalyani albicans Normal Respiratory Lilia Assessment and Plan Assessment and Plan: Assessment Pneumonia 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 Recent AMELIA - SCr increased to 3.06 on 01/02/18. Chronic kidney disease, stage 3 - baseline SCr 1.3-1.6 Hyperlipidemia BPH GERD Former tobaccoism Obesity - BMI >30 Hypokalemia Plan Continue with Zosyn (Day 8) and Vancomycin (Day 6) for pulmonary coverage; Consider stopping Baseline home oxygen is 4 liters and patient is currently at 3 liters. He does continue to use BiPAP as needed Continue to monitor daily weights and intake and output. Lasix remains on hold. Monitor potassium routinely as this has normalized Creatinine has trended up today to 2.5 suspect prerenal azotemia Recheck CBC, BMP tomorrow am Continue to encourage work with PT and OT for strengthening. Patient does plan to be discharged home with his son at time of discharge 01/15/2018-8 PM-I examined the patient independently. I reviewed this chart, the patient history, and the COMPUTER HELP DESK REPRESENTATIVE's/PA's documented findings as above. We discussed and formulated the assessment and plan as above with the additions below.-Dr. Flanagan The patient was seen this evening in his room. He states he is feeling much better. He denies any shortness of breath. He has an occasional cough when he uses his incentive spirometer. He is not making any sputum. He denies any fevers or chills. He was down to 2 L of oxygen but requested that it increased to 4 L for sleep which is his chronic oxygen dose. On exam. His alert and in no acute distress. Chest is clear to auscultation. Cardiac vascular reveals a regular rate and rhythm. Abdomen is soft and nontender. Extremities are free of edema. Impression and plan Acute on chronic hypoxic respiratory failure-now at baseline oxygenation. Pneumonia, possibly secondary to Pseudomonas-currently on Zosyn and Vanco. Will discuss with consultants tomorrow and possibly discontinue soon. CHF with recent diuresis. Mild acute kidney injury on chronic kidney disease. Lasix was decreased. Repeat basic metabolic profile tomorrow. Idiopathic pulmonary fibrosis Pulmonary hypertension Overall, the patient appears to be improving. Possible dismissal in the next 1- 2 days. - Physician Narrative Narrative: Date: 01/15/18 Time: 9907 Hospital Course Summary Disclaimer: The visit summary below is not to be considered part of the above Progress Note. Hospital Course: 01/08/18 OBS Patient admitted to observation status under the care of Dr. Beaver. Concern for SIRS/sepsis, though no infection identified. Suspect pulmonary source. Initiate zosyn IV for empiric pulmonary coverage. Lasix 40mg IV x 1 dose given in ED due to concern for fluid overload. Weight up 1 kg in 1 week. Monitor urinary output closely as well as daily weight. Given persistent leukocytosis with respiratory failure, will obtain blood cultures as well as sputum culture. Sputum culture on 12/24/17 revealed pseudomonas aeruginosa which was treated with Cefepime while inpatient and Levaquin as outpatient - course complete. Initial lactate 1.8. Troponin 0.079 and BNP 2370. Will monitor serial troponins and lactates. Will monitor closely on telemetry with continuous pulse oximetry. Supplemental oxygen as needed to maintain SAO2 >90%. Baseline on 4L NC at home. Will consult pulmonology given history of pulmonary fibrosis. Continue home prednisone 5mg daily. Initiate DuoNeb treatments as well as Pulmicort. Incentive spirometry. SCr elevated compared to baseline at 1.9. 1.99 on 01/06/18. Continue to monitor closely. Recheck labs in AM to monitor blood counts, electrolytes and renal function. Upon discharge, his care will be returned to his PCP at the [facility]. He requests to be a FULL CODE. 01/09/18 With continued increased need for oxygen above and beyond baseline, coupled with pneumonia, will change admission status to inpatient. Continued increased oxygen demand, elevated renal function and white blood count. Suspect pulmonary source - pneumonia. Continue Zosyn IV for empiric pulmonary coverage (day 2). Blood and sputum cultures pending. Slight increase in SCr to 2.0 (up from 1.9). Lasix 40mg IV x 1 dose given in ED prior to admission. Urinary output adequate. Continue to monitor urinary output closely. Hypernatremia with slight increase in Na to 148. Patient appears clinical dry. Will initiate NS 75cc/hr for gentle hydration. Initial lactate 1.8 - decreased to 1.6. Troponin 0.079, 0.089, 0.105, 0.106, 0.098. Will consult cardiology given recent CABG and persistent tachycardia. Will monitor closely on telemetry with continuous pulse oximetry. Supplemental oxygen as needed to maintain SAO2 >90%. Baseline on 4L NC at home. Wean as able. Continues to have increased oxygen demands. Will consult pulmonology given history of pulmonary fibrosis. Continue home prednisone 5mg daily. Initiate DuoNeb treatments as well as Pulmicort. Incentive spirometry. Continue respiratory cares. 01/10/18 Bi-pap started due to increased labored breathing. Continue to monitor renal function and electrolytes. Creatinine decreased to 1.8 today. Continue Zosyn, adding Vancomycin for pulmonary coverage. Continues on chronic home dose of Prednisone. Cardiology increased Coreg to 12.5mg BID and started Lasix 40mg IV BID. Appreciate consultations by Dr. Drummond and Dr. Riley. 01/11/18 Continue with Zosyn (Day 4) and Vancomycin (Day 2) for pulmonary coverage. Will increase Prednisone to 50mg to try to help respiratory status. May have lorazepam 0.5mg IV q 4 hours prn anxiety/air hunger Not having symptoms, but prudent to be available. Continues with BiPAP to help decrease work of breathing Saturations 94-95% on 60% FIO2. Resp rate increased at 25-34. With findings on CT scan, Dr Drummond recommended pulmonary Bx. Patient and family not wanting this procedure. Cardiology increased carvedilol to 25mg due to persistent tachycardic. Lasix change to 40mg po BID - will need to monitor BP/Creatinine due to potential for overdiuresis. CO2 increased to 32. Creatinine 2.1. 01/12/18 Continue with Zosyn (Day 5) and Vancomycin (Day 3) for pulmonary coverage. Able to transition from BiPAP to high flow O2 - Have BiPAP available as needed. Will place consult for PT/OT to help with improving functional status and activities. HR and BP stable with current CV medications. Creatinine stable at 1.9. CO2 with slight decrease to 29 01/13/18 Continue with Zosyn (Day 6) and Vancomycin (Day 4) for pulmonary coverage. Continue to use high flow 02 and bipap prn. Work with PT today to determine functional status and recommendations for post- DC care. Continue current meds but change lasix to IV 80 mg Q8H today and monitor I/O. Add metolazone 5 mg daily today and assess response. Renal panel, Mg, CBC in AM for surveillance of electrolytes with diuretics and assessment of WBC. HR and BP stable with current CV medications. Creatinine stable at 1.9; monitor with more aggressive diuresis. 01/14/18 Continue with Zosyn (Day 7) and Vancomycin (Day 5) for pulmonary coverage; may be able to stop tomorrow if still improving Continue to use high flow 02 and bipap prn; wean 02 as tolerated Work with PT to determine functional status and recommendations for post-DC care. Decrease lasix to 40 mg IV Q12H today Hold further metolazone Continue daily weights and strict I/Os Replete potassium po 120 meq and monitor recheck Renal panel, Mg, CBC in AM for surveillance of electrolytes with diuretics and assessment of WBC. HR and BP stable with current CV medications. Creatinine stable at 2.1; monitor with more aggressive diuresis, has some prerenal azotemia but within his chronic range and he will do better from a pulm standpoint if he is kept on the dry side. 01/15/18 Continue with Zosyn (Day 8) and Vancomycin (Day 6) for pulmonary coverage; Consider stopping Baseline home oxygen is 4 liters and patient is currently at 3 liters. He does continue to use BiPAP as needed Continue to monitor daily weights and intake and output. Lasix remains on hold. Monitor potassium routinely as this has normalized Creatinine has trended up today to 2.5 suspect prerenal azotemia Recheck CBC, BMP tomorrow am Continue to encourage work with PT and OT for strengthening. Patient does plan to be discharged home with his son at time of discharge
--- NOTE | 2018-01-15 17:28 | Pharmacy Consult-Antibiotics ---
Pharmacy Consult-Vancomycin - Laboratory Information WBC 16.4 T/MM3 (4.5-11.0) H 01/15/18 04:18 BUN 54.0 MG/DL (9-20) H* 01/15/18 04:18 Creatinine 2.5 mg/dL (0.8-1.5) H D 01/15/18 04:18 Procalcitonin 0.08 NG/ML 01/08/18 17:07 Vancomycin Trough 22.17 ug/mL (15-20) H* 01/15/18 15:35 - Consult Information VANCOMYCIN CONSULT: Vancomycin Trough = 22.17 mcg/ml. Today's SCr = 2.5 mg/dl. Will give Vancomycin 1,000mg IV q24hrs. Will continue to monitor and make adjustments accordingly. Thank you.
--- NOTE | 2018-01-15 17:43 | Cardiology Progress Note ---
<Chely Cano - Last Filed: 01/16/18 14:14> Subjective Principal diagnosis: SOA, CHF Interval history: Jaime is seen in follow up for SOA and DCHF, his son is at he bedside. He is laying almost flat in the bed, in no distress. He denies chest pain, palpitations or other complaints. Exam Vital signs: Temperature 96.5 F L 01/15/18 15:35 Pulse Rate 79 01/15/18 16:00 Respiratory Rate 22 01/15/18 15:35 Blood Pressure 97/65 01/15/18 15:35 Pulse Oximetry 95 01/15/18 15:35 Inpatient Medications: Generic Name Dose Route Start Last Admin Trade Name Freq PRN Reason Stop Dose Admin Acetaminophen 650 mg 01/08/18 15:19 Tylenol PO Q5H PRN Discomfort Albuterol/Ipratropium 3 ml 01/08/18 16:36 01/11/18 08:18 Duoneb AEROSOL 3 ml PRN PRN Administration Albuterol/Ipratropium 3 ml 01/15/18 13:00 01/15/18 14:58 Duoneb AEROSOL 3 ml QID CRISTAL Administration Aspirin 81 mg 01/09/18 09:00 01/15/18 10:04 Ecotrin PO 81 mg DAILY CRISTAL Administration Atorvastatin Calcium 40 mg 01/08/18 21:00 01/14/18 23:03 Lipitor PO 40 mg HS CRISTAL Administration Budesonide 0.5 mg 01/08/18 19:00 01/15/18 08:24 Pulmicort Inhalation AEROSOL 0.5 mg RTBID CRISTAL Administration Carvedilol 25 mg 01/11/18 17:30 01/15/18 17:18 Coreg PO 25 mg BIDWM CRISTAL Administration Finasteride 5 mg 01/09/18 09:00 01/15/18 10:04 Proscar PO 5 mg DAILY CRISTAL Administration Furosemide 40 mg 01/14/18 21:00 01/14/18 23:05 Lasix 40 Mg/4 Ml IVP 40 mg Q12HR CRISTAL Administration Piperacillin Sod/Tazobactam 100 mls @ 200 mls/hr 01/09/18 17:00 01/15/18 17: 18 Sod 2.25 gm/ Sodium Chloride IV 200 mls/hr Q6H CRISTAL Administration Vancomycin HCl 1,000 mg/ 250 mls @ 250 mls/hr 01/16/18 06:00 Sodium Chloride IV Q24H CRISTAL Lorazepam 0.5 mg 01/11/18 16:40 Ativan Inj IVP Q4H PRN Anxiety/Air hunger/Agitation Magnesium Hydroxide 30 ml 01/08/18 15:19 Mom PO DAILY PRN Constipation Multivitamins 1 tab 01/09/18 09:00 01/15/18 10:04 Theragran PO 1 tab DAILY CRISTAL Administration Ondansetron HCl 4 mg 01/08/18 15:19 Zofran IVP Q6H PRN Nausea &/or vomiting Polyethylene Glycol 17 gm 01/09/18 09:00 01/15/18 10:04 Miralax PO 17 gm DAILY CRISTAL Administration Prednisone 40 mg 01/15/18 10:45 01/15/18 11:18 Deltasone 20 Mg PO 40 mg WB CRISTAL Administration Senna/Docusate Sodium 1 tab 01/08/18 15:19 01/11/18 10:12 Senna Plus Tablet PO 1 tab BID PRN Administration Constipation Sodium Chloride 10 - 80 ml 01/08/18 12:27 01/13/18 13:32 Iv Flush IVF 30 ml PRN PRN Administration Flushing Sodium Chloride 500 ml 01/08/18 18:49 01/13/18 11:57 Normal Saline IV 500 ml PRN PRN Administration Sodium Chloride 3 ml 01/11/18 10:00 01/15/18 12:46 Sodium Chloride 3% Inhal AEROSOL Not Given Q8HR [facility] Sodium Chloride 2 spray 01/12/18 17:05 01/15/18 17:19 Deep Sea Nasal Moisturizing [place] EA NOSTRIL 2 spray QID CRISTAL Administration Discontinued Medications Generic Name Dose Route Start Last Admin Trade Name Freq PRN Reason Stop Dose Admin Albuterol/Ipratropium 3 ml 01/08/18 20:00 01/15/18 08:24 Duoneb AEROSOL 3 ml Q4HR CRISTAL Administration Carvedilol 6.25 mg 01/08/18 17:30 01/10/18 08:25 Coreg PO 6.25 mg BIDWM CRISTAL Administration Carvedilol 12.5 mg 01/10/18 13:46 01/11/18 10:12 Coreg PO 12.5 mg BIDWM CRISTAL Administration Furosemide 40 mg 01/08/18 12:33 01/08/18 13:04 Lasix 40 Mg/4 Ml IVP 01/08/18 12:34 40 mg O ONE Administration Furosemide 40 mg 01/10/18 10:00 01/11/18 10:11 Lasix 40 Mg/4 Ml IVP 40 mg Q12HR CRISTAL Administration Furosemide 40 mg 01/12/18 09:00 01/12/18 16:15 Lasix 40 Mg Tab PO 40 mg 0900,1700 CRISTAL Administration Furosemide 80 mg 01/12/18 17:15 01/13/18 01:54 Lasix 40 Mg Tab PO 80 mg Q8H CRISTAL Administration Furosemide 80 mg 01/13/18 09:00 01/14/18 10:29 Lasix 100 Mg/10 Ml IVP 80 mg Q8HR CRISTAL Administration Piperacillin Sod/Tazobactam 100 mls @ 200 mls/hr 01/08/18 18:00 01/09/18 11: 34 Sod 3.375 gm/ Sodium Chloride IV Infused Q8H CRISTAL Infusion Sodium Chloride 1,000 mls @ 75 mls/hr 01/09/18 09:15 01/10/18 04:25 Normal Saline IV Infused .[id number] CRISTAL Infusion Lactated Ringer's 1,000 mls @ 100 mls/hr 01/10/18 04:30 01/10/18 14:14 Lactated Ringers IV Infused .Q10H CRISTAL Infusion Vancomycin HCl 1,500 mg/ 500 mls @ 250 mls/hr 01/10/18 13:00 01/10/18 16:00 Sodium Chloride IV 01/10/18 14:59 Infused O ONE Infusion Vancomycin HCl 1,250 mg/ 250 mls @ 200 mls/hr 01/11/18 13:00 01/13/18 14:12 Sodium Chloride IV Not Given 1300 CRISTAL Vancomycin HCl 1,750 mg/ 500 mls @ 250 mls/hr 01/13/18 13:00 01/14/18 17:12 Sodium Chloride IV Infused Q24HR CRISTAL Infusion Metolazone 5 mg 01/13/18 09:00 01/14/18 11:54 Zaroxolyn PO Not Given DAILY CRISTAL Morphine Sulfate 1 - 2 mg 01/08/18 15:19 01/10/18 04:48 Morphine Sulfate Inj IVP 2 mg Q2H PRN Administration Pain Potassium Chloride 20 meq 01/14/18 06:03 01/14/18 06:09 K-Dur 20 Meq Tablet PO 20 meq BIDWM CRISTAL Administration Potassium Chloride 40 meq 01/14/18 11:45 01/14/18 23:02 K-Dur 20 Meq Tablet PO 01/14/18 19:46 40 meq Q4H CRISTAL Administration Prednisone 5 mg 01/09/18 08:00 01/11/18 10:12 Deltasone 5 Mg PO 5 mg WB CRISTAL Administration Prednisone 50 mg 01/11/18 16:45 01/13/18 09:42 Deltasone 50 Mg PO 50 mg DAILY CRISTAL Administration Prednisone 50 mg 01/14/18 08:00 01/15/18 11:02 Deltasone 50 Mg PO 01/16/18 08:00 Not Given WB CRISTAL Sodium Chloride 4 ml 01/10/18 17:00 01/12/18 10:06 Hyper-Brant AEROSOL Not Given Q8HR CRISTAL Vancomycin HCl 1 each 01/10/18 10:51 01/10/18 11:33 Pharmacy Consult - Vancomycin MC 01/10/18 10:52 Not Given O ONE - Constitutional no acute distress, well nourished, cooperative - Routine HEENT Exam Head: Present: normocephalic ENT: Present: mucous membranes moist - Routine Neck Exam Absent: JVD, carotid bruit - Routine Chest/Breast/Axilla Exam Chest wall: Absent: tenderness - Routine Respiratory Exam Present: diminished air movement. Absent: dyspnea, rales, wheezes - Routine Cardiovascular Exam Present: no murmur. Absent: RRR - Routine Abdominal Exam Present: soft, normoactive bowel sounds - Routine Extremities Exam Present: no edema - Routine Skin Exam Present: intact, dry, warm - Routine Neurological Exam Present: alert, oriented X3 - Routine Psychiatric Exam Present: normal affect, normal thought process Results 01/16/18 05:10 01/16/18 05:11 CBC 01/15/18 Range/Units 04:18 WBC 16.4 H (4.5-11.0) T/MM3 RBC 4.08 L (4.50-5.90) M/MM3 Hgb 11.9 L (13.5-17.5) GM/DL Hct 36.5 L (41-53) % Plt Count 232 (130-400) T/MM3 Comprehensive Metabolic Panel 01/15/18 Range/Units 04:18 Sodium 142 (134-144) MEQ/L Potassium 3.6 D (3.6-5) MEQ/L Chloride 92 L (98-107) MEQ/L Carbon Dioxide 40 H (22-30) MEQ/L BUN 54.0 H* (9-20) MG/DL Creatinine 2.5 H D (0.8-1.5) mg/dL Glucose 160 H (75-110) MG/DL Calcium 8.5 (8.4-10.2) MG/DL Albumin 3.3 L (3.5-5.0) g/dL Intake and Output 01/15/18 01/15/18 01/15/18 06:59 14:59 22:59 Intake Total 1000 / 1000 Output Total 1350 / 1350 800 / 800 Balance -1350 / -1350 200 / 200 Intake: IV 200 / 200 Piperacillin/Tazobactam 2.25 gm 200 / 200 In Ns 100 ml @ 200 mls/hr IV Q6H [facility] Rx#:[id number] Oral 800 / 800 Output: Urine 1350 / 1350 800 / 800 Other: Urine Appearance Clear Clear Urine Color Yellow Yellow Weight 222 lb 0.088 oz Patient Weight 01/16/18 06:59 Weight 222 lb 0.088 oz - Imaging and Cardiology Imaging & Cardiology Narrative: = = = = = = = = = = = = = = = = = = = = = = = = = = = = = = = = = = = = = = = = = = = = = = = = = = = = = = = = = = = Date of Exam: 01/14/18 Ordering Provider: Marisel Villegas APRN Type of Exam(s): XR chest 2V Reason for Exam(s): infiltrates/edema INDICATION: infiltrates/edema PROCEDURE: CHEST 2-VIEWS UPRIGHT (PA & LAT) Encounter: Initial COMPARISON: January 13, 2018 FINDINGS: Continued severe airspace consolidation in the left lower lobe with moderate airspace infiltrate in the right lower lobe. Small effusions. No pneumothorax. Heart size and mediastinal contours are stable. Pulmonary vascularity is indistinct. Impression: Overall stable bilateral basilar infiltrates. 01/15/18 17:44 Assessment and Plan - Assessment and Plan (1) Acute and chronic respiratory failure Status: Acute (2) Atherosclerotic heart disease of [place] coronary artery without angina pectoris Status: Chronic (3) Congestive heart failure Status: Chronic (4) CKD (chronic kidney disease) Status: Chronic (5) Mixed hyperlipidemia Status: Chronic - Assessment and Plan 01/09/18 Acute on chronic Respiratory failure: On chronic O2 4L at home - currently on high flow NC at 11L. 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 Dr. Reena Dean -On aspirin, statin and BB - serial troponin negative CHF - grade 1 diastolic dysfunction - EF 40-45%, mild MR/TR. - Repeat 2 D echo - BNP CKD: Recent AMELIA - SCr increased to 3.06 on 01/02/18. - stage 3 - baseline SCr 1.3-1.6. -Follow renal function HLD: -On Atorvastatin Thank you for allowing us to participate in the care of this patient. 01/10/18 CHF: EF 45% on echo - PAP 65mmHg - Lasix 40mg IV q12h for diuresis - Monitor renal and electrolytes - Increase Coreg for better HR 01/11/18 Increase Coreg to 25mg as HR remains low 100s Change Lasix to 40mg po BID, DC IV Lasix 01/12/18 HR controlled with Coreg 25mg BID - BUN/ SCr 31/1.9, improving - BNP 8010 - CXR now 01/15/18 Change Lasix to 40mg IV Q day Hospital Course Summary Disclaimer: The visit summary below is not to be considered part of the above Progress Note. Hospital Course: 01/08/18 OBS Patient admitted to observation status under the care of Dr. Beaver. Concern for SIRS/sepsis, though no infection identified. Suspect pulmonary source. Initiate zosyn IV for empiric pulmonary coverage. Lasix 40mg IV x 1 dose given in ED due to concern for fluid overload. Weight up 1 kg in 1 week. Monitor urinary output closely as well as daily weight. Given persistent leukocytosis with respiratory failure, will obtain blood cultures as well as sputum culture. Sputum culture on 12/24/17 revealed pseudomonas aeruginosa which was treated with Cefepime while inpatient and Levaquin as outpatient - course complete. Initial lactate 1.8. Troponin 0.079 and BNP 2370. Will monitor serial troponins and lactates. Will monitor closely on telemetry with continuous pulse oximetry. Supplemental oxygen as needed to maintain SAO2 >90%. Baseline on 4L NC at home. Will consult pulmonology given history of pulmonary fibrosis. Continue home prednisone 5mg daily. Initiate DuoNeb treatments as well as Pulmicort. Incentive spirometry. SCr elevated compared to baseline at 1.9. 1.99 on 01/06/18. Continue to monitor closely. Recheck labs in AM to monitor blood counts, electrolytes and renal function. Upon discharge, his care will be returned to his PCP at the [place]. He requests to be a FULL CODE. 01/09/18 With continued increased need for oxygen above and beyond baseline, coupled with pneumonia, will change admission status to inpatient. Continued increased oxygen demand, elevated renal function and white blood count. Suspect pulmonary source - pneumonia. Continue Zosyn IV for empiric pulmonary coverage (day 2). Blood and sputum cultures pending. Slight increase in SCr to 2.0 (up from 1.9). Lasix 40mg IV x 1 dose given in ED prior to admission. Urinary output adequate. Continue to monitor urinary output closely. Hypernatremia with slight increase in Na to 148. Patient appears clinical dry. Will initiate NS 75cc/hr for gentle hydration. Initial lactate 1.8 - decreased to 1.6. Troponin 0.079, 0.089, 0.105, 0.106, 0.098. Will consult cardiology given recent CABG and persistent tachycardia. Will monitor closely on telemetry with continuous pulse oximetry. Supplemental oxygen as needed to maintain SAO2 >90%. Baseline on 4L NC at home. Wean as able. Continues to have increased oxygen demands. Will consult pulmonology given history of pulmonary fibrosis. Continue home prednisone 5mg daily. Initiate DuoNeb treatments as well as Pulmicort. Incentive spirometry. Continue respiratory cares. 01/10/18 Bi-pap started due to increased labored breathing. Continue to monitor renal function and electrolytes. Creatinine decreased to 1.8 today. Continue Zosyn, adding Vancomycin for pulmonary coverage. Continues on chronic home dose of Prednisone. Cardiology increased Coreg to 12.5mg BID and started Lasix 40mg IV BID. Appreciate consultations by Dr. Drummond and Dr. Riley. 01/11/18 Continue with Zosyn (Day 4) and Vancomycin (Day 2) for pulmonary coverage. Will increase Prednisone to 50mg to try to help respiratory status. May have lorazepam 0.5mg IV q 4 hours prn anxiety/air hunger Not having symptoms, but prudent to be available. Continues with BiPAP to help decrease work of breathing Saturations 94-95% on 60% FIO2. Resp rate increased at 25-34. With findings on CT scan, Dr Drummond recommended pulmonary Bx. Patient and family not wanting this procedure. Cardiology increased carvedilol to 25mg due to persistent tachycardic. Lasix change to 40mg po BID - will need to monitor BP/Creatinine due to potential for overdiuresis. CO2 increased to 32. Creatinine 2.1. 01/12/18 Continue with Zosyn (Day 5) and Vancomycin (Day 3) for pulmonary coverage. Able to transition from BiPAP to high flow O2 - Have BiPAP available as needed. Will place consult for PT/OT to help with improving functional status and activities. HR and BP stable with current CV medications. Creatinine stable at 1.9. CO2 with slight decrease to 29 01/13/18 Continue with Zosyn (Day 6) and Vancomycin (Day 4) for pulmonary coverage. Continue to use high flow 02 and bipap prn. Work with PT today to determine functional status and recommendations for post- DC care. Continue current meds but change lasix to IV 80 mg Q8H today and monitor I/O. Add metolazone 5 mg daily today and assess response. Renal panel, Mg, CBC in AM for surveillance of electrolytes with diuretics and assessment of WBC. HR and BP stable with current CV medications. Creatinine stable at 1.9; monitor with more aggressive diuresis. 01/14/18 Continue with Zosyn (Day 7) and Vancomycin (Day 5) for pulmonary coverage; may be able to stop tomorrow if still improving Continue to use high flow 02 and bipap prn; wean 02 as tolerated Work with PT to determine functional status and recommendations for post-DC care. Decrease lasix to 40 mg IV Q12H today Hold further metolazone Continue daily weights and strict I/Os Replete potassium po 120 meq and monitor recheck Renal panel, Mg, CBC in AM for surveillance of electrolytes with diuretics and assessment of WBC. HR and BP stable with current CV medications. Creatinine stable at 2.1; monitor with more aggressive diuresis, has some prerenal azotemia but within his chronic range and he will do better from a pulm standpoint if he is kept on the dry side. 01/15/18 Continue with Zosyn (Day 8) and Vancomycin (Day 6) for pulmonary coverage; Consider stopping Baseline home oxygen is 4 liters and patient is currently at 3 liters. He does continue to use BiPAP as needed Continue to monitor daily weights and intake and output. Lasix remains on hold. Monitor potassium routinely as this has normalized Creatinine has trended up today to 2.5 suspect prerenal azotemia Recheck CBC, BMP tomorrow am Continue to encourage work with PT and OT for strengthening. Patient does plan to be discharged home with his son at time of discharge <Mina Riley - Last Filed: 01/22/18 14:28> Exam Vital signs: Temperature 97.0 F 01/17/18 15:22 Pulse Rate 71 01/17/18 16:00 Respiratory Rate 16 01/17/18 08:00 Blood Pressure 103/65 01/17/18 15:22 Pulse Oximetry 96 01/17/18 15:22 Inpatient Medications: Discontinued Medications Generic Name Dose Route Start Last Admin Trade Name Freq PRN Reason Stop Dose Admin Acetaminophen 650 mg 01/08/18 15:19 Tylenol PO Q5H PRN Discomfort Albuterol/Ipratropium 3 ml 01/08/18 20:00 01/15/18 08:24 Duoneb AEROSOL 3 ml Q4HR CRISTAL Administration Albuterol/Ipratropium 3 ml 01/08/18 16:36 01/11/18 08:18 Duoneb AEROSOL 3 ml PRN PRN Administration Albuterol/Ipratropium 3 ml 01/15/18 13:00 01/16/18 11:35 Duoneb AEROSOL 3 ml QID CRISTAL Administration Aspirin 81 mg 01/09/18 09:00 01/17/18 09:05 Ecotrin PO 81 mg DAILY CRISTAL Administration Atorvastatin Calcium 40 mg 01/08/18 21:00 01/16/18 20:02 Lipitor PO 40 mg HS CRISTAL Administration Budesonide 0.5 mg 01/08/18 19:00 01/16/18 07:15 Pulmicort Inhalation AEROSOL 0.5 mg RTBID CRISTAL Administration Carvedilol 6.25 mg 01/08/18 17:30 01/10/18 08:25 Coreg PO 6.25 mg BIDWM CRISTAL Administration Carvedilol 12.5 mg 01/10/18 13:46 01/11/18 10:12 Coreg PO 12.5 mg BIDWM CRISTAL Administration Carvedilol 25 mg 01/11/18 17:30 01/17/18 17:46 Coreg PO 25 mg BIDWM CRISTAL Administration Finasteride 5 mg 01/09/18 09:00 01/17/18 09:05 Proscar PO 5 mg DAILY CRISTAL Administration Furosemide 40 mg 01/08/18 12:33 01/08/18 13:04 Lasix 40 Mg/4 Ml IVP 01/08/18 12:34 40 mg O ONE Administration Furosemide 40 mg 01/10/18 10:00 01/11/18 10:11 Lasix 40 Mg/4 Ml IVP 40 mg Q12HR CRISTAL Administration Furosemide 40 mg 01/12/18 09:00 01/12/18 16:15 Lasix 40 Mg Tab PO 40 mg 0900,1700 CRISTAL Administration Furosemide 80 mg 01/12/18 17:15 01/13/18 01:54 Lasix 40 Mg Tab PO 80 mg Q8H CRISTAL Administration Furosemide 80 mg 01/13/18 09:00 01/14/18 10:29 Lasix 100 Mg/10 Ml IVP 80 mg Q8HR CRISTAL Administration Furosemide 40 mg 01/14/18 21:00 01/14/18 23:05 Lasix 40 Mg/4 Ml IVP 40 mg Q12HR CRISTAL Administration Furosemide 40 mg 01/16/18 09:00 01/17/18 09:04 Lasix 40 Mg/4 Ml IVP 40 mg DAILY CRISTAL Administration Piperacillin Sod/Tazobactam 100 mls @ 200 mls/hr 01/08/18 18:00 01/09/18 11: 34 Sod 3.375 gm/ Sodium Chloride IV Infused Q8H CRISTAL Infusion Sodium Chloride 1,000 mls @ 75 mls/hr 01/09/18 09:15 01/10/18 04:25 Normal Saline IV Infused .[id number] CRISTAL Infusion Piperacillin Sod/Tazobactam 100 mls @ 200 mls/hr 01/09/18 17:00 01/16/18 11: 55 Sod 2.25 gm/ Sodium Chloride IV Infused Q6H CRISTAL Infusion Lactated Ringer's 1,000 mls @ 100 mls/hr 01/10/18 04:30 01/10/18 14:14 Lactated Ringers IV Infused .Q10H CRISTAL Infusion Vancomycin HCl 1,500 mg/ 500 mls @ 250 mls/hr 01/10/18 13:00 01/10/18 16:00 Sodium Chloride IV 01/10/18 14:59 Infused O ONE Infusion Vancomycin HCl 1,250 mg/ 250 mls @ 200 mls/hr 01/11/18 13:00 01/13/18 14:12 Sodium Chloride IV Not Given 1300 CRISTAL Vancomycin HCl 1,750 mg/ 500 mls @ 250 mls/hr 01/13/18 13:00 01/14/18 17:12 Sodium Chloride IV Infused Q24HR CRISTAL Infusion Vancomycin HCl 1,000 mg/ 250 mls @ 250 mls/hr 01/16/18 06:00 01/16/18 07:00 Sodium Chloride IV Infused Q24H CRISTAL Infusion Lorazepam 0.5 mg 01/11/18 16:40 Ativan Inj IVP Q4H PRN Anxiety/Air hunger/Agitation Magnesium Hydroxide 30 ml 01/08/18 15:19 Mom PO DAILY PRN Constipation Metolazone 5 mg 01/13/18 09:00 01/14/18 11:54 Zaroxolyn PO Not Given DAILY CRISTAL Morphine Sulfate 1 - 2 mg 01/08/18 15:19 01/10/18 04:48 Morphine Sulfate Inj IVP 2 mg Q2H PRN Administration Pain Multivitamins 1 tab 01/09/18 09:00 01/17/18 09:05 Theragran PO 1 tab DAILY CRISTAL Administration Ondansetron HCl 4 mg 01/08/18 15:19 Zofran IVP Q6H PRN Nausea &/or vomiting Polyethylene Glycol 17 gm 01/09/18 09:00 01/17/18 09:04 Miralax PO 17 gm DAILY CRISTAL Administration Potassium Chloride 20 meq 01/14/18 06:03 01/14/18 06:09 K-Dur 20 Meq Tablet PO 20 meq BIDWM CRISTAL Administration Potassium Chloride 40 meq 01/14/18 11:45 01/14/18 23:02 K-Dur 20 Meq Tablet PO 01/14/18 19:46 40 meq Q4H CRISTAL Administration Potassium Chloride 40 meq 01/16/18 14:15 01/16/18 15:51 K-Dur 20 Meq Tablet PO 01/16/18 14:16 40 meq O ONE Administration Potassium Chloride 40 meq 01/17/18 08:17 01/17/18 09:04 K-Dur 20 Meq Tablet PO 01/17/18 08:18 40 meq O ONE Administration Prednisone 5 mg 01/09/18 08:00 01/11/18 10:12 Deltasone 5 Mg PO 5 mg WB CRISTAL Administration Prednisone 50 mg 01/11/18 16:45 01/13/18 09:42 Deltasone 50 Mg PO 50 mg DAILY CRISTAL Administration Prednisone 50 mg 01/14/18 08:00 01/15/18 11:02 Deltasone 50 Mg PO 01/16/18 08:00 Not Given WB CRISTAL Prednisone 40 mg 01/15/18 10:45 01/17/18 09:05 Deltasone 20 Mg PO 40 mg WB CRISTAL Administration Senna/Docusate Sodium 1 tab 01/08/18 15:19 01/11/18 10:12 Senna Plus Tablet PO 1 tab BID PRN Administration Constipation Sodium Chloride 10 - 80 ml 01/08/18 12:27 01/13/18 13:32 Iv Flush IVF 30 ml PRN PRN Administration Flushing Sodium Chloride 500 ml 01/08/18 18:49 01/13/18 11:57 Normal Saline IV 500 ml PRN PRN Administration Sodium Chloride 4 ml 01/10/18 17:00 01/12/18 10:06 Hyper-Brant AEROSOL Not Given Q8HR C[facility]AL Sodium Chloride 3 ml 01/11/18 10:00 01/16/18 12:59 Sodium Chloride 3% Inhal AEROSOL Not Given Q8HR C[facility]STAL Sodium Chloride 2 spray 01/12/18 17:05 01/17/18 17:46 Deep Sea Nasal Moisturizing [place] EA NOSTRIL 2 spray QID CRISTAL Administration Vancomycin HCl 1 each 01/10/18 10:51 01/10/18 11:33 Pharmacy Consult - Vancomycin MC 01/10/18 10:52 Not Given O ONE Results 01/16/18 05:10 01/17/18 07:44 Assessment and Plan - Assessment and Plan (1) Congestive heart failure Status: Chronic (2) Acute and chronic respiratory failure Status: Acute (3) Atherosclerotic heart disease of [place] coronary artery without angina pectoris Status: Chronic (4) CKD (chronic kidney disease) Status: Chronic (5) Mixed hyperlipidemia Status: Chronic - Attestation Attestation Narrative: 01/22/18 14:28 Recommendation After examining the patient I agree with the above assessment. I am involved in the formulation of the patient's plan of care. Hospital Course Summary Disclaimer: The visit summary below is not to be considered part of the above Progress Note.
[2018-01-15] MEDS: ATORVASTATIN 40 MG TABLET PO SCH (20:46)
[2018-01-16] MEDS: SALINE 0.65% NASAL SPRAY 44 ML BOTTLE EA NOSTRIL SCH ×5 (01:22→20:02)
[2018-01-16] MEDS: SODIUM CL 3% INHAL.SOLN 15ml NEB AEROSOL SCH ×2 (07:15→12:59)
[2018-01-16] MEDS: ALBUTEROL/IPRATROPIUM 2.5mg-0.5mg/3ml NEB AEROSOL SCH ×2 (07:15→11:35)
[2018-01-16] MEDS: BUDESONIDE INH.SOLN 0.5mg/2ml NEB AEROSOL SCH (07:15)
[2018-01-16] MEDS: PredniSONE 20 MG TABLET PO SCH (09:31)
[2018-01-16] MEDS: FINASTERIDE 5 MG TABLET PO SCH (09:31)
[2018-01-16] MEDS: FUROSEMIDE 40 MG/4 ML INJECTION IVP SCH (09:31)
[2018-01-16] MEDS: CARVEDILOL 25 MG TABLET PO SCH ×2 (09:31→18:28)
[2018-01-16] MEDS: ASPIRIN *EC* 81 MG TABLET PO SCH (09:32)
[2018-01-16] MEDS: MULTI-VITAMIN PLAIN TABLET PO SCH (09:32)
[2018-01-16] MEDS: POLYETHYL GLYCOL 3350 17gm PACKET PO SCH (09:32)
[2018-01-16] MEDS: PIPERACILLIN/TAZOBACTAM 2.25 GM in NS 100 ML IV SCH ×2 (10:40→11:25)
--- NOTE | 2018-01-16 11:40 | Progress Note ---
- Date 01/16/18 Subjective: Jaime is seen today in follow up. He is feeling good and up ambulating around the room and continues on his baseline oxygen. Denies having pain and reports dyspnea is stable. Appetite good, vital signs stable. Objective Vital signs: Temperature 98.1 F 01/16/18 08:00 Pulse Rate 63 01/16/18 08:00 Respiratory Rate 16 01/16/18 08:00 Blood Pressure 115/69 01/16/18 08:00 Pulse Oximetry 93 01/16/18 08:00 Height/Weight/BMI: Weight 100.5 kg - Constitutional Present: well nourished, well developed - Routine HEENT Exam Eye: Present: EOMI ENT: Present: mucous membranes moist, dentition normal - Routine Respiratory Exam Present: diminished air movement. Absent: wheezes - Routine Cardiovascular Exam Present: RRR, S1, S2. Absent: murmur - Routine Abdominal Exam Present: soft, normoactive bowel sounds, non distended. Absent: tenderness - Routine Extremities Exam Present: normal capillary refill - Routine Skin Exam Present: dry, warm - Routine Neurological Exam Present: alert, oriented X3, CN II-XII intact, moving all extremities - Routine Lymphatic Exam Lymphatic: Absent: adenopathy - Routine Psychiatric Exam Present: normal affect, cooperative Results - Labs CBC & Chem 7: 01/16/18 05:10 01/16/18 05:11 Microbiology Results: Microbiology 01/09/18 23:25 Sputum, Expectorated Gram Stain - Final 01/09/18 23:25 Sputum, Expectorated Sputum Culture - Final Kalyani albicans Normal Respiratory Lilia Assessment and Plan Assessment and Plan: Assessment Pneumonia 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 Recent AMELIA - SCr increased to 3.06 on 01/02/18. Chronic kidney disease, stage 3 - baseline SCr 1.3-1.6? Hyperlipidemia BPH GERD Former tobaccoism Obesity - BMI >30 Hypokalemia Plan Spoke with Dr Drummond- can discontinue IV antibiotics as he has been covered since 12/24 Will continue with Prednisone 40mg daily for 2 weeks then decrease to 20 mg daily until he can see his trolley wire [facility] Continue with oxygen at baseline 3-4 Liters Continue to monitor renal function- It is trending down. Will check again tomorrow Hopeful for discharge tomorrow Home health set up by Home oxygen tanks and supplies delivered Case discussed with Dr Flanagan 01/16/2018-5:40 PM-I examined the patient independently. I reviewed this chart, the patient history, and the INTERDISCIPLINARY PROFESSOR's/PA's documented findings as above. We discussed and formulated the assessment and plan as above with the additions below.-Dr. Flanagan The patient was seen this evening accompanied by 3 of his sons. He states he's feeling well today. He feels like his breathing is back to baseline. He is currently on 4-1/2 L with oxygen saturation of 91%. He denies any pain. He states he's eating and drinking well. He states his bowels are moving without difficulties. He is urinating without difficulties. He feels ready for dismissal tomorrow. On exam he is alert and in no acute distress. Chest reveals some minimal dry sounding crackles in the bases. Cardiovascular reveals a regular rate and rhythm. Abdomen is soft and nontender. Extremities are free of edema. Lab today is reviewed. BUN has increased slightly to 57. Creatinine is down to 2.4. Impression and plan Acute on chronic hypoxic and hypercapnic respiratory failure-currently back to baseline Pulmonary fibrosis-Dr. 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 He may need to be discharged on a diuretic. Regarding acute on chronic kidney disease, recheck basic metabolic profile tomorrow. He will need his renal function followed as an outpatient. If stable tomorrow, will likely discharge to home with home health and close follow-up with his primary care provider. Discussed possible discharge plans for tomorrow with the patient and his sons this evening. They're all in agreement with dismissal tomorrow if he remains stable. - Physician Narrative Narrative: Date: 01/16/18 Time: 1135 Hospital Course Summary Disclaimer: The visit summary below is not to be considered part of the above Progress Note. Hospital Course: 01/08/18 OBS Patient admitted to observation status under the care of Dr. Beaver. Concern for SIRS/sepsis, though no infection identified. Suspect pulmonary source. Initiate zosyn IV for empiric pulmonary coverage. Lasix 40mg IV x 1 dose given in ED due to concern for fluid overload. Weight up 1 kg in 1 week. Monitor urinary output closely as well as daily weight. Given persistent leukocytosis with respiratory failure, will obtain blood cultures as well as sputum culture. Sputum culture on 12/24/17 revealed pseudomonas aeruginosa which was treated with Cefepime while inpatient and Levaquin as outpatient - course complete. Initial lactate 1.8. Troponin 0.079 and BNP 2370. Will monitor serial troponins and lactates. Will monitor closely on telemetry with continuous pulse oximetry. Supplemental oxygen as needed to maintain SAO2 >90%. Baseline on 4L NC at home. Will consult pulmonology given history of pulmonary fibrosis. Continue home prednisone 5mg daily. Initiate DuoNeb treatments as well as Pulmicort. Incentive spirometry. SCr elevated compared to baseline at 1.9. 1.99 on 01/06/18. Continue to monitor closely. Recheck labs in AM to monitor blood counts, electrolytes and renal function. Upon discharge, his care will be returned to his PCP at the [facility]. He requests to be a FULL CODE. 01/09/18 With continued increased need for oxygen above and beyond baseline, coupled with pneumonia, will change admission status to inpatient. Continued increased oxygen demand, elevated renal function and white blood count. Suspect pulmonary source - pneumonia. Continue Zosyn IV for empiric pulmonary coverage (day 2). Blood and sputum cultures pending. Slight increase in SCr to 2.0 (up from 1.9). Lasix 40mg IV x 1 dose given in ED prior to admission. Urinary output adequate. Continue to monitor urinary output closely. Hypernatremia with slight increase in Na to 148. Patient appears clinical dry. Will initiate NS 75cc/hr for gentle hydration. Initial lactate 1.8 - decreased to 1.6. Troponin 0.079, 0.089, 0.105, 0.106, 0.098. Will consult cardiology given recent CABG and persistent tachycardia. Will monitor closely on telemetry with continuous pulse oximetry. Supplemental oxygen as needed to maintain SAO2 >90%. Baseline on 4L NC at home. Wean as able. Continues to have increased oxygen demands. Will consult pulmonology given history of pulmonary fibrosis. Continue home prednisone 5mg daily. Initiate DuoNeb treatments as well as Pulmicort. Incentive spirometry. Continue respiratory cares. 01/10/18 Bi-pap started due to increased labored breathing. Continue to monitor renal function and electrolytes. Creatinine decreased to 1.8 today. Continue Zosyn, adding Vancomycin for pulmonary coverage. Continues on chronic home dose of Prednisone. Cardiology increased Coreg to 12.5mg BID and started Lasix 40mg IV BID. Appreciate consultations by Dr. Drummond and Dr. Riley. 01/11/18 Continue with Zosyn (Day 4) and Vancomycin (Day 2) for pulmonary coverage. Will increase Prednisone to 50mg to try to help respiratory status. May have lorazepam 0.5mg IV q 4 hours prn anxiety/air hunger Not having symptoms, but prudent to be available. Continues with BiPAP to help decrease work of breathing Saturations 94-95% on 60% FIO2. Resp rate increased at 25-34. With findings on CT scan, Dr Drummond recommended pulmonary Bx. Patient and family not wanting this procedure. Cardiology increased carvedilol to 25mg due to persistent tachycardic. Lasix change to 40mg po BID - will need to monitor BP/Creatinine due to potential for overdiuresis. CO2 increased to 32. Creatinine 2.1. 01/12/18 Continue with Zosyn (Day 5) and Vancomycin (Day 3) for pulmonary coverage. Able to transition from BiPAP to high flow O2 - Have BiPAP available as needed. Will place consult for PT/OT to help with improving functional status and activities. HR and BP stable with current CV medications. Creatinine stable at 1.9. CO2 with slight decrease to 29 01/13/18 Continue with Zosyn (Day 6) and Vancomycin (Day 4) for pulmonary coverage. Continue to use high flow 02 and bipap prn. Work with PT today to determine functional status and recommendations for post- DC care. Continue current meds but change lasix to IV 80 mg Q8H today and monitor I/O. Add metolazone 5 mg daily today and assess response. Renal panel, Mg, CBC in AM for surveillance of electrolytes with diuretics and assessment of WBC. HR and BP stable with current CV medications. Creatinine stable at 1.9; monitor with more aggressive diuresis. 01/14/18 Continue with Zosyn (Day 7) and Vancomycin (Day 5) for pulmonary coverage; may be able to stop tomorrow if still improving Continue to use high flow 02 and bipap prn; wean 02 as tolerated Work with PT to determine functional status and recommendations for post-DC care. Decrease lasix to 40 mg IV Q12H today Hold further metolazone Continue daily weights and strict I/Os Replete potassium po 120 meq and monitor recheck Renal panel, Mg, CBC in AM for surveillance of electrolytes with diuretics and assessment of WBC. HR and BP stable with current CV medications. Creatinine stable at 2.1; monitor with more aggressive diuresis, has some prerenal azotemia but within his chronic range and he will do better from a pulm standpoint if he is kept on the dry side. 01/15/18 Continue with Zosyn (Day 8) and Vancomycin (Day 6) for pulmonary coverage; Consider stopping Baseline home oxygen is 4 liters and patient is currently at 3 liters. He does continue to use BiPAP as needed Continue to monitor daily weights and intake and output. Lasix remains on hold. Monitor potassium routinely as this has normalized Creatinine has trended up today to 2.5 suspect prerenal azotemia Recheck CBC, BMP tomorrow am Continue to encourage work with PT and OT for strengthening. Patient does plan to be discharged home with his son at time of discharge 01/16/[address] Drummond- can discontinue IV antibiotics as he has been covered since 12/24 Will continue with Prednisone 40mg daily and taper down to 5 mg Continue with oxygen at baseline 3-4 Liters Continue to monitor renal function- It is trending down. Will check again tomorrow Hopeful for discharge tomorrow Home health set up by [facility] Home oxygen tanks and supplies delivered Case discussed with Dr Flanagan
--- NOTE | 2018-01-16 12:18 | Pulmonology Progress Note ---
Subjective Principal diagnosis: SOA, CHF Interval history: feels better. down to 2 lpm o2 by nc. doesn't get any benefit from neb bronchodilators currently taking prednisone 40. Exam Vital signs: Temperature 98.0 F 01/16/18 12:00 Pulse Rate 80 01/16/18 12:00 Respiratory Rate 16 01/16/18 12:00 Blood Pressure 100/64 01/16/18 12:00 Pulse Oximetry 92 01/16/18 12:00 Inpatient Medications: Generic Name Dose Route Start Last Admin Trade Name Freq PRN Reason Stop Dose Admin Acetaminophen 650 mg 01/08/18 15:19 Tylenol PO Q5H PRN Discomfort Albuterol/Ipratropium 3 ml 01/08/18 16:36 01/11/18 08:18 Duoneb AEROSOL 3 ml PRN PRN Administration Aspirin 81 mg 01/09/18 09:00 01/16/18 09:32 Ecotrin PO 81 mg DAILY CRISTAL Administration Atorvastatin Calcium 40 mg 01/08/18 21:00 01/15/18 20:46 Lipitor PO 40 mg HS CRISTAL Administration Carvedilol 25 mg 01/11/18 17:30 01/16/18 09:31 Coreg PO 25 mg BIDWM CRISTAL Administration Finasteride 5 mg 01/09/18 09:00 01/16/18 09:31 Proscar PO 5 mg DAILY CRISTAL Administration Furosemide 40 mg 01/14/18 21:00 01/14/18 23:05 Lasix 40 Mg/4 Ml IVP 40 mg Q12HR CRISTAL Administration Furosemide 40 mg 01/16/18 09:00 01/16/18 09:31 Lasix 40 Mg/4 Ml IVP 40 mg DAILY CRISTAL Administration Piperacillin Sod/Tazobactam 100 mls @ 200 mls/hr 01/09/18 17:00 01/16/18 11: 25 Sod 2.25 gm/ Sodium Chloride IV 200 mls/hr Q6H CRISTAL Administration Vancomycin HCl 1,000 mg/ 250 mls @ 250 mls/hr 01/16/18 06:00 01/16/18 05:07 Sodium Chloride IV 250 mls/hr Q24H CRISTAL Administration Lorazepam 0.5 mg 01/11/18 16:40 Ativan Inj IVP Q4H PRN Anxiety/Air hunger/Agitation Magnesium Hydroxide 30 ml 01/08/18 15:19 Mom PO DAILY PRN Constipation Multivitamins 1 tab 01/09/18 09:00 01/16/18 09:32 Theragran PO 1 tab DAILY CRISTAL Administration Ondansetron HCl 4 mg 01/08/18 15:19 Zofran IVP Q6H PRN Nausea &/or vomiting Polyethylene Glycol 17 gm 01/09/18 09:00 01/16/18 09:32 Miralax PO 17 gm DAILY CRISTAL Administration Prednisone 40 mg 01/15/18 10:45 01/16/18 09:31 Deltasone 20 Mg PO 40 mg WB CRISTAL Administration Senna/Docusate Sodium 1 tab 01/08/18 15:19 01/11/18 10:12 Senna Plus Tablet PO 1 tab BID PRN Administration Constipation Sodium Chloride 10 - 80 ml 01/08/18 12:27 01/13/18 13:32 Iv Flush IVF 30 ml PRN PRN Administration Flushing Sodium Chloride 500 ml 01/08/18 18:49 01/13/18 11:57 Normal Saline IV 500 ml PRN PRN Administration Sodium Chloride 2 spray 01/12/18 17:05 01/16/18 09:32 Deep Sea Nasal Moisturizing Vona EA NOSTRIL 2 spray QID CRISTAL Administration Discontinued Medications Generic Name Dose Route Start Last Admin Trade Name Freq PRN Reason Stop Dose Admin Albuterol/Ipratropium 3 ml 01/08/18 20:00 01/15/18 08:24 Duoneb AEROSOL 3 ml Q4HR CRISTAL Administration Albuterol/Ipratropium 3 ml 01/15/18 13:00 01/16/18 11:35 Duoneb AEROSOL 3 ml QID CRISTAL Administration Budesonide 0.5 mg 01/08/18 19:00 01/16/18 07:15 Pulmicort Inhalation AEROSOL 0.5 mg RTBID [facility] Administration Carvedilol 6.25 mg 01/08/18 17:30 01/10/18 08:25 Coreg PO 6.25 mg BIDWM CRISTAL Administration Carvedilol 12.5 mg 01/10/18 13:46 01/11/18 10:12 Coreg PO 12.5 mg BIDWM CRISTAL Administration Furosemide 40 mg 01/08/18 12:33 01/08/18 13:04 Lasix 40 Mg/4 Ml IVP 01/08/18 12:34 40 mg O ONE Administration Furosemide 40 mg 01/10/18 10:00 01/11/18 10:11 Lasix 40 Mg/4 Ml IVP 40 mg Q12HR CRISTAL Administration Furosemide 40 mg 01/12/18 09:00 01/12/18 16:15 Lasix 40 Mg Tab PO 40 mg 0900,1700 CRISTAL Administration Furosemide 80 mg 01/12/18 17:15 01/13/18 01:54 Lasix 40 Mg Tab PO 80 mg Q8H CRISTAL Administration Furosemide 80 mg 01/13/18 09:00 01/14/18 10:29 Lasix 100 Mg/10 Ml IVP 80 mg Q8HR CRISTAL Administration Piperacillin Sod/Tazobactam 100 mls @ 200 mls/hr 01/08/18 18:00 01/09/18 11: 34 Sod 3.375 gm/ Sodium Chloride IV Infused Q8H CRISTAL Infusion Sodium Chloride 1,000 mls @ 75 mls/hr 01/09/18 09:15 01/10/18 04:25 Normal Saline IV Infused .[id number] CRISTAL Infusion Lactated Ringer's 1,000 mls @ 100 mls/hr 01/10/18 04:30 01/10/18 14:14 Lactated Ringers IV Infused .Q10H CRISTAL Infusion Vancomycin HCl 1,500 mg/ 500 mls @ 250 mls/hr 01/10/18 13:00 01/10/18 16:00 Sodium Chloride IV 01/10/18 14:59 Infused O ONE Infusion Vancomycin HCl 1,250 mg/ 250 mls @ 200 mls/hr 01/11/18 13:00 01/13/18 14:12 Sodium Chloride IV Not Given 1300 CRISTAL Vancomycin HCl 1,750 mg/ 500 mls @ 250 mls/hr 01/13/18 13:00 01/14/18 17:12 Sodium Chloride IV Infused Q24HR CRISTAL Infusion Metolazone 5 mg 01/13/18 09:00 01/14/18 11:54 Zaroxolyn PO Not Given DAILY CRISTAL Morphine Sulfate 1 - 2 mg 01/08/18 15:19 01/10/18 04:48 Morphine Sulfate Inj IVP 2 mg Q2H PRN Administration Pain Potassium Chloride 20 meq 01/14/18 06:03 01/14/18 06:09 K-Dur 20 Meq Tablet PO 20 meq BIDWM CRISTAL Administration Potassium Chloride 40 meq 01/14/18 11:45 01/14/18 23:02 K-Dur 20 Meq Tablet PO 01/14/18 19:46 40 meq Q4H CRISTAL Administration Prednisone 5 mg 01/09/18 08:00 01/11/18 10:12 Deltasone 5 Mg PO 5 mg WB CRISTAL Administration Prednisone 50 mg 01/11/18 16:45 01/13/18 09:42 Deltasone 50 Mg PO 50 mg DAILY CRISTAL Administration Prednisone 50 mg 01/14/18 08:00 01/15/18 11:02 Deltasone 50 Mg PO 01/16/18 08:00 Not Given WB CRISTAL Sodium Chloride 4 ml 01/10/18 17:00 01/12/18 10:06 Hyper-Brant AEROSOL Not Given Q8HR CRISTAL Sodium Chloride 3 ml 01/11/18 10:00 01/16/18 07:15 Sodium Chloride 3% Inhal AEROSOL 3 ml Q8HR CRISTAL Administration Vancomycin HCl 1 each 01/10/18 10:51 01/10/18 11:33 Pharmacy Consult - Vancomycin 01/10/18 10:52 Not Given O ONE - Constitutional no acute distress - Routine HEENT Exam Head: Present: normocephalic Eye: Absent: conjunctival icterus - Routine Neck Exam Present: supple. Absent: JVD - Routine Respiratory Exam Present: accessory muscle use, crackles - Routine Cardiovascular Exam Present: RRR - Routine Abdominal Exam Present: soft - Routine Extremities Exam Absent: cyanosis Results - Laboratory Findings Laboratory: Laboratory Results - last 48 hr 01/15/18 01/15/18 01/15/18 04:18 04:18 15:35 WBC 16.4 H RBC 4.08 L Hgb 11.9 L Hct 36.5 L MCV 89.5 MCH 29.2 MCHC 32.6 RDW Std Deviation 42.1 Plt Count 232 MPV 8.7 L Immature Gran % (Auto) Neut % (Auto) Lymph % (Auto) Martin % (Auto) Eos % (Auto) Baso % (Auto) Neut # (Auto) Lymph # (Auto) Martin # (Auto) Eos # (Auto) Baso # (Auto) Abs Immat Gran (auto) Neutrophils % (Manual) Lymphocytes % (Manual) Monocytes % (Manual) Eosinophils % (Manual) Neutrophils # (Manual) Lymphocytes # (Manual) Monocytes # (Manual) Eosinophils # (Manual) RBC Morph Comment Turbidity < 20 Sodium 142 Potassium 3.6 D Chloride 92 L Carbon Dioxide 40 H Anion Gap 10 BUN 54.0 H* Creatinine 2.5 H D GFR Calculation 25 BUN/Creatinine Ratio 22 Glucose 160 H Calculated Osmolality 291 H Calcium 8.5 Phosphorus 4.3 Magnesium 2.0 Icterus Index < 2 Albumin 3.3 L Specimen Hemolysis < 15 Vancomycin Trough 22.17 H* 01/16/18 01/16/18 05:10 05:11 WBC 17.0 H RBC 4.04 L Hgb 11.6 L Hct 36.5 L MCV 90.3 MCH 28.7 MCHC 31.8 RDW Std Deviation 42.7 Plt Count 207 MPV 8.5 L Immature Gran % (Auto) Not performed Neut % (Auto) Not performed Lymph % (Auto) Not performed Martin % (Auto) Not performed Eos % (Auto) Not performed Baso % (Auto) Not performed Neut # (Auto) Not performed Lymph # (Auto) Not performed Martin # (Auto) Not performed Eos # (Auto) Not performed Baso # (Auto) Not performed Abs Immat Gran (auto) Not performed Neutrophils % (Manual) 84.0 H Lymphocytes % (Manual) 12.0 L Monocytes % (Manual) 2.0 Eosinophils % (Manual) 2.0 Neutrophils # (Manual) 14.3 H Lymphocytes # (Manual) 2.0 Monocytes # (Manual) 0.3 Eosinophils # (Manual) 0.3 RBC Morph Comment Normal Turbidity < 20 Sodium 140 Potassium 3.5 L Chloride 91 L Carbon Dioxide 40 H Anion Gap 9 BUN 57.0 H* Creatinine 2.4 H GFR Calculation 26 BUN/Creatinine Ratio 24 Glucose 168 H Calculated Osmolality 289 H Calcium 8.6 Phosphorus Magnesium Icterus Index < 2 Albumin Specimen Hemolysis < 15 Vancomycin Trough Assessment and Plan (1) Interstitial lung disease Status: Acute Assessment and plan: This is a 77 year old gentleman with ILD, seen in the past by pulm at the [facility]. He was treated with prednisone for a prolonged course with limited perceived benefit, however it appears that his disease is steroid-responsive at this point and is currently on prednisone 40/day His HRCT shows ground glass opacities and reticular markings with some honeycombing but less architectural distortion than one would normally see in UIP/IPF. The atypical presentation of his case required surgical lung biopsy for accurate diagnosis, and unfortunately the patient is not willing to undergo that procedure. I recommend dismissing him on prednisone 40 mg for 2 weeks. then decrease for 20 mg daily. I would not taper this further until the patient can be seen by his metal caster at the [facility] Current Visit: Yes - Assessment and Plan Acute on chronic hypoxemic respiratory failure pulmonary fibrosis, unclear etiology Pseudomonas pneumonia Pulmonary edema AMELIA on CKD - Cr baseline 1.3-1.6 - Time Spent With Patient Total time spent is greater than 50% in coordination of care (as documented) at patient's floor/unit and/or counseling patient: less than 15 minutes
--- NOTE | 2018-01-16 14:18 | Cardiology Progress Note ---
<Chely Cano - Last Filed: 01/16/18 14:15> Subjective Principal diagnosis: SOA, CHF Interval history: Jaime is seen in follow up for SOA and DCHF, he is laying almost flat in bed, without Bi-pap, in no distress. He denies chest pain, palpitations or other complaints. Exam Vital signs: Temperature 98.0 F 01/16/18 12:00 Pulse Rate 80 01/16/18 12:00 Respiratory Rate 16 01/16/18 12:00 Blood Pressure 100/64 01/16/18 12:00 Pulse Oximetry 92 01/16/18 12:00 Inpatient Medications: Generic Name Dose Route Start Last Admin Trade Name Freq PRN Reason Stop Dose Admin Acetaminophen 650 mg 01/08/18 15:19 Tylenol PO Q5H PRN Discomfort Albuterol/Ipratropium 3 ml 01/08/18 16:36 01/11/18 08:18 Duoneb AEROSOL 3 ml PRN PRN Administration Aspirin 81 mg 01/09/18 09:00 01/16/18 09:32 Ecotrin PO 81 mg DAILY CRISTAL Administration Atorvastatin Calcium 40 mg 01/08/18 21:00 01/15/18 20:46 Lipitor PO 40 mg HS CRISTAL Administration Carvedilol 25 mg 01/11/18 17:30 01/16/18 09:31 Coreg PO 25 mg BIDWM CRISTAL Administration Finasteride 5 mg 01/09/18 09:00 01/16/18 09:31 Proscar PO 5 mg DAILY CRISTAL Administration Furosemide 40 mg 01/16/18 09:00 01/16/18 09:31 Lasix 40 Mg/4 Ml IVP 40 mg DAILY CRISTAL Administration Lorazepam 0.5 mg 01/11/18 16:40 Ativan Inj IVP Q4H PRN Anxiety/Air hunger/Agitation Magnesium Hydroxide 30 ml 01/08/18 15:19 Mom PO DAILY PRN Constipation Multivitamins 1 tab 01/09/18 09:00 01/16/18 09:32 Theragran PO 1 tab DAILY CRISTAL Administration Ondansetron HCl 4 mg 01/08/18 15:19 Zofran IVP Q6H PRN Nausea &/or vomiting Polyethylene Glycol 17 gm 01/09/18 09:00 01/16/18 09:32 Miralax PO 17 gm DAILY CRISTAL Administration Prednisone 40 mg 01/15/18 10:45 01/16/18 09:31 Deltasone 20 Mg PO 40 mg WB CRISTAL Administration Senna/Docusate Sodium 1 tab 01/08/18 15:19 01/11/18 10:12 Senna Plus Tablet PO 1 tab BID PRN Administration Constipation Sodium Chloride 10 - 80 ml 01/08/18 12:27 01/13/18 13:32 Iv Flush IVF 30 ml PRN PRN Administration Flushing Sodium Chloride 500 ml 01/08/18 18:49 01/13/18 11:57 Normal Saline IV 500 ml PRN PRN Administration Sodium Chloride 2 spray 01/12/18 17:05 01/16/18 13:24 Deep Sea Nasal Moisturizing [place] EA NOSTRIL Not Given QID CRISTAL Discontinued Medications Generic Name Dose Route Start Last Admin Trade Name Freq PRN Reason Stop Dose Admin Albuterol/Ipratropium 3 ml 01/08/18 20:00 01/15/18 08:24 Duoneb AEROSOL 3 ml Q4HR CRISTAL Administration Albuterol/Ipratropium 3 ml 01/15/18 13:00 01/16/18 11:35 Duoneb AEROSOL 3 ml QID CRISTAL Administration Budesonide 0.5 mg 01/08/18 19:00 01/16/18 07:15 Pulmicort Inhalation AEROSOL 0.5 mg RTBID CRISTAL Administration Carvedilol 6.25 mg 01/08/18 17:30 01/10/18 08:25 Coreg PO 6.25 mg BIDWM CRISTAL Administration Carvedilol 12.5 mg 01/10/18 13:46 01/11/18 10:12 Coreg PO 12.5 mg BIDWM CRISTAL Administration Furosemide 40 mg 01/08/18 12:33 01/08/18 13:04 Lasix 40 Mg/4 Ml IVP 01/08/18 12:34 40 mg O ONE Administration Furosemide 40 mg 01/10/18 10:00 01/11/18 10:11 Lasix 40 Mg/4 Ml IVP 40 mg Q12HR CRISTAL Administration Furosemide 40 mg 01/12/18 09:00 01/12/18 16:15 Lasix 40 Mg Tab PO 40 mg 0900,1700 CRISTAL Administration Furosemide 80 mg 01/12/18 17:15 01/13/18 01:54 Lasix 40 Mg Tab PO 80 mg Q8H CRISTAL Administration Furosemide 80 mg 01/13/18 09:00 01/14/18 10:29 Lasix 100 Mg/10 Ml IVP 80 mg Q8HR CRISTAL Administration Furosemide 40 mg 01/14/18 21:00 01/14/18 23:05 Lasix 40 Mg/4 Ml IVP 40 mg Q12HR CRISTAL Administration Piperacillin Sod/Tazobactam 100 mls @ 200 mls/hr 01/08/18 18:00 01/09/18 11: 34 Sod 3.375 gm/ Sodium Chloride IV Infused Q8H CRISTAL Infusion Sodium Chloride 1,000 mls @ 75 mls/hr 01/09/18 09:15 01/10/18 04:25 Normal Saline IV Infused .[id number] CRISTAL Infusion Piperacillin Sod/Tazobactam 100 mls @ 200 mls/hr 01/09/18 17:00 01/16/18 11: 55 Sod 2.25 gm/ Sodium Chloride IV Infused Q6H CRISTAL Infusion Lactated Ringer's 1,000 mls @ 100 mls/hr 01/10/18 04:30 01/10/18 14:14 Lactated Ringers IV Infused .Q10H CRISTAL Infusion Vancomycin HCl 1,500 mg/ 500 mls @ 250 mls/hr 01/10/18 13:00 01/10/18 16:00 Sodium Chloride IV 01/10/18 14:59 Infused O ONE Infusion Vancomycin HCl 1,250 mg/ 250 mls @ 200 mls/hr 01/11/18 13:00 01/13/18 14:12 Sodium Chloride IV Not Given 1300 CRISTAL Vancomycin HCl 1,750 mg/ 500 mls @ 250 mls/hr 01/13/18 13:00 01/14/18 17:12 Sodium Chloride IV Infused Q24HR CRISTAL Infusion Vancomycin HCl 1,000 mg/ 250 mls @ 250 mls/hr 01/16/18 06:00 01/16/18 07:00 Sodium Chloride IV Infused Q24H CRISTAL Infusion Metolazone 5 mg 01/13/18 09:00 01/14/18 11:54 Zaroxolyn PO Not Given DAILY CRISTAL Morphine Sulfate 1 - 2 mg 01/08/18 15:19 01/10/18 04:48 Morphine Sulfate Inj IVP 2 mg Q2H PRN Administration Pain Potassium Chloride 20 meq 01/14/18 06:03 01/14/18 06:09 K-Dur 20 Meq Tablet PO 20 meq BIDWM CRISTAL Administration Potassium Chloride 40 meq 01/14/18 11:45 01/14/18 23:02 K-Dur 20 Meq Tablet PO 01/14/18 19:46 40 meq Q4H CRISTAL Administration Prednisone 5 mg 01/09/18 08:00 01/11/18 10:12 Deltasone 5 Mg PO 5 mg WB CRISTAL Administration Prednisone 50 mg 01/11/18 16:45 01/13/18 09:42 Deltasone 50 Mg PO 50 mg DAILY CRISTAL Administration Prednisone 50 mg 01/14/18 08:00 01/15/18 11:02 Deltasone 50 Mg PO 01/16/18 08:00 Not Given WB CRISTAL Sodium Chloride 4 ml 01/10/18 17:00 01/12/18 10:06 Hyper-Brant AEROSOL Not Given Q8HR CRISTAL Sodium Chloride 3 ml 01/11/18 10:00 01/16/18 12:59 Sodium Chloride 3% Inhal AEROSOL Not Given Q8HR CRISTAL Vancomycin HCl 1 each 01/10/18 10:51 01/10/18 11:33 Pharmacy Consult - Vancomycin MC 01/10/18 10:52 Not Given O ONE - Constitutional no acute distress, well nourished, cooperative - Routine HEENT Exam Head: Present: normocephalic ENT: Present: mucous membranes moist - Routine Neck Exam Absent: JVD, carotid bruit - Routine Chest/Breast/Axilla Exam Chest wall: Absent: tenderness - Routine Respiratory Exam Present: diminished air movement (bases). Absent: dyspnea - Routine Cardiovascular Exam Present: RRR, no murmur - Routine Abdominal Exam Present: soft, non tender - Routine Extremities Exam Present: no edema - Routine Skin Exam Present: intact, dry, warm - Routine Neurological Exam Present: alert, oriented X3 - Routine Psychiatric Exam Present: normal affect, normal thought process Results 01/16/18 05:10 01/16/18 05:11 CBC 01/16/18 Range/Units 05:10 WBC 17.0 H (4.5-11.0) T/MM3 RBC 4.04 L (4.50-5.90) M/MM3 Hgb 11.6 L (13.5-17.5) GM/DL Hct 36.5 L (41-53) % Plt Count 207 (130-400) T/MM3 Neut # (Auto) Not performed Lymph # (Auto) Not performed [place] # (Auto) Not performed Eos # (Auto) Not performed Baso # (Auto) Not performed Comprehensive Metabolic Panel 01/16/18 Range/Units 05:11 Sodium 140 (134-144) MEQ/L Potassium 3.5 L (3.6-5) MEQ/L Chloride 91 L (98-107) MEQ/L Carbon Dioxide 40 H (22-30) MEQ/L BUN 57.0 H* (9-20) MG/DL Creatinine 2.4 H (0.8-1.5) mg/dL Glucose 168 H (75-110) MG/DL Calcium 8.6 (8.4-10.2) MG/DL Intake and Output 01/15/18 01/16/18 01/16/18 22:59 06:59 14:59 Intake Total 400 / 400 100 / 100 1268 / 1268 Output Total 300 / 300 480 / 480 500 / 500 Balance 100 / 100 -380 / -380 768 / 768 Intake: IV 100 / 100 100 / 100 350 / 350 Piperacillin/Tazobactam 2.25 gm 100 / 100 100 / 100 100 / 100 In Ns 100 ml @ 200 mls/hr IV Q6H CRISTAL Rx#:[id number] Vancomycin 1,000 mg In NS 250ml 250 / 250 250 ml @ 250 mls/hr IV Q24H [facility] Rx#:[id number] Oral 300 / 300 918 / 918 Output: Urine 300 / 300 480 / 480 500 / 500 Other: Urine Appearance Clear Clear Clear Urine Color Yellow Yellow Yellow Urine Odor Normal Normal Stool Color Brown Stool Consistency Soft Formed Size of Bowel Movement Moderate # Voids 1 Weight 221 lb 9.033 oz Patient Weight 01/17/18 06:59 Weight 221 lb 9.033 oz Assessment and Plan - Assessment and Plan (1) Acute and chronic respiratory failure Status: Acute (2) Atherosclerotic heart disease of [place] coronary artery without angina pectoris Status: Chronic (3) Congestive heart failure Status: Chronic (4) CKD (chronic kidney disease) Status: Chronic (5) Mixed hyperlipidemia Status: Chronic - Assessment and Plan 01/09/18 Acute on chronic Respiratory failure: On chronic O2 4L at home - currently on high flow NC at 11L. 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 Dr. Reena Dean -On aspirin, statin and BB - serial troponin negative CHF - grade 1 diastolic dysfunction - EF 40-45%, mild MR/TR. - Repeat 2 D echo - BNP CKD: Recent AMELIA - SCr increased to 3.06 on 01/02/18. - stage 3 - baseline SCr 1.3-1.6. -Follow renal function HLD: -On Atorvastatin Thank you for allowing us to participate in the care of this patient. 01/10/18 CHF: EF 45% on echo - PAP 65mmHg - Lasix 40mg IV q12h for diuresis - Monitor renal and electrolytes - Increase Coreg for better HR 01/11/18 Increase Coreg to 25mg as HR remains low 100s Change Lasix to 40mg po BID, DC IV Lasix 01/12/18 HR controlled with Coreg 25mg BID - BUN/ SCr 31/1.9, improving - BNP 8010 - CXR now 01/15/18 Change Lasix to 40mg IV Q day 01/16/18 - K+ 3.5, replace - BUN 57 /Scr 2.4 - BNP Hospital Course Summary Disclaimer: The visit summary below is not to be considered part of the above Progress Note. Hospital Course: 01/08/18 OBS Patient admitted to observation status under the care of Dr. Beaver. Concern for SIRS/sepsis, though no infection identified. Suspect pulmonary source. Initiate zosyn IV for empiric pulmonary coverage. Lasix 40mg IV x 1 dose given in ED due to concern for fluid overload. Weight up 1 kg in 1 week. Monitor urinary output closely as well as daily weight. Given persistent leukocytosis with respiratory failure, will obtain blood cultures as well as sputum culture. Sputum culture on 12/24/17 revealed pseudomonas aeruginosa which was treated with Cefepime while inpatient and Levaquin as outpatient - course complete. Initial lactate 1.8. Troponin 0.079 and BNP 2370. Will monitor serial troponins and lactates. Will monitor closely on telemetry with continuous pulse oximetry. Supplemental oxygen as needed to maintain SAO2 >90%. Baseline on 4L NC at home. Will consult pulmonology given history of pulmonary fibrosis. Continue home prednisone 5mg daily. Initiate DuoNeb treatments as well as Pulmicort. Incentive spirometry. SCr elevated compared to baseline at 1.9. 1.99 on 01/06/18. Continue to monitor closely. Recheck labs in AM to monitor blood counts, electrolytes and renal function. Upon discharge, his care will be returned to his PCP at the [facility]. He requests to be a FULL CODE. 01/09/18 With continued increased need for oxygen above and beyond baseline, coupled with pneumonia, will change admission status to inpatient. Continued increased oxygen demand, elevated renal function and white blood count. Suspect pulmonary source - pneumonia. Continue Zosyn IV for empiric pulmonary coverage (day 2). Blood and sputum cultures pending. Slight increase in SCr to 2.0 (up from 1.9). Lasix 40mg IV x 1 dose given in ED prior to admission. Urinary output adequate. Continue to monitor urinary output closely. Hypernatremia with slight increase in Na to 148. Patient appears clinical dry. Will initiate NS 75cc/hr for gentle hydration. Initial lactate 1.8 - decreased to 1.6. Troponin 0.079, 0.089, 0.105, 0.106, 0.098. Will consult cardiology given recent CABG and persistent tachycardia. Will monitor closely on telemetry with continuous pulse oximetry. Supplemental oxygen as needed to maintain SAO2 >90%. Baseline on 4L NC at home. Wean as able. Continues to have increased oxygen demands. Will consult pulmonology given history of pulmonary fibrosis. Continue home prednisone 5mg daily. Initiate DuoNeb treatments as well as Pulmicort. Incentive spirometry. Continue respiratory cares. 01/10/18 Bi-pap started due to increased labored breathing. Continue to monitor renal function and electrolytes. Creatinine decreased to 1.8 today. Continue Zosyn, adding Vancomycin for pulmonary coverage. Continues on chronic home dose of Prednisone. Cardiology increased Coreg to 12.5mg BID and started Lasix 40mg IV BID. Appreciate consultations by Dr. Drummond and Dr. Riley. 01/11/18 Continue with Zosyn (Day 4) and Vancomycin (Day 2) for pulmonary coverage. Will increase Prednisone to 50mg to try to help respiratory status. May have lorazepam 0.5mg IV q 4 hours prn anxiety/air hunger Not having symptoms, but prudent to be available. Continues with BiPAP to help decrease work of breathing Saturations 94-95% on 60% FIO2. Resp rate increased at 25-34. With findings on CT scan, Dr Drummond recommended pulmonary Bx. Patient and family not wanting this procedure. Cardiology increased carvedilol to 25mg due to persistent tachycardic. Lasix change to 40mg po BID - will need to monitor BP/Creatinine due to potential for overdiuresis. CO2 increased to 32. Creatinine 2.1. 01/12/18 Continue with Zosyn (Day 5) and Vancomycin (Day 3) for pulmonary coverage. Able to transition from BiPAP to high flow O2 - Have BiPAP available as needed. Will place consult for PT/OT to help with improving functional status and activities. HR and BP stable with current CV medications. Creatinine stable at 1.9. CO2 with slight decrease to 29 01/13/18 Continue with Zosyn (Day 6) and Vancomycin (Day 4) for pulmonary coverage. Continue to use high flow 02 and bipap prn. Work with PT today to determine functional status and recommendations for post- DC care. Continue current meds but change lasix to IV 80 mg Q8H today and monitor I/O. Add metolazone 5 mg daily today and assess response. Renal panel, Mg, CBC in AM for surveillance of electrolytes with diuretics and assessment of WBC. HR and BP stable with current CV medications. Creatinine stable at 1.9; monitor with more aggressive diuresis. 01/14/18 Continue with Zosyn (Day 7) and Vancomycin (Day 5) for pulmonary coverage; may be able to stop tomorrow if still improving Continue to use high flow 02 and bipap prn; wean 02 as tolerated Work with PT to determine functional status and recommendations for post-DC care. Decrease lasix to 40 mg IV Q12H today Hold further metolazone Continue daily weights and strict I/Os Replete potassium po 120 meq and monitor recheck Renal panel, Mg, CBC in AM for surveillance of electrolytes with diuretics and assessment of WBC. HR and BP stable with current CV medications. Creatinine stable at 2.1; monitor with more aggressive diuresis, has some prerenal azotemia but within his chronic range and he will do better from a pulm standpoint if he is kept on the dry side. 01/15/18 Continue with Zosyn (Day 8) and Vancomycin (Day 6) for pulmonary coverage; Consider stopping Baseline home oxygen is 4 liters and patient is currently at 3 liters. He does continue to use BiPAP as needed Continue to monitor daily weights and intake and output. Lasix remains on hold. Monitor potassium routinely as this has normalized Creatinine has trended up today to 2.5 suspect prerenal azotemia Recheck CBC, BMP tomorrow am Continue to encourage work with PT and OT for strengthening. Patient does plan to be discharged home with his son at time of discharge <Mina Riley - Last Filed: 01/22/18 14:33> Exam Vital signs: Temperature 97.0 F 01/17/18 15:22 Pulse Rate 71 01/17/18 16:00 Respiratory Rate 16 01/17/18 08:00 Blood Pressure 103/65 01/17/18 15:22 Pulse Oximetry 96 01/17/18 15:22 Inpatient Medications: Discontinued Medications Generic Name Dose Route Start Last Admin Trade Name Freq PRN Reason Stop Dose Admin Acetaminophen 650 mg 01/08/18 15:19 Tylenol PO Q5H PRN Discomfort Albuterol/Ipratropium 3 ml 01/08/18 20:00 01/15/18 08:24 Duoneb AEROSOL 3 ml Q4HR CRISTAL Administration Albuterol/Ipratropium 3 ml 01/08/18 16:36 01/11/18 08:18 Duoneb AEROSOL 3 ml PRN PRN Administration Albuterol/Ipratropium 3 ml 01/15/18 13:00 01/16/18 11:35 Duoneb AEROSOL 3 ml QID CRISTAL Administration Aspirin 81 mg 01/09/18 09:00 01/17/18 09:05 Ecotrin PO 81 mg DAILY CRISTAL Administration Atorvastatin Calcium 40 mg 01/08/18 21:00 01/16/18 20:02 Lipitor PO 40 mg HS CRISTAL Administration Budesonide 0.5 mg 01/08/18 19:00 01/16/18 07:15 Pulmicort Inhalation AEROSOL 0.5 mg RTBID CRISTAL Administration Carvedilol 6.25 mg 01/08/18 17:30 01/10/18 08:25 Coreg PO 6.25 mg BIDWM CRISTAL Administration Carvedilol 12.5 mg 01/10/18 13:46 01/11/18 10:12 Coreg PO 12.5 mg BIDWM CRISTAL Administration Carvedilol 25 mg 01/11/18 17:30 01/17/18 17:46 Coreg PO 25 mg BIDWM CRISTAL Administration Finasteride 5 mg 01/09/18 09:00 01/17/18 09:05 Proscar PO 5 mg DAILY CRISTAL Administration Furosemide 40 mg 01/08/18 12:33 01/08/18 13:04 Lasix 40 Mg/4 Ml IVP 01/08/18 12:34 40 mg O ONE Administration Furosemide 40 mg 01/10/18 10:00 01/11/18 10:11 Lasix 40 Mg/4 Ml IVP 40 mg Q12HR CRISTAL Administration Furosemide 40 mg 01/12/18 09:00 01/12/18 16:15 Lasix 40 Mg Tab PO 40 mg 0900,1700 CRISTAL Administration Furosemide 80 mg 01/12/18 17:15 01/13/18 01:54 Lasix 40 Mg Tab PO 80 mg Q8H CRISTAL Administration Furosemide 80 mg 01/13/18 09:00 01/14/18 10:29 Lasix 100 Mg/10 Ml IVP 80 mg Q8HR CRISTAL Administration Furosemide 40 mg 01/14/18 21:00 01/14/18 23:05 Lasix 40 Mg/4 Ml IVP 40 mg Q12HR CRISTAL Administration Furosemide 40 mg 01/16/18 09:00 01/17/18 09:04 Lasix 40 Mg/4 Ml IVP 40 mg DAILY CRISTAL Administration Piperacillin Sod/Tazobactam 100 mls @ 200 mls/hr 01/08/18 18:00 01/09/18 11: 34 Sod 3.375 gm/ Sodium Chloride IV Infused Q8H CRISTAL Infusion Sodium Chloride 1,000 mls @ 75 mls/hr 01/09/18 09:15 01/10/18 04:25 Normal Saline IV Infused .[id number] CRISTAL Infusion Piperacillin Sod/Tazobactam 100 mls @ 200 mls/hr 01/09/18 17:00 01/16/18 11: 55 Sod 2.25 gm/ Sodium Chloride IV Infused Q6H CRISTAL Infusion Lactated Ringer's 1,000 mls @ 100 mls/hr 01/10/18 04:30 01/10/18 14:14 Lactated Ringers IV Infused .Q10H CRISTAL Infusion Vancomycin HCl 1,500 mg/ 500 mls @ 250 mls/hr 01/10/18 13:00 01/10/18 16:00 Sodium Chloride IV 01/10/18 14:59 Infused O ONE Infusion Vancomycin HCl 1,250 mg/ 250 mls @ 200 mls/hr 01/11/18 13:00 01/13/18 14:12 Sodium Chloride IV Not Given 1300 CRISTAL Vancomycin HCl 1,750 mg/ 500 mls @ 250 mls/hr 01/13/18 13:00 01/14/18 17:12 Sodium Chloride IV Infused Q24HR CRISTAL Infusion Vancomycin HCl 1,000 mg/ 250 mls @ 250 mls/hr 01/16/18 06:00 01/16/18 07:00 Sodium Chloride IV Infused Q24H CRISTAL Infusion Lorazepam 0.5 mg 01/11/18 16:40 Ativan Inj IVP Q4H PRN Anxiety/Air hunger/Agitation Magnesium Hydroxide 30 ml 01/08/18 15:19 Mom PO DAILY PRN Constipation Metolazone 5 mg 01/13/18 09:00 01/14/18 11:54 Zaroxolyn PO Not Given DAILY CRISTAL Morphine Sulfate 1 - 2 mg 01/08/18 15:19 01/10/18 04:48 Morphine Sulfate Inj IVP 2 mg Q2H PRN Administration Pain Multivitamins 1 tab 01/09/18 09:00 01/17/18 09:05 Theragran PO 1 tab DAILY CRISTAL Administration Ondansetron HCl 4 mg 01/08/18 15:19 Zofran IVP Q6H PRN Nausea &/or vomiting Polyethylene Glycol 17 gm 01/09/18 09:00 01/17/18 09:04 Miralax PO 17 gm DAILY CRISTAL Administration Potassium Chloride 20 meq 01/14/18 06:03 01/14/18 06:09 K-Dur 20 Meq Tablet PO 20 meq BIDWM CRISTAL Administration Potassium Chloride 40 meq 01/14/18 11:45 01/14/18 23:02 K-Dur 20 Meq Tablet PO 01/14/18 19:46 40 meq Q4H CRISTAL Administration Potassium Chloride 40 meq 01/16/18 14:15 01/16/18 15:51 K-Dur 20 Meq Tablet PO 01/16/18 14:16 40 meq O ONE Administration Potassium Chloride 40 meq 01/17/18 08:17 01/17/18 09:04 K-Dur 20 Meq Tablet PO 01/17/18 08:18 40 meq O ONE Administration Prednisone 5 mg 01/09/18 08:00 01/11/18 10:12 Deltasone 5 Mg PO 5 mg WB CRISTAL Administration Prednisone 50 mg 01/11/18 16:45 01/13/18 09:42 Deltasone 50 Mg PO 50 mg DAILY CRISTAL Administration Prednisone 50 mg 01/14/18 08:00 01/15/18 11:02 Deltasone 50 Mg PO 01/16/18 08:00 Not Given WB CRISTAL Prednisone 40 mg 01/15/18 10:45 01/17/18 09:05 Deltasone 20 Mg PO 40 mg WB CRISTAL Administration Senna/Docusate Sodium 1 tab 01/08/18 15:19 01/11/18 10:12 Senna Plus Tablet PO 1 tab BID PRN Administration Constipation Sodium Chloride 10 - 80 ml 01/08/18 12:27 01/13/18 13:32 Iv Flush IVF 30 ml PRN PRN Administration Flushing Sodium Chloride 500 ml 01/08/18 18:49 01/13/18 11:57 Normal Saline IV 500 ml PRN PRN Administration Sodium Chloride 4 ml 01/10/18 17:00 01/12/18 10:06 Hyper-Brant AEROSOL Not Given Q8HR [facility]AL Sodium Chloride 3 ml 01/11/18 10:00 01/16/18 12:59 Sodium Chloride 3% Inhal AEROSOL Not Given Q8HR CRISTAL Sodium Chloride 2 spray 01/12/18 17:05 01/17/18 17:46 Deep Sea Nasal Moisturizing [place] EA NOSTRIL 2 spray QID CRISTAL Administration Vancomycin HCl 1 each 01/10/18 10:51 01/10/18 11:33 Pharmacy Consult - Vancomycin MC 01/10/18 10:52 Not Given O ONE Results 01/16/18 05:10 01/17/18 07:44 Assessment and Plan - Assessment and Plan (1) Congestive heart failure Status: Chronic (2) Acute and chronic respiratory failure Status: Acute (3) Atherosclerotic heart disease of [place] coronary artery without angina pectoris Status: Chronic (4) CKD (chronic kidney disease) Status: Chronic (5) Mixed hyperlipidemia Status: Chronic - Attestation Attestation Narrative: 01/22/18 14:33 Recommendation After examining the patient I agree with the above assessment. I am involved in the formulation of the patient's plan of care. Hospital Course Summary Disclaimer: The visit summary below is not to be considered part of the above Progress Note.
[2018-01-16] MEDS: ATORVASTATIN 40 MG TABLET PO SCH (20:02)
[2018-01-17 00:29] VITALS: RESP 16
[2018-01-17] MEDS: POLYETHYL GLYCOL 3350 17gm PACKET PO SCH (09:04)
[2018-01-17] MEDS: FUROSEMIDE 40 MG/4 ML INJECTION IVP SCH (09:04)
[2018-01-17] MEDS: ASPIRIN *EC* 81 MG TABLET PO SCH (09:05)
[2018-01-17] MEDS: FINASTERIDE 5 MG TABLET PO SCH (09:05)
[2018-01-17] MEDS: CARVEDILOL 25 MG TABLET PO SCH ×2 (09:05→17:46)
[2018-01-17] MEDS: SALINE 0.65% NASAL SPRAY 44 ML BOTTLE EA NOSTRIL SCH ×3 (09:05→17:46)
[2018-01-17] MEDS: MULTI-VITAMIN PLAIN TABLET PO SCH (09:05)
[2018-01-17] MEDS: PredniSONE 20 MG TABLET PO SCH (09:05)
--- NOTE | 2018-01-17 09:42 | Pulmonology Progress Note ---
Subjective Principal diagnosis: SOA, CHF Interval history: Pt currently awake in bed, on 3L per [place] and farideh. States he is about back to his norm. Slight cough noted but no real sputum noted. Exam Vital signs: Temperature 96.6 F L 01/17/18 08:00 Pulse Rate 69 01/17/18 08:00 Respiratory Rate 16 01/17/18 08:00 Blood Pressure 121/69 01/17/18 08:00 Pulse Oximetry 90 01/17/18 08:05 Inpatient Medications: Generic Name Dose Route Start Last Admin Trade Name Freq PRN Reason Stop Dose Admin Acetaminophen 650 mg 01/08/18 15:19 Tylenol PO Q5H PRN Discomfort Albuterol/Ipratropium 3 ml 01/08/18 16:36 01/11/18 08:18 Duoneb AEROSOL 3 ml PRN PRN Administration Aspirin 81 mg 01/09/18 09:00 01/17/18 09:05 Ecotrin PO 81 mg DAILY RCISTAL Administration Atorvastatin Calcium 40 mg 01/08/18 21:00 01/16/18 20:02 Lipitor PO 40 mg HS CRISTAL Administration Carvedilol 25 mg 01/11/18 17:30 01/17/18 09:05 Coreg PO 25 mg BIDWM CRISTAL Administration Finasteride 5 mg 01/09/18 09:00 01/17/18 09:05 Proscar PO 5 mg DAILY CRISTAL Administration Furosemide 40 mg 01/16/18 09:00 01/17/18 09:04 Lasix 40 Mg/4 Ml IVP 40 mg DAILY CRISTAL Administration Lorazepam 0.5 mg 01/11/18 16:40 Ativan Inj IVP Q4H PRN Anxiety/Air hunger/Agitation Magnesium Hydroxide 30 ml 01/08/18 15:19 Mom PO DAILY PRN Constipation Multivitamins 1 tab 01/09/18 09:00 01/17/18 09:05 Theragran PO 1 tab DAILY CRISTAL Administration Ondansetron HCl 4 mg 01/08/18 15:19 Zofran IVP Q6H PRN Nausea &/or vomiting Polyethylene Glycol 17 gm 01/09/18 09:00 01/17/18 09:04 Miralax PO 17 gm DAILY CRISTAL Administration Prednisone 40 mg 01/15/18 10:45 01/17/18 09:05 Deltasone 20 Mg PO 40 mg WB CRISTAL Administration Senna/Docusate Sodium 1 tab 05/07/18 15:19 01/11/18 10:12 Senna Plus Tablet PO 1 tab BID PRN Administration Constipation Sodium Chloride 10 - 80 ml 01/08/18 12:27 01/13/18 13:32 Iv Flush IVF 30 ml PRN PRN Administration Flushing Sodium Chloride 500 ml 01/08/18 18:49 01/13/18 11:57 Normal Saline IV 500 ml PRN PRN Administration Sodium Chloride 2 spray 01/12/18 17:05 01/17/18 09:05 [place] Nasal Moisturizing Tatums EA NOSTRIL 2 spray QID CRISTAL Administration Discontinued Medications Generic Name Dose Route Start Last Admin Trade Name Freq PRN Reason Stop Dose Admin Albuterol/Ipratropium 3 ml 01/08/18 20:00 01/15/18 08:24 Duoneb AEROSOL 3 ml Q4HR CRISTAL Administration Albuterol/Ipratropium 3 ml 01/15/18 13:00 01/16/18 11:35 Duoneb AEROSOL 3 ml QID CRISTAL Administration Budesonide 0.5 mg 01/08/18 19:00 01/16/18 07:15 Pulmicort Inhalation AEROSOL 0.5 mg RTBID CRISTAL Administration Carvedilol 6.25 mg 01/08/18 17:30 01/10/18 08:25 Coreg PO 6.25 mg BIDWM CRISTAL Administration Carvedilol 12.5 mg 01/10/18 13:46 01/11/18 10:12 Coreg PO 12.5 mg BIDWM CRISTAL Administration Furosemide 40 mg 01/08/18 12:33 01/08/18 13:04 Lasix 40 Mg/4 Ml IVP 01/08/18 12:34 40 mg O ONE Administration Furosemide 40 mg 01/10/18 10:00 01/11/18 10:11 Lasix 40 Mg/4 Ml IVP 40 mg Q12HR CRISTAL Administration Furosemide 40 mg 01/12/18 09:00 01/12/18 16:15 Lasix 40 Mg Tab PO 40 mg 0900,1700 CRISTAL Administration Furosemide 80 mg 01/12/18 17:15 01/13/18 01:54 Lasix 40 Mg Tab PO 80 mg Q8H CRISTAL Administration Furosemide 80 mg 01/13/18 09:00 01/14/18 10:29 Lasix 100 Mg/10 Ml IVP 80 mg Q8HR CRISTAL Administration Furosemide 40 mg 01/14/18 21:00 01/14/18 23:05 Lasix 40 Mg/4 Ml IVP 40 mg Q12HR CRISTAL Administration Piperacillin Sod/Tazobactam 100 mls @ 200 mls/hr 01/08/18 18:00 01/09/18 11: 34 Sod 3.375 gm/ Sodium Chloride IV Infused Q8H CRISTAL Infusion Sodium Chloride 1,000 mls @ 75 mls/hr 01/09/18 09:15 01/10/18 04:25 Normal Saline IV Infused .[id number] CRISTAL Infusion Piperacillin Sod/Tazobactam 100 mls @ 200 mls/hr 01/09/18 17:00 01/16/18 11: 55 Sod 2.25 gm/ Sodium Chloride IV Infused Q6H CRISTAL Infusion Lactated Ringer's 1,000 mls @ 100 mls/hr 01/10/18 04:30 01/10/18 14:14 Lactated Ringers IV Infused .Q10H CRISTAL Infusion Vancomycin HCl 1,500 mg/ 500 mls @ 250 mls/hr 01/10/18 13:00 01/10/18 16:00 Sodium Chloride IV 01/10/18 14:59 Infused O ONE Infusion Vancomycin HCl 1,250 mg/ 250 mls @ 200 mls/hr 01/11/18 13:00 01/13/18 14:12 Sodium Chloride IV Not Given 1300 CRISTAL Vancomycin HCl 1,750 mg/ 500 mls @ 250 mls/hr 01/13/18 13:00 01/14/18 17:12 Sodium Chloride IV Infused Q24HR CRISTAL Infusion Vancomycin HCl 1,000 mg/ 250 mls @ 250 mls/hr 01/16/18 06:00 01/16/18 07:00 Sodium Chloride IV Infused Q24H CRISTAL Infusion Metolazone 5 mg 01/13/18 09:00 01/14/18 11:54 Zaroxolyn PO Not Given DAILY CRISTAL Morphine Sulfate 1 - 2 mg 01/08/18 15:19 01/10/18 04:48 Morphine Sulfate Inj IVP 2 mg Q2H PRN Administration Pain Potassium Chloride 20 meq 01/14/18 06:03 01/14/18 06:09 K-Dur 20 Meq Tablet PO 20 meq BIDWM CRISTAL Administration Potassium Chloride 40 meq 01/14/18 11:45 01/14/18 23:02 K-Dur 20 Meq Tablet PO 01/14/18 19:46 40 meq Q4H CRISTAL Administration Potassium Chloride 40 meq 01/16/18 14:15 01/16/18 15:51 K-Dur 20 Meq Tablet PO 01/16/18 14:16 40 meq O ONE Administration Potassium Chloride 40 meq 01/17/18 08:17 01/17/18 09:04 K-Dur 20 Meq Tablet PO 01/17/18 08:18 40 meq O ONE Administration Prednisone 5 mg 01/09/18 08:00 01/11/18 10:12 Deltasone 5 Mg PO 5 mg WB CRISTAL Administration Prednisone 50 mg 01/11/18 16:45 01/13/18 09:42 Deltasone 50 Mg PO 50 mg DAILY CRISTAL Administration Prednisone 50 mg 01/14/18 08:00 01/15/18 11:02 Deltasone 50 Mg PO 01/16/18 08:00 Not Given WB CRISTAL Sodium Chloride 4 ml 01/10/18 17:00 01/12/18 10:06 Hyper-Brant AEROSOL Not Given Q8HR CRISTAL Sodium Chloride 3 ml 01/11/18 10:00 01/16/18 12:59 Sodium Chloride 3% Inhal AEROSOL Not Given Q8HR CRISTAL Vancomycin HCl 1 each 01/10/18 10:51 01/10/18 11:33 Pharmacy Consult - Vancomycin 01/10/18 10:52 Not Given O ONE - Constitutional no acute distress, average body habitus, cooperative - Routine HEENT Exam Head: Present: normocephalic, atraumatic Eye: Present: EOMI, PERRL - Routine Neck Exam Present: supple, full ROM, trachea midline - Routine Respiratory Exam Present: decreased breath sounds, crackles. Absent: accessory muscle use, patient mechanically ventilated - Routine Cardiovascular Exam Present: RRR, S1, S2, no murmur - Routine Abdominal Exam Present: soft, normoactive bowel sounds - Routine Extremities Exam Present: clubbing, no edema, non tender, full ROM. Absent: cyanosis - Routine Back/Spine/Pelvis Exam Back/Spine: Present: full ROM - Routine Skin Exam Present: intact, dry - Routine Neurological Exam Present: alert, oriented X3, CN II-XII intact - Routine Psychiatric Exam Present: normal affect, normal thought process Results - Laboratory Findings Laboratory: Laboratory Results - last 48 hr 01/15/18 01/16/18 01/16/18 15:35 04:18 05:10 WBC 17.0 H RBC 4.04 L Hgb 11.6 L Hct 36.5 L MCV 90.3 MCH 28.7 MCHC 31.8 RDW Std Deviation 42.7 Plt Count 207 MPV 8.5 L Immature Gran % (Auto) Not performed Neut % (Auto) Not performed Lymph % (Auto) Not performed [place] % (Auto) Not performed Eos % (Auto) Not performed Baso % (Auto) Not performed Neut # (Auto) Not performed Lymph # (Auto) Not performed [place] # (Auto) Not performed Eos # (Auto) Not performed Baso # (Auto) Not performed Abs Immat Gran (auto) Not performed Neutrophils % (Manual) 84.0 H Lymphocytes % (Manual) 12.0 L Monocytes % (Manual) 2.0 Eosinophils % (Manual) 2.0 Neutrophils # (Manual) 14.3 H Lymphocytes # (Manual) 2.0 Monocytes # (Manual) 0.3 Eosinophils # (Manual) 0.3 RBC Morph Comment Normal Turbidity Sodium Potassium Chloride Carbon Dioxide Anion Gap BUN Creatinine GFR Calculation BUN/Creatinine Ratio Glucose Calculated Osmolality Calcium Phosphorus Icterus Index NT-Pro-B Natriuret Pep 1650 H Albumin Specimen Hemolysis Vancomycin Trough 22.17 H* 01/16/18 01/17/18 05:11 07:44 WBC RBC Hgb Hct MCV MCH MCHC RDW Std Deviation Plt Count MPV Immature Gran % (Auto) Neut % (Auto) Lymph % (Auto) [place] % (Auto) Eos % (Auto) Baso % (Auto) Neut # (Auto) Lymph # (Auto) [place] # (Auto) Eos # (Auto) Baso # (Auto) Abs Immat Gran (auto) Neutrophils % (Manual) Lymphocytes % (Manual) Monocytes % (Manual) Eosinophils % (Manual) Neutrophils # (Manual) Lymphocytes # (Manual) Monocytes # (Manual) Eosinophils # (Manual) RBC Morph Comment Turbidity < 20 < 20 Sodium 140 140 Potassium 3.5 L 3.4 L Chloride 91 L 94 L Carbon Dioxide 40 H 38 H Anion Gap 9 8 BUN 57.0 H* 59.0 H* Creatinine 2.4 H 1.6 H D GFR Calculation 26 42 BUN/Creatinine Ratio 24 37 H Glucose 168 H 119 H Calculated Osmolality 289 H 287 H Calcium 8.6 8.7 Phosphorus 3.3 Icterus Index < 2 < 2 NT-Pro-B Natriuret Pep Albumin 3.2 L Specimen Hemolysis < 15 < 15 Vancomycin Trough Assessment and Plan - Assessment and Plan Acute on chronic hypoxemic respiratory failure pulmonary fibrosis, unclear etiology Pseudomonas pneumonia Pulmonary edema/CHF AMELIA on CKD - Cr baseline 1.3-1.6 Plan: Pt currently on O2 at 3L and farideh. Keep sats 90-95%, Awaiting ExOx to see what O2 he will need at home. On prn BT's, currently prednisone 40mg would cont x 2 weeks then decrease to 20mg till seen by his ladies attendant. Cr 1.6 today, cont diuresis as farideh. His HRCT shows ground glass opacities and reticular markings with some honeycombing but less architectural distortion than one would normally see in UIP/IPF. The atypical presentation of his case required surgical lung biopsy for accurate diagnosis, and unfortunately the patient is not willing to undergo that procedure. - Time Spent With Patient Total time spent is greater than 50% in coordination of care (as documented) at patient's floor/unit and/or counseling patient: less than 15 minutes
[2018-01-17 15:24] VITALS: BP 103/65; TEMP 97; O2SAT 96
--- NOTE | 2018-01-17 15:36 | Discharge Summary ---
Discharge Information Date of admission: 01/09/18 10:15 Anticipated date of discharge: 01/17/18 Attending Physician: Dulce Flanagan MD Primary care physician: Ankit Calderón MD Consults: Dr. Drummond-pulmonology Dr. Riley- Cardiology Pneumonia 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 Recent AMELIA - SCr increased to 3.06 on 01/02/18. Chronic kidney disease, stage 3 - baseline SCr 1.3-1.6 Hyperlipidemia BPH GERD Former tobaccoism Obesity - BMI >30 Hypokalemia - Procedures Procedures: None - Laboratory Labs: 01/16/18 05:10 01/17/18 07:44 - Microbiology Microbiology 01/09/18 23:25 Sputum, Expectorated Gram Stain - Final 01/09/18 23:25 Sputum, Expectorated Sputum Culture - Final Kalyani albicans Normal Respiratory Lilia - Radiology Radiology: 01/08/18-chest [id number]: Stable abnormal appearance of the chest with bilateral airspace disease. 01/09/18- chest x-ray- Impression: Continued severe airspace disease on the left could be due to pneumonia, aspiration or edema. Chest CT may be helpful to exclude mass as clinically indicated. 01/09/18-echocardiogram- IMPRESSION 1. Inferior akinesia with ejection fraction of about 45%. 2. Concentric left ventricular hypertrophy. 3. Mitral annulus calcification with mild mitral regurgitation. 4. Aortic sclerosis with mild aortic insufficiency. 5. Mild tricuspid regurgitation with moderate to severe pulmonary hypertension with estimated pulmonary artery systolic pressure of 65. 6. Mild pulmonary insufficiency. 01/09/18-CT chest high resolution- Impression: Severe emphysema and pulmonary fibrotic changes. This does not have the typical distribution for usual interstitial pneumonitis. Chronic hypersensitivity pneumonitis and drug reaction are within the differential. Superimposed acute pneumonia cannot be excluded given the lack of comparison studies. 01/12/18-chest x-ray- Impression: Abnormal chest with a complex constellation of findings including emphysema, fibrosis and a probable superimposed acute process that may be due to edema or infection/inflammation. 01/13/18-chest [id number]: Worsening hypoinflation and left basilar airspace disease. 01/14/18-chest [id number]: Overall stable bilateral basilar infiltrates. - Pathology None History of Present Illness HPI: Jaime Villegas is a very pleasant 77-year-old [facility] ED today, 01/08/18, for evaluation of hypoxia. He reports that on 12/20/17 he was admitted to [facility] in [place] and found to be having an acute STEMI. He subsequently underwent an emergent CABG x [address] Hawley on 12/20/17. He has a reported history of pulmonary fibrosis which complicated his respiratory status post-operatively. He was noted to have a leukocytosis but remained afebrile. He was treated with prednisone 10mg daily as well as IV Cefepime. Sputum culture on 12/24/17 revealed pseudomonas aeruginosa. He was discharged home on 12/29/17 on Levaquin as well as prednisone 5mg daily for continued pulmonary treatment. He also sustained an acute kidney injury with his SCr increasing to 1.84 post-operatively after receiving Bumex and metolazone. His reported baseline SCr is 1.3-1.6. Diuretics were held and he was given a slow bolus of IV fluids. His renal function slowly began trending down at time of discharge on 12/29/17 at 1.76. He reports that after returning home where he lives alone, he was doing well. 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 He was instructed to go to the emergency department. He presented to [facility] ED and was transferred to [facility] for continuation of care. Upon arrival to [facility], his weight was noted to be 100.6 kg (decreased from his weight of 106kg at time of CABG). His respiratory status was reportedly stable on his baseline 4L NC with no peripheral edema noted. Dr. Brandon, nephrology, was consulted and all nephrotoxic drugs were held including diuresis. Renal ultrasound was unremarkable. Pulmonary was consulted for further evaluation of his idiopathic pulmonary fibrosis and recommended continuation of prednisone 5mg daily with consideration of PFTs and sleep evaluation as an outpatient. He was treated with gentle hydration with slow improvement in his renal function, trending down to 1.99 on discharge from 3.06 on admission. At the time of discharge, he was recommended to consider SNU but he refused. He was discharged home with home health. Today, 01/08/18, he reports that his home health nurse was checking on him and reported that his oxygen saturation was low at 78% on 4L. He denies any increased shortness of breath, chest pain, abdominal pain, nausea, vomiting or dysuria. He does admit to having increased pedal edema though denies any cough , sputum production, dizziness or lightheadedness. He was brought to [facility] ED via EMS. Upon arrival, he was requiring 10L high flow oxygen which was able to be decreased to 6L with a pulse ox of 91%. Labs were obtained and revealed persistent leukocytosis (WBC 13.7) which is decreased from prior labs at [facility]. Anemia (Hgb 12.3) also noted with hypernatremia (Na 147). SCr remains elevated from base line at 1.9 with BUN 33. Troponin wsa 0.079 and BNP was 2370. CXR was obtained and revealed stable abnormal appearance of chest with bilateral airspace disease. Given his acute on chronic respiratory failure with leukocytosis and hypernatremia, Dr. Beaver was consulted and he was admitted into observation status for further evaluation and treatment. While in the ED, he was given Lasix 40mg IV x 1 dose. Weight on admission was found to be 101kg (as compared to his prior weight on 01/03/18 at 100.6 kg). Objective Vital signs: Temperature 97.0 F 01/17/18 15:22 Pulse Rate 70 01/17/18 15:22 Respiratory Rate 16 01/17/18 08:00 Blood Pressure 103/65 01/17/18 15:22 Pulse Oximetry 96 01/17/18 15:22 Rhythm: Normal Sinus Rhythm Height/Weight/BMI: Weight 99.4 kg - Constitutional Present: no acute distress, well nourished, well developed - Routine HEENT Exam Eye: Present: EOMI ENT: Present: mucous membranes moist, dentition normal - Routine Respiratory Exam Present: diminished air movement. Absent: wheezes - Routine Cardiovascular Exam Present: RRR, S1, S2. Absent: murmur - Routine Abdominal Exam Present: soft, normoactive bowel sounds, non distended. Absent: tenderness - Routine Extremities Exam Present: full ROM - Routine Skin Exam Present: intact, dry, warm - Routine Neurological Exam Present: alert, oriented X3, CN II-XII intact - Routine Lymphatic Exam Lymphatic: Absent: adenopathy - Routine Psychiatric Exam Present: normal affect, cooperative Hospital Course This is a general summary of the patient's hospital course. For more details refer to the complete medical record. Hospital course: 01/08/18 OBS Patient admitted to observation status under the care of Dr. Beaver. Concern for SIRS/sepsis, though no infection identified. Suspect pulmonary source. Initiate zosyn IV for empiric pulmonary coverage. Lasix 40mg IV x 1 dose given in ED due to concern for fluid overload. Weight up 1 kg in 1 week. Monitor urinary output closely as well as daily weight. Given persistent leukocytosis with respiratory failure, will obtain blood cultures as well as sputum culture. Sputum culture on 12/24/17 revealed pseudomonas aeruginosa which was treated with Cefepime while inpatient and Levaquin as outpatient - course complete. Initial lactate 1.8. Troponin 0.079 and BNP 2370. Will monitor serial troponins and lactates. Will monitor closely on telemetry with continuous pulse oximetry. Supplemental oxygen as needed to maintain SAO2 >90%. Baseline on 4L NC at home. Will consult pulmonology given history of pulmonary fibrosis. Continue home prednisone 5mg daily. Initiate DuoNeb treatments as well as Pulmicort. Incentive spirometry. SCr elevated compared to baseline at 1.9. 1.99 on 01/06/18. Continue to monitor closely. Recheck labs in AM to monitor blood counts, electrolytes and renal function. Upon discharge, his care will be returned to [place]. He requests to be a FULL CODE. 01/09/18 With continued increased need for oxygen above and beyond baseline, coupled with pneumonia, will change admission status to inpatient. Continued increased oxygen demand, elevated renal function and white blood count. Suspect pulmonary source - pneumonia. Continue Zosyn IV for empiric pulmonary coverage (day 2). Blood and sputum cultures pending. Slight increase in SCr to 2.0 (up from 1.9). Lasix 40mg IV x 1 dose given in ED prior to admission. Urinary output adequate. Continue to monitor urinary output closely. Hypernatremia with slight increase in Na to 148. Patient appears clinical dry. Will initiate NS 75cc/hr for gentle hydration. Initial lactate 1.8 - decreased to 1.6. Troponin 0.079, 0.089, 0.105, 0.106, 0.098. Will consult cardiology given recent CABG and persistent tachycardia. Will monitor closely on telemetry with continuous pulse oximetry. Supplemental oxygen as needed to maintain SAO2 >90%. Baseline on 4L NC at home. Wean as able. Continues to have increased oxygen demands. Will consult pulmonology given history of pulmonary fibrosis. Continue home prednisone 5mg daily. Initiate DuoNeb treatments as well as Pulmicort. Incentive spirometry. Continue respiratory cares. 01/10/18 Bi-pap started due to increased labored breathing. Continue to monitor renal function and electrolytes. Creatinine decreased to 1.8 today. Continue Zosyn, adding Vancomycin for pulmonary coverage. Continues on chronic home dose of Prednisone. Cardiology increased Coreg to 12.5mg BID and started Lasix 40mg IV BID. Appreciate consultations by Dr. Drummond and Dr. Riley. 01/11/18 Continue with Zosyn (Day 4) and Vancomycin (Day 2) for pulmonary coverage. Will increase Prednisone to 50mg to try to help respiratory status. May have lorazepam 0.5mg IV q 4 hours prn anxiety/air hunger Not having symptoms, but prudent to be available. Continues with BiPAP to help decrease work of breathing Saturations 94-95% on 60% FIO2. Resp rate increased at 25-34. With findings on CT scan, Dr Drummond recommended pulmonary Bx. Patient and family not wanting this procedure. Cardiology increased carvedilol to 25mg due to persistent tachycardic. Lasix change to 40mg po BID - will need to monitor BP/Creatinine due to potential for overdiuresis. CO2 increased to 32. Creatinine 2.1. 01/12/18 Continue with Zosyn (Day 5) and Vancomycin (Day 3) for pulmonary coverage. Able to transition from BiPAP to high flow O2 - Have BiPAP available as needed. Will place consult for PT/OT to help with improving functional status and activities. HR and BP stable with current CV medications. Creatinine stable at 1.9. CO2 with slight decrease to 29 01/13/18 Continue with Zosyn (Day 6) and Vancomycin (Day 4) for pulmonary coverage. Continue to use high flow 02 and bipap prn. Work with PT today to determine functional status and recommendations for post- DC care. Continue current meds but change lasix to IV 80 mg Q8H today and monitor I/O. Add metolazone 5 mg daily today and assess response. Renal panel, Mg, CBC in AM for surveillance of electrolytes with diuretics and assessment of WBC. HR and BP stable with current CV medications. Creatinine stable at 1.9; monitor with more aggressive diuresis. 01/14/18 Continue with Zosyn (Day 7) and Vancomycin (Day 5) for pulmonary coverage; may be able to stop tomorrow if still improving Continue to use high flow 02 and bipap prn; wean 02 as tolerated Work with PT to determine functional status and recommendations for post-DC care. Decrease lasix to 40 mg IV Q12H today Hold further metolazone Continue daily weights and strict I/Os Replete potassium po 120 meq and monitor recheck Renal panel, Mg, CBC in AM for surveillance of electrolytes with diuretics and assessment of WBC. HR and BP stable with current CV medications. Creatinine stable at 2.1; monitor with more aggressive diuresis, has some prerenal azotemia but within his chronic range and he will do better from a pulm standpoint if he is kept on the dry side. 01/15/18 Continue with Zosyn (Day 8) and Vancomycin (Day 6) for pulmonary coverage; Consider stopping Baseline home oxygen is 4 liters and patient is currently at 3 liters. He does continue to use BiPAP as needed Continue to monitor daily weights and intake and output. Lasix remains on hold. Monitor potassium routinely as this has normalized Creatinine has trended up today to 2.5 suspect prerenal azotemia Recheck CBC, BMP tomorrow am Continue to encourage work with PT and OT for strengthening. Patient does plan to be discharged home with his son at time of discharge 01/16/[address] Drummond- can discontinue IV antibiotics as he has been covered since 12/24 Will continue with Prednisone 40mg daily and taper down to 5 mg Continue with oxygen at baseline 3-4 Liters Continue to monitor renal function- It is trending down. Will check again tomorrow Hopeful for discharge tomorrow Home health set up by Home oxygen tanks and supplies delivered Case discussed with Dr Flanagan 01/17/18- discharge Patient is seen and examined multiple times prior to discharge. oximetry in the room did reveal increased need for oxygen. With ambulation. Patient required 10 liter of oxygen to maintain adequate saturations. At rest patient required 4-5 liters of oxygen. This is arranged through his home health and higher concentration that goes up until 10 liters is going to be delivered to the hospital prior to discharge. Otherwise patient is to be discharged home with his son. Cardiology recommends continuing on Lasix 40 milligrams daily with 20 milliequivalents of oral potassium supplementation daily. He will continue on prednisone 40 milligrams daily for 2 weeks, then 20 milligrams daily until followed up with primary. He will have outpatient lab done on , BMP at that time drawn by home health and results faxed to primary care. He does have a follow-up appointment scheduled with his primary care at the [facility], Dr. Ankit Calderón on 01/25/18. He is discharged in stable condition. 01/17/2018-5:30 PM-I examined the patient independently. I reviewed this chart, the patient history, and the RAIL TRA[employer]ATOR's/PA's documented findings as above. We discussed and formulated the assessment and plan as above with the additions below.-Dr. Flanagan Patient was seen earlier today accompanied by one of his sons. He states he is feeling well and ready for dismissal. His breathing is back to baseline. He is requiring 10 L of oxygen with activity and 4-5 L at rest. He finished treatment for Pseudomonas pneumonia. He is eating and drinking well. He was treated for pulmonary edema with diuretics. He has had some improvement in his breathing with steroids as well. On 01/17/2018, the patient appears to be ready for dismissal. He will have close follow-up with his primary care provider. He will have lab work to check on these metabolic profile next week. Home health will continue to see him after discharge. On exam today he is alert and oriented and in no acute distress. He has fine dry crackles in the lung bases. Cardiovascular reveals a regular rate and rhythm. Abdomen is soft and nontender. Extremities are free of edema. We will dismiss to home today with family. Time spent with patient: discharge greater than 30 minutes Resuscitation Status: Full Code Discharge Plan - Discharge Disposition Discharge Date: 01/17/18 Disposition: 01 Discharged Home, Self-Care *Condition: Improved Reason For Visit (Visit label in EMR): hypoxia,ERIC - Discharge Medications *Discharge Medications: New PEG 3350 17gm PACKET [Miralax] 17 gm PO DAILY packet Potassium Chloride [K-DUR 20 mEq Tablet] 1 tab PO DAILY #30 tab PredniSONE [Deltasone 20 mg] 40 mg PO WB #40 tab Furosemide [Lasix] 40 mg PO DAILY #30 tab Continue Aspirin [Adult Aspirin] 81 mg PO DAILY Carvedilol 6.25 mg PO BID Atorvastatin [Lipitor] 40 mg PO DAILY Multi-Vitamin Plain [Theragran] 1 tab PO DAILY Finasteride [Proscar] 5 mg PO DAILY Discontinued PredniSONE [Deltasone 5 mg] 5 mg PO DAILY - Discharge Packet/Instructions *Diet: regular *Activity: Activity as tolerated *Pain Management/Treatment: Tylenol as needed for pain *Wound Care: None Additional Instructions: Take Prednisone 40 mg daily for 2 weeks, then 20mg daily for until follow up. Lasix (water pill) 40 mg daily. Potassium 20 Meq daily. Will need to have lab draw on monday01/22/18- [facility]. Use 4-5L oxygen at rest and 10 liters with ambulation *Expected Signs/Symptoms: Continued improvement in breathing *Notify Physician if: Fever, chills, chest pain, worsening shortness of breath *During Business Hours Contact: Contact PCP [place] the [place] *After Business Hours Contact: Page oncall physician at [place] *Pending Lab/Results: No Pending Lab - Referrals/Follow Up *Referrals/Follow Up: Ankit Calderón MD [Primary Care Provider] - 01/25/18 1:00 pm (Please sshedule follow up apt for 1 week) - Patient Handouts Patient Handouts: Hypoxia (GEN) - Dismissal Complete Discharge Instructions are:: Complete Physician Narrative - Narrative Attestation Narrative: Date: 01/17/18 Time: 552
[2018-01-17 16:28] VITALS: PULSE 71
== END 2018-01-17 18:00 | disposition home health service (06) | DRG 189 ==
LOC: MED 12:09 → ED 12:09 → SUATTDRO 14:57 → MED 15:40 → SUATTDRO 01-09 10:15
PROVIDERS: ADMIT Internal Medicine Cardiovascular Disease; ATTEND Internal Medicine